=== PATIENT | female | born 1955 | race Caucasian/White ===

== ENCOUNTER → 2019-10-19 | Outpatient (CLI) | payer MEDICARE, OTHER, SELFPAY | PROVIDERS: Family Provider Family Medicine; Visit Provider Specialist | DX: M17.11 Unilateral primary osteoarthritis, right knee (principal) | CPT/HCPCS: L1812 ==

== ENCOUNTER 2019-10-28 10:49 | Outpatient (CLI) | payer MEDICARE, OTHER, SELFPAY ==
--- NOTE | 2019-10-28 10:59 | MR_ITS ---
WS: [id number] MRI RIGHT KNEE NONCONTRAST TECHNIQUE: Axial PD, coronal PD fat sat, coronal PD, sagittal PD, and sagittal PD fat-sat images obta ined. CLINICAL INFORMATION: PRIMARY OSTEOARTHRITIS RT KNEE COMPARISON: None. FINDINGS: Anterior and posterior cruciate ligaments are intact. Distal quadriceps and patella tendons are intac t. Hypertrophic patella. Normal lateral meniscus. Chronic appearing narrowing of the medial joint compartment. Moderate chondromalacia and subchondral edema in the dista l medial femoral condyle. Chronic blunting of the medial meniscus. No acute appearing meniscal tears. Hypertrophic changes along the joint line. Medial and lateral collateral ligaments are intact. Mild c hondromalacia patella. Medial and lateral patellar retinacula appear intact. MR/MR knee RT wo con* [id number] IMPRESSION: 1. Anterior and posterior cruciate ligaments are intact. 2. Chronic thinning of the medial meniscus with moderate chondromalacia involv ing the medial joint compartment with joint space narrowing. 3. Subchondral edema medial femoral condyle. 4. Normal-appearing lateral meniscus. 5. Moderate chondromalacia patella. No subchondral edema.
== END 2019-10-28 10:50 | disposition home or self-care (01) ==
LOC: RADSHAW 10:55
PROVIDERS: Family Provider Family Medicine; PCP Family Medicine; Visit Provider Specialist
DX: M17.11 Unilateral primary osteoarthritis, right knee (principal); M22.41 Chondromalacia patellae, right knee
CPT/HCPCS: 73721

== ENCOUNTER 2019-11-25 09:26 | Outpatient (RCR) | payer MEDICARE, OTHER, SELFPAY | END 2019-12-19 23:59 | disposition home or self-care (01) | LOC: SPT 09:26 | PROVIDERS: Family Provider Family Medicine; PCP Family Medicine; Referring Provider Specialist; Visit Provider Specialist | DX: M17.11 Unilateral primary osteoarthritis, right knee (principal) | CPT/HCPCS: 97110; 97161; 97530 ==

== ENCOUNTER 2019-12-20 06:00 | Outpatient (RCR) | payer MEDICARE, OTHER, SELFPAY | END 2020-01-19 23:59 | disposition home or self-care (01) | LOC: SPT 06:00 | PROVIDERS: Family Provider Family Medicine; PCP Family Medicine; Referring Provider Specialist; Visit Provider Specialist | DX: M17.11 Unilateral primary osteoarthritis, right knee (principal) | CPT/HCPCS: 97110 ==

== ENCOUNTER 2019-12-22 16:17 | Emergency (ER) | payer MEDICARE, OTHER, SELFPAY ==
[2019-12-22 16:20] VITALS: BP 131/87; PULSE 91; RESP 15; TEMP 36.9; O2SAT 99; BMI 36.8
--- NOTE | 2019-12-22 18:20 | ED_ITS ---
Entered by Cj Perez LPN, acting as scribe for Bradley Cool MD Dec 22, 2019 16:17 HPI - Abdominal Pain General: Chief Complaint: Abdominal Pain Stated Complaint: left sided abd pain Time Seen by Provider: 12/22/19 18:04 Source: patient Limitations: no limitations History of Present Illness: HPI narrative: 64 yo female presents with c/o left upper abd pain/ pain under the left ribs that started 2-3 days ago. She reports it was 10/10 on arrival to ER. She denies any n/v/d. She denies any rash. She was prescribed Zetia 5-6 weeks ago, had a bad headache the first day she took i t, then developed pain in the left abd, had that pain for about one week and stopped the Zetia. Pain improved some, then worsened again a couple days later. She had antiemetic at home that she took for nausea and it improved some. About one week ago the pain worsened again, she saw the walk in clinic and was prescribed Ranitidine, has been taking it, pain waxing and waning, now worse again for 2-3 days. She denies any chest pain or sob. Denies fever. Associated Symptoms: Reports nausea (has been nauseated, not in the last couple days. ); Denies chills, diarrhea, dysuria, fever(s) and vomiting Review of Systems Const: Denies: fever, chills, body aches or change in appetite Eyes: Denies: blurry vision or eye discomfort ENMT: Denies: throat pain or dental pain Card: Denies: chest pain Resp: Denies: shortness of breath GI: Reports: abdominal pain and nausea (has been nauseated, not in the last couple days. ); Denies: vomiting or diarrhea : Denies: painful urination Musc: Denies: neck pain or back pain Skin/Breast: Denies: rash Neuro: Denies: headache Psych: Denies: depression David/Lymph: Denies: easy bruising All/Imm: Denies: hives PFSH ED PFSH: Social History Smoking and tobacco status: never smoked Alcohol intake: never Physical Exam Const: COMMON NORMALS: no apparent distress, oriented x3 and healthy appearing HENMT: COMMON NORMALS: normocephalic and head/scalp atraumatic HEAD & SCALP: normocephalic and atraumatic Eye: COMMON NORMALS: PERRL and EOMs intact bilaterally PUPIL: Yes PERRL Neck/C-Spine: COMMON NORMALS: full ROM and supple Chest: COMMONS NORMALS: inspection of chest normal and palpation of chest normal Resp: COMMON NORMALS: normal respiratory effort, no retractions, no use of accessory muscles and clear to auscultation bilaterally AUSCULTATION: clear to auscultation bilaterally Cardio: COMMON NORMALS: regular rate, regular rhythm and no murmurs RATE: regular rate RHYTHM: regular rhythm GI: COMMON NORMALS: normal to inspection, nondistended, normoactive bowel sounds, soft to palpation and no masses PALPATION: Yes soft and Yes tender Details: LUQ Extremity: COMMON NORMALS: normal to inspection and full ROM Neuro: COMMON NORMALS: oriented x3, moves all extremities and no focal motor deficits Psych: COMMON NORMALS: mental status grossly normal, thought process normal and cooperative THOUGHT PROCESS: normal thought process Skin: COMMON NORMALS: no rashes or lesions noted and no wounds GENERAL SKIN EXAM: no rashes or lesions noted Course Vital Signs: Vital signs: Vital Signs Temperature 98.4 F 12/22/19 16:20 Pulse Rate 92 12/22/19 21:24 Respiratory Rate 18 12/22/19 21:24 Blood Pressure 127/70 12/22/19 21:24 Pulse Oximetry 98 12/22/19 21:24 MDM - Abdominal Pain MDM Narrative: Medical decision making narrative: Dionne presents with abdominal pain that is atypical in nature. CT scan here shows no acute findings. She does have a long history of IBS. Patient is stable for discharge and is to follow-up with primary care doctor in 3 to 5 days and return if worsening. Lab Data: Labs: Lab Results 12/22/19 12/22/19 12/22/19 Range/Units 18:12 18:37 18:37 WBC 10.8 H (4.0-10.0) 10^3/ uL RBC 4.48 (4.1-5.3) 10^6/u L Hgb 14.1 (11.5-15.3) g/dL Hct 42.2 (37.0-47.0) % MCV 94.2 (81-99) fL MCH 31.5 (28.0-34.0) pg MCHC 33.4 (30.0-36.0) g/dL RDW 12.8 (12.1-15.1) % Plt Count 382 (130-400) 10^3/c mm MPV 9.1 (7.4-10.4) fL Neut % (Auto) 59.5 % Lymph % (Auto) 22.7 % Glades % (Auto) 7.9 % Eos % (Auto) 8.7 % Baso % (Auto) 0.6 % Neut # (Auto) 6.4 (1.8-7.7) 10^3/u L Lymph # (Auto) 2.4 (0.8-4.8) 10^3/u L Glades # (Auto) 0.9 (0.2-0.9) 10^3/u L Eos # (Auto) 0.9 H (0.0-0.8) 10^3/u L Baso # (Auto) 0.1 (0.0-0.1) 10^3/u L Nucleated RBC % (a uto) 0 % Nucleated RBCs # 0.0 /100WBC Sodium 135 L (136-145) mmol/L Potassium 4.0 (3.5-5.1) mmol/L Chloride 95 L (98-107) mmol/L Carbon Dioxide 24 (22-29) mmol/L Anion Gap 20.0 H (5-19) BUN 13 (8-23) mg/dL Creatinine 0.8 (0.5-0.9) mg/dL GFR Calculation 72.0 L (90-130) mL/min Glucose 92 (65-115) mg/dL Calcium 9.8 (8.5-10.5) mg/dL Total Bilirubin 0.4 (0.15-1.2) mg/dL AST 49 H (0-32) U/L ALT 66 H (0-33) U/L Alkaline Phosphata se 86 (35-105) IU/L Total Protein 7.8 (6.6-8.7) g/dL Albumin 4.3 (3.5-5.2) g/dL Globulin 3.5 (1.3-4.6) g/dL Lipase 14 (13-60) U/L Urine Color Yellow (Yellow) Urine Appearance Clear (CLEAR) Urine pH 5 (5-7) Ur Specific Gravit y 1.010 (1.005-1.030) Urine Protein Neg (Negative) Urine Glucose (UA) Norm (Normal) Urine Ketones Negative (Negative) Urine Blood Neg (Negative) Urine Nitrate Negative (Negative) Urine Bilirubin Neg (NEGATIVE) Urine Urobilinogen Norm (Negative) mg/dL Ur Leukocyte Dilcia ase Negative (Negative) Imaging Data ^: CT Abd/Pel: Radiologist's impression: [address] [address] [address] Scan Report Signed Patient: Dionne Lu Unit #: [id number] : 1955 Age/Sex: 64 / F ADM Date: 12/22/19 Loc: ER Room/Bed: Attending Dr: Ordering Provider/Ordering MD: Bradley Cool MD Date of Service: 12/22/19 Procedure(s): CT abdomen pelvis w con* [id number] Accession Number(s): [id number] Report Number: [id number] PROCEDURE INFORMATION: Exam: CT Abdomen And Pelvis With Contrast Exam date and time: 12/22/2019 7:14 PM Age: 64 years old Clinical indication: Abdominal pain; Localized; Left lower quadrant (llq); Additional info: Abd pain TECHNIQUE: Imaging protocol: Computed tomography of the abdomen and pelvis with intravenous contrast. Total DLP: 1678.93 mGy-cm Radiation optimization: All CT scans at this facility use at least one of these dose optimization techniques: automated exposure control; mA and/or kV adjustment per patient size (includes targeted exams where dose is matched to clinical indication); or iterative reconstruction. Contrast material: OMNI 300; Contrast volume: 95 ml; Contrast route: RT AC; COMPARISON: MRI Hip w/o RIGHT [id number] 07/23/2018 10:26 AM FINDINGS: Lungs: Subpleural 5 mm calcified granuloma right lower lobe. Liver: Hepatomegaly at 20 cm. No mass. Gallbladder and bile ducts: Gallbladder not visualized and presumed surgically absent. No intra or extrahepatic biliary ectasia. Pancreas: Normal. No ductal dilation. Spleen: Splenic calcifications of antecedent granulomatous disease. Adrenals: Normal. No mass. Kidneys and ureters: Normal. No hydronephrosis. Stomach and bowel: Extensive diverticulosis coli primarily the sigmoid colon without evidence for acute diverticulitis. No visible evidence of epiploic appendagitis. Appendix: Appendix not visualized and presumed surgically absent. Intraperitoneal space: Unremarkable. No free air. No significant fluid collection. Vasculature: Arterial sclerosis. No abdominal aortic aneurysm. Lymph nodes: Unremarkable. No enlarged lymph nodes. Bladder: Unremarkable as visualized. Reproductive: Unremarkable as visualized. Bones/joints: Inter pedicle screw fixation L3, L4, and L5. Degenerative disease and degenerative disc disease of the spine. Spondylosis deformans. Mild levoscoliosis. Soft tissues: Unremarkable. Other findings: Calcified granulomas of antecedent histoplasmosis. CT/CT abdomen pelvis w con* [id number] IMPRESSION: 1. No visible evidence of active or acute abdominal or pelvic pathologic process. 2. Numerous non urgent, nonemergent, chronic, and age related findings detailed in text above. Radiation Dose CTDIVOL = (mGy): DLP = 1678.93 (mGy-cm) Discharge Plan Discharge Patient Disposition: Home, Self-Care Clinical Impression: Abdominal pain Qualifiers: Abdominal location: left upper quadrant Qualified Code(s): R10.12 - Left upper quadrant pain Condition: Stable Prescriptions: New Zofran 4 mg tablet 4 mg PO QID PRN (Reason: nausea and vomiting) Qty: 14 RF: 0 No Action Prempro 0.3-1.5 mg tablet 1 tab PO DAILY RF: 0 glipizide 10 mg tablet 10 mg PO DAILY RF: 0 pantoprazole [Protonix] 20 mg tablet,delayed release (DR/EC) 20 mg PO QDAY RF: 0 dicyclomine 10 mg capsule 10 mg PO TID RF: 0 metoprolol succinate 25 mg tablet extended release 24 hr 12.5 mg PO BID RF: 0 promethazine 25 mg tablet 25 mg PO BID PRNRF: 0 lisinopril-hydrochlorothiazide 10-12.5 mg tablet 1 tab PO DAILY RF: 0 Zyrtec 10 mg capsule 10 mg PO DAILY RF: 0 metformin 1,000 mg tablet 1,000 mg PO QDAY RF: 0 levothyroxine 150 mcg capsule 150 mcg PO DAILY RF: 0 cholestyramine (with sugar) 4 gram powder 4 gm PO BID RF: 0 Discharge Orders: Discharge Order (Routine); Ordered 12/22/19 Ordered By: Bradley Cool Referrals: Neel Harris MD [Primary Care Provider] - 4-7 days Discharge Diet: Advance as tolerated Discharge Activity: Resume usual activity Patient Instructions: Abdominal Pain (ED) Discharge Date/Time: 12/22/19 21:25 Coding Level of Care Code ED Painter Set for Chg Fwd Exam Comprehensive The documentation recorded by the Chris frazier Dani Elizabeth, LPN, accurately reflects the service I personally performed and the decisions made by Travon beard Korby, MD Dec 22, 2019 16:17
--- NOTE | 2019-12-22 18:24 | CTR_ITS ---
PROCEDURE INFORMATION: Exam: CT Abdomen And Pelvis With Contrast Exam date and time: 12/22/2019 7:14 PM Age: 64 years old Clinical indication: Abdominal pain; Localized; Left lower quadrant (llq); Additional info: Abd pain TECHNIQUE: Imaging protocol: Computed tomography of the abdomen and pelvis with intravenous contrast. Total DLP: 1678.93 mGy-cm Radiation optimization: All CT scans at this facility use at least one of these dose optimization techniques: automated exposure control; mA and/or kV adjustment per patient size (includes targeted exams where dose is matched to clinical indication); or iterative reconstruction. Contrast material: OMNI 300; Contrast volume: 95 ml; Contrast route: RT AC; COMPARISON: MRI Hip w/o RIGHT [id number] 07/23/2018 10:26 AM FINDINGS: Lungs: Subpleural 5 mm calcified granuloma right lower lobe. Liver: Hepatomegaly at 20 cm. No mass. Gallbladder and bile ducts: Gallbladder not visualized and presumed surgically absent. No intra or extrahepatic biliary ectasia. Pancreas: Normal. No ductal dilation. Spleen: Splenic calcifications of antecedent granulomatous disease. Adrenals: Normal. No mass. Kidneys and ureters: Normal. No hydronephrosis. Stomach and bowel: Extensive diverticulosis coli primarily the sigmoid colon without evidence for acute diverticulitis. No visible evidence of epiploic appendagitis. Appendix: Appendix not visualized and presumed surgically absent. Intraperitoneal space: Unremarkable. No free air. No significant fluid collection. Vasculature: Arterial sclerosis. No abdominal aortic aneurysm. Lymph nodes: Unremarkable. No enlarged lymph nodes. Bladder: Unremarkable as visualized. Reproductive: Unremarkable as visualized. Bones/joints: Inter pedicle screw fixation L3, L4, and L5. Degenerative disease and degenerative disc disease of the spine. Spondylosis deformans. Mild levoscoliosis. Soft tissues: Unremarkable. Other findings: Calcified granulomas of antecedent histoplasmosis. CT/CT abdomen pelvis w con* [id number] IMPRESSION: 1. No visible evidence of active or acute abdominal or pelvic pathologic process. 2. Numerous non urgent, nonemergent, chronic, and age related findings detailed in text above. Radiation Dose CTDIVOL = (mGy): DLP = 1678.93 (mGy-cm)
[2019-12-22] MEDS: sodium chloride 0.9% 1,000 ML 999 ML IV (18:34)
[2019-12-22] MEDS: morphine 4 mg/mL SDV 1 mL IVP ×2 (18:39→20:09)
[2019-12-22] MEDS: ondansetron 2 mg/ML SDV 2 mL 4 MG IVP ×2 (18:39→20:09)
[2019-12-22 18:46] LABS: Basophils # 0.1 10^3/uL (0.0-0.1); Basophils % 0.6 %; Eosinophils # 0.9 10^3/uL (0.0-0.8); Eosinophils % 8.7 %; Hematocrit 42.2 % (37.0-47.0); Hemoglobin 14.1 g/dL (11.5-15.3); Lymphocytes # 2.4 10^3/uL (0.8-4.8); Lymphocytes % 22.7 %; Mean Corpuscular HGB Conc 33.4 g/dL (30.0-36.0); Mean Corpuscular Hemoglobin 31.5 pg (28.0-34.0); Mean Corpuscular Volume 94.2 fL (81-99); Mean Platelet Volume 9.1 fL (7.4-10.4); Monocytes # 0.9 10^3/uL (0.2-0.9); Monocytes % 7.9 %; Neutrophils # 6.4 10^3/uL (1.8-7.7); Neutrophils % 59.5 %; Nucleated Red Blood Cells % 0 %; Platelet Count 382 10^3/cmm (130-400); Red Blood Count 4.48 10^6/uL (4.1-5.3); Red Cell Distribution Width 12.8 % (12.1-15.1); White Blood Count 10.8 10^3/uL (4.0-10.0)
[2019-12-22 18:46] LABS: Add Urine Microscopic? NO
[2019-12-22 18:58] LABS: Bilirubin Urine Neg (NEGATIVE); Blood Urine Neg (Negative); Glucose Urine UA Norm (Normal); Ketones Urine Negative (Negative); Leukocyte Esterase Urine Negative (Negative); Nitrate Urine Negative (Negative); Protein Urine Neg (Negative); Urine Appearance Clear (CLEAR); Urine Color Yellow (Yellow); Urobilinogen Urine Norm (Negative); pH Urine 5 (5-7)
[2019-12-22 19:02] LABS: Alanine Aminotransferase 66 U/L (0-33); Albumin Level 4.3 g/dL (3.5-5.2); Alkaline Phosphatase 86 IU/L (35-105); Blood Urea Nitrogen 13 mg/dL (8-23); Calcium 9.8 mg/dL (8.5-10.5); Carbon Dioxide 24 mmol/L (22-29); Chloride 95 mmol/L (98-107); Globulin 3.5 g/dL (1.3-4.6); Glucose 92 mg/dL (65-115); Lipase 14 U/L (13-60); Sodium 135 mmol/L (136-145); Total Bilirubin 0.4 mg/dL (0.15-1.2); Total Protein 7.8 g/dL (6.6-8.7)
[2019-12-22 19:04] LABS: Aspartate Amino Transferase 49 U/L (0-32)
[2019-12-22] MEDS: iohexol 300 mg/mL 100 mL Btl IV (19:28)
[2019-12-22 20:08] VITALS: BP 149/76; PULSE 97; RESP 18; O2SAT 99
[2019-12-22 20:09] VITALS: RESP 18; O2SAT 99
[2019-12-22] MEDS: metoclopramide 5 mg/mL SDV 2 mL IVP (20:45)
[2019-12-22] MEDS: diphenhydrAMINE 50 mg/mL SDV 1mL 25 MG IVP (20:48)
[2019-12-22 21:24] VITALS: BP 127/70; PULSE 92; RESP 18; O2SAT 98
== END 2019-12-22 21:25 | disposition home or self-care (01) ==
PROVIDERS: Emergency Provider Emergency Medicine; Family Provider Family Medicine; PCP Family Medicine
DX: R10.9 Unspecified abdominal pain (principal)
CPT/HCPCS: 36415; 74177; 80053; 81003; 83690; 85025; 96360; 96361; 96374; 96375; 96376; 99283; 99284; J1200; J2270; J2405; J2765; J7030; Q9967

== ENCOUNTER → 2020-01-04 11:05 | Outpatient (BNVA) | payer MEDICARE, OTHER, SELFPAY | PROVIDERS: Family Provider Family Medicine; PCP Family Medicine; Visit Provider Obstetrics & Gynecology | DX: C53.9 Malignant neoplasm of cervix uteri, unspecified (principal); Z78.9 Other specified health status | CPT/HCPCS: 88175 ==

== ENCOUNTER 2020-01-20 06:00 | Outpatient (RCR) | payer MEDICARE, OTHER, SELFPAY | END 2020-02-18 23:59 | disposition home or self-care (01) | LOC: SPT 06:00 | PROVIDERS: Family Provider Family Medicine; PCP Family Medicine; Referring Provider Specialist; Visit Provider Specialist | DX: M17.11 Unilateral primary osteoarthritis, right knee (principal) | CPT/HCPCS: 97110 ==

== ENCOUNTER 2020-02-19 06:00 | Outpatient (RCR) | payer MEDICARE, OTHER, SELFPAY | END 2020-03-20 23:59 | disposition home or self-care (01) | LOC: SPT 06:00 | PROVIDERS: Family Provider Family Medicine; PCP Family Medicine; Referring Provider Specialist; Visit Provider Specialist | DX: M17.11 Unilateral primary osteoarthritis, right knee (principal) | CPT/HCPCS: 97110 ==

== ENCOUNTER 2020-07-08 10:23 | Outpatient (CLI) | payer MEDICARE, OTHER, SELFPAY ==
--- NOTE | 2020-07-08 10:36 | MM_ITS ---
WS: [id number] BILATERAL DIGITAL SCREENING MAMMOGRAPHY WITH CAD CLINICAL INFORMATION: SCREENING HISTORY: Screening mammogram. No current complaints. COMPARISON: May 27, 20192017, 2015. TECHNIQUE: Bilateral CC and MLO views. FINDINGS: The breasts are composed of heterogeneous fibroglandular density tissue, which can limit the detectio n of small underlying mass lesions. Increasing asymmetric density upper outer left breast measuring 7 mm. Recommend spot compression views and ultrasound for further evaluation. A few incidental punctat e calcifications. Right breast is unchanged. MM/[place] [id number] IMPRESSION: BI-RADS: 0-Incomplete: Need additional imaging evaluation FOLLOW UP: Need Additional Imaging Recommend left diagnostic mammogram with spot compression views and ultrasound for further evaluation.
--- NOTE | 2020-08-15 10:53 | PC.NURSE ---
Spoke with Dr. Reeves nurse about pt abnormal mammo of Left breast. Biopsy recommended per radiologist. Nurse okay'd a verbal order to go ahead with biopsy as recommended. Jaron BILLS
--- NOTE | 2020-08-15 11:00 | PC.NURSE ---
Called patient regarding mammo result, recommending Bx. Patient has not seen Dr. Reeves since December. I requested the patient to see Dr. Reeves as soon as she can, so we can get the Bx done. Pt voiced understanding and will call office to schedule. Pt questions regarding Bx procedure answered, no other needs at this time. Jaron BILLS
== END 2020-07-08 10:24 | disposition home or self-care (01) ==
LOC: RADSHAW 10:27
PROVIDERS: PCP Family Medicine; Visit Provider Obstetrics & Gynecology
DX: Z12.31 Encounter for screening mammogram for malignant neoplasm of breast (principal); N64.89 Other specified disorders of breast
CPT/HCPCS: 77067

== ENCOUNTER 2020-08-12 09:13 | Outpatient (CLI) | payer MEDICARE, OTHER, SELFPAY ==
--- NOTE | 2020-08-12 09:33 | US_ITS ---
WS: [id number] LEFT DIGITAL MAMMOGRAPHY WITH CAD CLINICAL INFORMATION: LT BREAST ASYMMETRY COMPARISON: July 08, 2020 TECHNIQUE: 4 views of the left breast were obtained. FINDINGS: The left breast is composed of heterogeneous fibroglandular density tissue, which can limit the detec tion of small underlying mass lesions. A few punctate calcifications. Again seen is the 7 mm asymmetr ic density upper outer left breast. Ultrasound is pending. ULTRASOUND BREAST LEFT TECHNIQUE: Ultrasound left breast focused area of concern. CLINICAL INFORMATION: LT BREAST ASYMMETRY FINDINGS: Ultrasound left breast 1 to 3:00 position. Dense underlying parenchymal tissue. Hypoechoic lesion at the 3:00 position is not definitely cystic and may represent dilated duct or intraductal lesion. Onesimo mmend further evaluation with ultrasound-guided biopsy. US/US breast LT limited* [id number] BI-RADS: 4-Suspicious Finding-Biopsy Should Be Considered FOLLOW UP: US Guided Biopsy Recommended
--- NOTE | 2020-08-16 14:39 | PC.NURSE ---
Called patient to let her know Bx appt 08/22/20, check in at noon. Went over Bx information and instructions. Patient voiced understanding, and all questions were answered to patient satisfaction. Jaron BILLS
== END 2020-08-12 09:14 | disposition home or self-care (01) ==
LOC: RADSHAW 09:16
PROVIDERS: PCP Family Medicine; Visit Provider Obstetrics & Gynecology
DX: N64.89 Other specified disorders of breast (principal)
CPT/HCPCS: 76642; 77065

== ENCOUNTER 2020-08-22 12:18 | Outpatient (CLI) | payer MEDICARE, OTHER, SELFPAY ==
--- NOTE | 2020-08-22 13:00 | US_ITS ---
WS: [id number] ULTRASOUND-GUIDED LEFT BREAST BIOPSY CLINICAL INFORMATION: Abnormal Mammogram, Left Breast Lesion COMPARISON: None. FINDINGS: The procedure including risks, benefits, and complications were discussed with the patient who agreed to proceed. Using sterile technique patient was prepped and draped in the usual sterile fashion. Aft er 1% lidocaine utilizing real-time ultrasound guidance 5 14-gauge cores were obtained of the left br east lesion at the 3 o'clock position. Subsequently a titanium clip was placed in the biopsy cavity. No immediate complications. Pathology demonstrates Breast, left, ultrasound-guided biopsy: -Sclerosing adenosis. -No malignancy identified. US/[place] [id number] IMPRESSION: 1. Uncomplicated ultrasound-guided left breast biopsy. 2. The pathology demonstrates sclerosing adenosis. No malignancy identified. 3. Recommend 6 month follow-up left diagnostic mammography and ultrasound to c onfirm stability. BI-RADS: 2-Benign FOLLOW UP: 6 Month Follow-up
== END 2020-08-22 12:19 | disposition home or self-care (01) ==
LOC: RAD 12:22
PROVIDERS: PCP Family Medicine; Visit Provider Obstetrics & Gynecology
DX: R92.8 Other abnormal and inconclusive findings on diagnostic imaging of breast (principal); N64.89 Other specified disorders of breast; N60.22 Fibroadenosis of left breast
CPT/HCPCS: 19083; 88305

== ENCOUNTER → 2021-01-18 13:44 | Outpatient (BNVA) | payer MEDICARE, OTHER, SELFPAY | PROVIDERS: PCP Family Medicine; Visit Provider Obstetrics & Gynecology | DX: R10.31 Right lower quadrant pain (principal); Z90.722 Acquired absence of ovaries, bilateral; Z78.0 Asymptomatic menopausal state | CPT/HCPCS: 76830 ==

== ENCOUNTER 2021-03-06 10:23 | Outpatient (CLI) | payer MEDICARE, OTHER, SELFPAY ==
--- NOTE | 2021-03-06 09:30 | MM_ITS ---
WS: [id number] LEFT DIGITAL MAMMOGRAPHY WITH CAD CLINICAL INFORMATION: Z87.898 - Personal history of other specified conditions COMPARISON: August 12, 2020 TECHNIQUE: 4 views of the left breast were obtained. FINDINGS: The left breast is composed of heterogeneous fibroglandular density tissue, which can limit the detec tion of small underlying mass lesions. Punctate and clustered calcifications appear stable. Prior bio psy marker. Ultrasound is pending. ULTRASOUND BREAST LEFT TECHNIQUE: Ultrasound left breast focused area of concern. CLINICAL INFORMATION: Z87.898 - Personal history of other specified conditions FINDINGS: Ultrasound left breast at the 3:00 position. No suspicious lesions. Normal underlying breast josr aguiar is seen today. No suspicious findings. MM/[place] [id number] IMPRESSION: BI-RADS: 2-Benign FOLLOW UP: See Report Recommend return to annual screening mammography.
--- NOTE | 2021-03-06 10:15 | US_ITS ---
WS: [id number] LEFT DIGITAL MAMMOGRAPHY WITH CAD CLINICAL INFORMATION: Z87.898 - Personal history of other specified conditions COMPARISON: August 12, 2020 TECHNIQUE: 4 views of the left breast were obtained. FINDINGS: The left breast is composed of heterogeneous fibroglandular density tissue, which can limit the detec tion of small underlying mass lesions. Punctate and clustered calcifications appear stable. Prior bio psy marker. Ultrasound is pending. ULTRASOUND BREAST LEFT TECHNIQUE: Ultrasound left breast focused area of concern. CLINICAL INFORMATION: Z87.898 - Personal history of other specified conditions FINDINGS: Ultrasound left breast at the 3:00 position. No suspicious lesions. Normal underlying breast josr aguiar is seen today. No suspicious findings. US/US breast LT limited* [id number] IMPRESSION: BI-RADS: 2-Benign FOLLOW UP: See Report Recommend return to annual screening mammography.
== END 2021-03-06 10:24 | disposition home or self-care (01) ==
LOC: RADSHAW 10:25
PROVIDERS: PCP Family Medicine; Visit Provider Obstetrics & Gynecology
DX: Z87.898 Personal history of other specified conditions (principal); Z85.3 Personal history of malignant neoplasm of breast; R92.8 Other abnormal and inconclusive findings on diagnostic imaging of breast
CPT/HCPCS: 76642; 77065

== ENCOUNTER 2021-07-19 09:29 | Outpatient (RCR) | payer MEDICARE, OTHER, SELFPAY | END 2021-07-20 23:59 | disposition home or self-care (01) | LOC: SPT 09:29 | PROVIDERS: PCP Family Medicine; Referring Provider Family Medicine; Visit Provider Family Medicine | DX: M54.32 Sciatica, left side (principal) | CPT/HCPCS: 97110; 97162 ==

== ENCOUNTER 2021-07-21 06:00 | Outpatient (RCR) | payer MEDICARE, OTHER, SELFPAY | END 2021-08-20 23:59 | disposition home or self-care (01) | LOC: SPT 06:00 | PROVIDERS: PCP Family Medicine; Referring Provider Family Medicine; Visit Provider Family Medicine | DX: M54.32 Sciatica, left side (principal) | CPT/HCPCS: 97110 ==

== ENCOUNTER 2021-08-21 06:00 | Outpatient (RCR) | payer MEDICARE, OTHER, SELFPAY | END 2021-09-19 23:59 | disposition home or self-care (01) | LOC: SPT 06:00 | PROVIDERS: PCP Family Medicine; Referring Provider Family Medicine; Visit Provider Family Medicine | DX: M54.32 Sciatica, left side (principal) | CPT/HCPCS: 97110 ==

== ENCOUNTER 2021-09-20 06:00 | Outpatient (RCR) | payer MEDICARE, OTHER, SELFPAY | END 2021-09-22 23:59 | disposition home or self-care (01) | LOC: SPT 06:00 | PROVIDERS: PCP Family Medicine; Referring Provider Family Medicine; Visit Provider Family Medicine | DX: M54.2 Cervicalgia (principal) | CPT/HCPCS: 97110 ==

== ENCOUNTER 2021-10-04 11:14 | Outpatient (CLI) | payer MEDICARE, OTHER, SELFPAY ==
--- NOTE | 2021-10-04 11:30 | MM_ITS ---
WS: [id number] BILATERAL DIGITAL SCREENING MAMMOGRAPHY WITH CAD CLINICAL INFORMATION: Z12.39 - Encounter for other screening for malignant neop... HISTORY: Screening mammogram. No current complaints. COMPARISON: March 06, 2021 TECHNIQUE: Bilateral CC and MLO views. FINDINGS: Scattered fibroglandular densities bilaterally. Coarse punctate calcifications left breast similar in appearance. Biopsy marker left breast. No suspicious focal mass, asymmetry, calcifications, or archi tectural distortion. No evidence of malignancy. MM/[place] [id number] IMPRESSION: BI-RADS: 2-Benign FOLLOW UP: 1 Year Follow-up Recommend return to annual screening mammography.
== END 2021-10-04 11:15 | disposition home or self-care (01) ==
LOC: RADSHAW 11:17
PROVIDERS: PCP Family Medicine; Visit Provider Obstetrics & Gynecology
DX: Z12.31 Encounter for screening mammogram for malignant neoplasm of breast (principal)
CPT/HCPCS: 77067

== ENCOUNTER 2022-06-11 21:44 | Emergency (ER) | payer MEDICARE, OTHER, SELFPAY ==
[2022-06-11 21:50] VITALS: BMI 34.1
[2022-06-11 21:55] VITALS: BP 119/65; PULSE 108; RESP 16; TEMP 37.5; O2SAT 95
--- NOTE | 2022-06-11 22:00 | XRR_ITS ---
PROCEDURE INFORMATION: Exam: XR Chest Exam date and time: 06/11/2022 10:10 PM Age: 67 years old Clinical indication: Other: Covid positive; Additional info: Cough TECHNIQUE: Imaging protocol: Radiologic exam of the chest. Views: 1 view. COMPARISON: [facility] Chest 2 views 02/29/2016 2:50 PM FINDINGS: Lungs: Shallow inspiration with atelectasis in the left lung base. Probable mild ground-glass opacities in the peripheral lungs. No consolidation. Pleural spaces: Unremarkable. No pleural effusion. No pneumothorax. Heart/Mediastinum: Unremarkable. No cardiomegaly. Bones/joints: Unremarkable. XR/XR chest 1V portable [id number] IMPRESSION: Mild ground-glass opacities in the peripheral lungs are suspicious for pneumonia.
--- NOTE | 2022-06-11 22:15 | W.ED.HA ---
HPI - Headache General: Chief Complaint: Headache Stated Complaint: Covid Time Seen by Provider: 06/11/22 22:02 Source: patient Mode of arrival: ambulatory Limitations: no limitations History of Present Illness: 67-year-old female states of last 2 days she been having cough some slight congestion body aches low-grade fevers and a headache. States that she tested positive for COVID today her also tested positive. Patient here is in no distress she is not hypoxic states that she just has body aches. Denies any vomiting or diarrhea. Denies any worsening proving factors Associated symptoms: Reports fever(s); Deny chest pain, nausea, rash or vomiting Review of Systems Const: Reports: fever(s), chills and body aches Eyes: Denies: blurry vision or eye discomfort ENMT: Denies: throat pain or dental pain Card: Denies: chest pain Resp: Reports: non-productive cough GI: Denies: abdominal pain, nausea, vomiting or diarrhea : Denies: dysuria Musc: Denies: neck pain or back pain Skin/Breast: Denies: rash Neuro: Reports: headache(s) Psych: Denies: depression David/Lymph: Denies: easy bruising All/Imm: Denies: urticaria PFSH ED PFSH: Medical History Diabetes Hypertension Hypothyroidism Surgical History S/P arthroscopy of right shoulder 07/2007 S/P bilateral oophorectomy unknown date LSO S/P cataract extraction 2004, bilateral S/P cervical spinal fusion 06/2007 S/P cholecystectomy S/P dilatation and curettage 2001, 2011, 2016 S/P left rotator cuff repair S/P spinal fusion 07/2010 Status post hip surgery 2019- right hip abductor repair, Dr. Rodrigez Status post hysteroscopic polypectomy 10/16/2017- Performed by Dr. Reeves at [facility] in [place], [place]. Family History Grandmother Diabetes maternal Daughter No problems noted. Brother Diabetes Heart disease Hyperlipidemia Father Heart disease Hyperlipidemia Hypertension Sister Breast cancer age onset unknown Colon cancer age onset unknown Denies family history of Ovarian cancer Clotting disorder Anesthesia complication Bleeding disorder Uterine cancer Thyroid condition Stroke Social History Smoking and tobacco status: never smoked Alcohol intake: never Physical Exam Const: COMMON NORMALS: no acute distress, patient oriented x3 and healthy appearing HENMT: COMMON NORMALS: normocephalic and atraumatic HEAD & SCALP: normocephalic and atraumatic Eye: COMMON NORMALS: Equal, round and reactive pupils present and EOMs intact bilaterally PUPIL: Yes Equal, round and reactive pupils present Neck/C-Spine: COMMON NORMALS: full ROM and supple Chest: COMMONS NORMALS: normal inspection of the chest and normal palpation of entire chest wall Resp: COMMON NORMALS: normal respiratory effort, No retractions, No use of accessory muscles and clear to auscultation bilaterally AUSCULTATION: clear to auscultation bilaterally Cardio: COMMON NORMALS: regular rate, regular rhythm and No murmurs present (Cardio) RATE: regular rate RHYTHM: regular rhythm GI: COMMON NORMALS: Normal to inspection, nondistended, normoactive bowel sounds present, Soft to palpation, non-tender and no masses PALPATION: Yes Soft to palpation Extremity: COMMON NORMALS: normal to inspection and full ROM Neuro: COMMON NORMALS: patient oriented x3, moves all extremities and no focal motor deficits Psych: COMMON NORMALS: mental status grossly normal, Normal thought process present and cooperative THOUGHT PROCESS: Normal thought process present Skin: COMMON NORMALS: no rashes or lesions noted and no wounds GENERAL SKIN EXAM: no rashes or lesions noted Course Vital Signs: Vital signs: Vital Signs Temperature 99.5 F 06/11/22 21:55 Pulse Rate 108 H 06/11/22 21:55 Respiratory Rate 16 06/11/22 21:55 Blood Pressure 119/65 06/11/22 21:55 Pulse Oximetry 95 06/11/22 21:55 Oxygen Delivery Me thod 06/11/22 21:55 MDM - Headache Medical Decision Making Patient presents with symptoms consistent with COVID she is well-appearing here in no distress x-ray here is normal she is stable for discharge she is to follow-up with her PCP and return if worsening she understands agrees to plan. Discharge Plan Discharge Patient Disposition: Home Clinical Impression: COVID-19 Condition: Stable Prescriptions: New Paxlovid (EUA) 150 mg x 2- 100 mg tablet See Rx Instructions .ROUTE .COMPLEX Qty: 30 0RF Rx Instructions: take TWO 150 mg tablets of nirmatrelvir with ONE 100 mg tablet of ritonavir twice daily for 5 days No Action dicyclomine 10 mg capsule 10 mg PO TID promethazine 25 mg tablet 25 mg PO BID PRN Zyrtec 10 mg capsule 10 mg PO DAILY metoprolol succinate 25 mg tablet extended release 24 hr 25 mg PO BID levothyroxine 150 mcg capsule 200 mcg PO DAILY cholestyramine (with sugar) 4 gram powder 4 gm PO DAILY Prempro 0.3-1.5 mg tablet 1 tab PO .every other day metformin 1,000 mg tablet 1,000 mg PO BID pantoprazole [Protonix] 20 mg tablet,delayed release (DR/EC) 40 mg PO QDAY lisinopril-hydrochlorothiazide 20-12.5 mg tablet 1 tab PO DAILY glyburide 5 mg tablet 5 mg PO BID Discharge Orders: Discharge ED (Routine); Ordered 06/11/22 Ordered By: Bradley Cool Referrals: Neel Harris MD [Primary Care Provider] - 1-3 days Discharge Diet: Advance as tolerated Discharge Activity: Resume usual activity Patient Instructions: COVID-19 (Coronavirus Disease 2019) (ED) Coding Level of Care Code ED Tab Card Press Operator for Jaime Fwd Exam Comprehensive
[2022-06-11] MEDS: dexamethasone 10 mg/mL INJ IM (22:28)
== END 2022-06-11 22:31 | disposition home or self-care (01) ==
PROVIDERS: Emergency Provider Emergency Medicine; PCP Family Medicine
DX: U07.1 COVID-19 (principal); Z79.84 Long term (current) use of oral hypoglycemic drugs; E11.9 Type 2 diabetes mellitus without complications; I10 Essential (primary) hypertension
CPT/HCPCS: 71045; 96372; 99284; J1100

== ENCOUNTER 2023-02-13 12:46 | Outpatient (CLI) | payer MEDICARE, OTHER, SELFPAY ==
--- NOTE | 2023-02-13 13:05 | MM_ITS ---
WS: [id number] BILATERAL 3D TOMOSYNTHESIS DIGITAL SCREENING MAMMOGRAPHY WITH CAD CLINICAL INFORMATION: SCREENING HISTORY: Screening mammogram. No current complaints. COMPARISON: 2020 TECHNIQUE: Bilateral CC and MLO views. FINDINGS: The breasts are composed of heterogeneous fibroglandular density tissue, which can limit the detectio n of small underlying mass lesions. No suspicious mass, asymmetry, calcifications, or architectural d istortion. No evidence of malignancy. Stable heterogeneous clustered calcifications LEFT breast. Biop sy marker LEFT breast. Incidental punctate calcifications RIGHT breast. MM/[place] [id number] IMPRESSION: BI-RADS: 2-Benign FOLLOW UP: 1 Year Follow-up Recommend return to annual screening mammography.
== END 2023-02-13 12:47 | disposition home or self-care (01) ==
LOC: RAD 12:49
PROVIDERS: PCP Family Medicine; Visit Provider Obstetrics & Gynecology
DX: Z12.31 Encounter for screening mammogram for malignant neoplasm of breast (principal)
CPT/HCPCS: 77063; 77067

== ENCOUNTER 2023-05-09 19:36 | Emergency (ER) | payer MEDICARE, OTHER, SELFPAY ==
[2023-05-09 19:40] VITALS: BMI 36.8
[2023-05-09 19:42] VITALS: BP 149/78; PULSE 94; RESP 16; TEMP 37.2; O2SAT 99
--- NOTE | 2023-05-09 19:50 | ED_ITS ---
HPI - Back Pain/Injury General: Chief Complaint: Back Pain/Injury Stated Complaint: Back Pain Time Seen by Provider: 05/09/23 19:49 History of Present Illness: 68-year-old female comes in today with complaints of low back pain. Patient reports that she has had 2 fusions of her low back. Patient has had increased back pain over the last month. Patient is waiting to get into pain management and physical therapy. Today patient had went to the bathroom and could not get up off the toilet and EMS was called. Patient appears nontoxic. Patient appears no acute distress. Review of Systems General: Reports: 10 or more systems reviewed and unremarkable except in HPI and below Musc: Reports: back pain PFSH ED PFSH: Medical History Diabetes Hypertension Hypothyroidism Surgical History S/P arthroscopy of right shoulder 07/2007 S/P bilateral oophorectomy unknown date LSO S/P cataract extraction 2004, bilateral S/P cervical spinal fusion 06/2007 S/P cholecystectomy S/P dilatation and curettage 2001, 2011, 2016 S/P left rotator cuff repair S/P spinal fusion 07/2010 Status post hip surgery 2018- right hip abductor repair, Dr. Rodrigez Status post hysteroscopic polypectomy 10/16/2017- Performed by Dr. Reeves at [facility] in [place], [place]. Family History Grandmother Diabetes maternal Daughter No problems noted. Brother Diabetes Heart disease Hyperlipidemia Father Heart disease Hyperlipidemia Hypertension Sister Breast cancer age onset unknown Colon cancer age onset unknown Denies family history of Ovarian cancer Clotting disorder Anesthesia complication Bleeding disorder Uterine cancer Thyroid condition Stroke Social History Smoking and tobacco status: never smoked Alcohol intake: never Substance/Drug Use: never Physical Exam Const: COMMON NORMALS: alert HENMT: COMMON NORMALS: normocephalic HEAD & SCALP: normocephalic Neck/C-Spine: COMMON NORMALS: full ROM Resp: COMMON NORMALS: normal respiratory effort Cardio: COMMON NORMALS: regular rate and regular rhythm RATE: regular rate RHYTHM: regular rhythm Back/Pelvis: LUMBAR SPINE/LOWER BACK: Yes lumbar spinal tenderness Lumbar spinal tenderness location: L5 Extremity: COMMON NORMALS: normal to inspection Neuro: SENSORIUM/ORIENTATION: Yes alert Skin: COMMON NORMALS: turgor normal GENERAL SKIN EXAM: turgor normal Course Vital Signs: Vital signs: Vital Signs Temperature 98.9 F 05/09/23 19:42 Pulse Rate 91 05/09/23 21:51 Respiratory Rate 18 05/09/23 21:51 Blood Pressure 144/82 05/09/23 21:51 Pulse Oximetry 97 05/09/23 21:51 Oxygen Delivery Me thod Room Air 05/09/23 19:42 MDM - Back Pain/Injury Medical Decision Making 68-year-old female comes in today for complaints of increased pain to the low back for about 4 weeks. On exam patient has tenderness midline to the lumbar spine and L4 L5-S1 area. Patient has a scar to the lumbar area. No signs of redness or inflammation is noted. Vital signs are normal except for some mild elevation in blood pressure. Differential diagnosis includes but not limited to intervertebral disc disease, facet arthritis, lumbar strain. Believe this is patient's exacerbation of chronic back pain. Patient has not multiple limi tations on pain medication she can take. Most medication causes her to be nauseous or causes hives. X-ray of the back noted severe degenerative disease. Hardware and spacers remain intact from patient's prior surgeries without any damage. No acute fractures were noted. Spouse was upset due to the fact that his primary care, Dr. Harris, was supposed to have patient referred to pain management and physical therapy but has yet to be done. Patient was given 1 mg of Dilaudid and 4 mg of ondansetron. Patient had minimal relief of pain but increased nausea and vomiting after medications. I offered more medication for pain but patient refused. Patient was given 25 mg of promethazine for nausea. Case management will be requested to assist with pain management follow-up. Labs Radiology Impressions Lumbar Spine X-Ray 05/09/23 20:14 IMPRESSION: No evidence of acute disease. Discharge Plan Discharge Patient Disposition: Home Clinical Impression: Low back pain Qualifiers: Chronicity: acute Back pain laterality: midline Sciatica presence: without sciatica Qualified Code(s): M54.50 - Low back pain, unspecified Condition: Stable Prescriptions: New tramadol 50 mg tablet 50 mg PO Q6H PRN (Reason: pain (scale score 7-10)) Qty: 12 0RF ondansetron HCl 4 mg tablet 4 mg PO Q8H PRN (Reason: nausea and vomiting) Qty: 12 0RF No Action dicyclomine 10 mg capsule 10 mg PO TID promethazine 25 mg tablet 25 mg PO BID PRN Zyrtec 10 mg capsule 10 mg PO DAILY metoprolol succinate 25 mg tablet extended release 24 hr 25 mg PO BID levothyroxine 150 mcg capsule 200 mcg PO DAILY cholestyramine (with sugar) 4 gram powder 4 gm PO DAILY Prempro 0.3-1.5 mg tablet 1 tab PO .every other day metformin 1,000 mg tablet 1,000 mg PO BID pantoprazole [Protonix] 20 mg tablet,delayed release (DR/EC) 40 mg PO QDAY lisinopril-hydrochlorothiazide 20-12.5 mg tablet 1 tab PO DAILY glyburide 5 mg tablet 5 mg PO BID Paxlovid (EUA) 150 mg x 2- 100 mg tablet See Rx Instructions .ROUTE .COMPLEX Qty: 30 0RF Rx Instructions: take TWO 150 mg tablets of nirmatrelvir with ONE 100 mg tablet of ritonavir twice daily for 5 days Discharge Orders: Discharge ED (Routine); Ordered 05/09/23 Ordered By: Jimmie Koenig Referrals: Neel Harris MD [Primary Care Provider] - Discharge Diet: Usual diet Discharge Activity: Increase activity as tolerated Patient Instructions: Back Pain (ED), Opioid Safety, Pain Management Activity Restrictions/Additional Instructions: Use medication as directed. Drink plenty of water with pain medicine to help with nausea. Use ondansetron for further control of nausea while taking pain medication. Try to maintain activity as much as possible. Follow-up with primary care for further instructions. Return to ED for new concerns or worsening symptoms. Coding Level of Care Code ED [employer]fuels Processing Technician for Jaime Glass
[2023-05-09 20:10] VITALS: RESP 7
[2023-05-09] MEDS: ondansetron 2 mg/ML SDV 2 mL 4 MG IM (20:10)
[2023-05-09] MEDS: HYDROmorphone 1 mg/mL INJ 1 mL IM (20:10)
--- NOTE | 2023-05-09 20:14 | XRR_ITS ---
PROCEDURE INFORMATION: Exam: XR Lumbosacral Spine Exam date and time: 05/09/2023 8:20 PM Age: 68 years old Clinical indication: Low back pain; Prior surgery; Surgery date: 6+ months TECHNIQUE: Imaging protocol: Radiologic exam of the lumbosacral spine. Views: 2 or 3 views. COMPARISON: CT abdomen pelvis w con* [id number] 12/22/2019 7:42 PM FINDINGS: Bones/joints: Patient is status post fusion of the L3, L4 and L5 vertebral bodies. There are disc spacers in position. The hardware is intact. There are no acute fractures. There is severe degenerative disease of the spine with multiple osteophytes noted. There is a large bridging lateral osteophyte between the right side of L1 and L2 Soft tissues: Unremarkable. Vasculature: Aortic calcification is noted. XR/XR lumbar spine 2-3V* [id number] IMPRESSION: No evidence of acute disease.
--- NOTE | 2023-05-09 20:19 | PC.NURSE ---
Patient's stated, So all you guys are going to do is give her a pain shot and send her home? Nurse educated that the provider ordered pain and nausea medicine to help relieve patient's current 7/10 pain. stated, If that's all you are going to do, then I want to talk to your manager of community relations. Provider was notified; subsequent tests put in, and notified of provider's orders. appeared content with the decision at this time.
[2023-05-09] MEDS: promethazine 25 mg/mL SDV 1 mL IM (21:26)
[2023-05-09 21:51] VITALS: BP 144/82; PULSE 85; PULSE 91; RESP 18; O2SAT 96; O2SAT 97
--- NOTE | 2023-05-10 10:14 | DCPLANNER ---
manager resort had message to refer patient to pain management and physical therapy. manager resort called patient and explained that the referrals would need to come from patients primary care physician. Patients stated that the primary care physician was supposed to start the referrals but that the patient had not heard anything from the primary care. Patients primary care physician is Dr. Harris, casey saw operator called [facility] and left a message for Dr. Harris, that patient was seen in the ER and that the ER physician was wanting pain management and physical therapy for patient. manager resort was told that the office is working on both of those referrals. Clinic will call patient and update patient that they are working on those referrals.
== END 2023-05-09 21:57 | disposition home or self-care (01) ==
PROVIDERS: Emergency Provider Nurse Practitioner Family; PCP Family Medicine
DX: M54.50 Low back pain, unspecified (principal); E11.9 Type 2 diabetes mellitus without complications; I10 Essential (primary) hypertension
CPT/HCPCS: 72100; 96372; 99284; J1170; J2405; J2550

== ENCOUNTER 2023-05-12 21:31 | Emergency (ER) | payer MEDICARE, OTHER, SELFPAY ==
[2023-05-12 21:40] VITALS: BP 160/89; PULSE 102; RESP 16; TEMP 36.7; O2SAT 99; BMI 34.4
[2023-05-12 22:16] VITALS: BP 147/88; PULSE 102; RESP 18; O2SAT 96
[2023-05-12 22:42] LABS: Basophils # 0.1 10^3/uL (0.0-0.1); Basophils % 0.5 %; Eosinophils # 0.4 10^3/uL (0.0-0.8); Eosinophils % 3.9 %; Hematocrit 38.6 % (37.0-47.0); Hemoglobin 12.7 g/dL (11.5-15.3); Lymphocytes # 2.5 10^3/uL (0.8-4.8); Lymphocytes % 24.6 %; Mean Corpuscular HGB Conc 32.9 g/dL (30.0-36.0); Mean Corpuscular Hemoglobin 29.4 pg (28.0-34.0); Mean Corpuscular Volume 89.4 fl (81-99); Mean Platelet Volume 9.5 fL (7.4-10.4); Monocytes # 0.7 10^3/uL (0.2-0.9); Monocytes % 6.7 %; Neutrophils # 6.44 10^3/uL (1.8-7.7); Neutrophils % 63.9 %; Nucleated Red Blood Cells % 0 %; Platelet Count 346 10^3/cmm (130-400); Red Blood Count 4.32 10^6/uL (4.1-5.3); Red Cell Distribution Width 12.5 % (12.1-15.1); White Blood Count 10.1 10^3/uL (4.0-10.0)
[2023-05-12 23:06] LABS: Alanine Aminotransferase 35 U/L (0-33); Albumin Level 4.2 g/dL (3.5-5.2); Alkaline Phosphatase 92 U/L (35-105); Aspartate Amino Transferase 25 U/L (0-32); Blood Urea Nitrogen 13 mg/dL (8-23); Calcium 9.4 mg/dL (8.5-10.5); Carbon Dioxide 28 mmol/L (22-29); Chloride 96 mmol/L (98-107); Globulin 3.4 g/dL (1.3-4.6); Glomerular Filtration Rate 71.1 mL/min (90-130); Glucose 174 mg/dL (65-115); Lipase 17 U/L (13-60); Osmolality Calculated 284 mOsm/kg (285-295); Sodium 135 mmol/L (136-145); Total Bilirubin 0.2 mg/dL (0.15-1.2); Total Protein 7.6 g/dL (6.6-8.7)
[2023-05-12 23:16] VITALS: BP 164/94; PULSE 96; RESP 16; O2SAT 98
--- NOTE | 2023-05-12 23:16 | CTR_ITS ---
PROCEDURE INFORMATION: Exam: CT Abdomen And Pelvis With Contrast Exam date and time: 05/12/2023 11:41 PM Age: 68 years old Clinical indication: Abdominal pain; Localized; Right; Prior surgery; Surgery date: 6+ months; Surgery type: Gb. Lumbar fusion; Patient HX: RT flank/rlq and back pain. ; Additional info: Flank pain/back pain TECHNIQUE: Imaging protocol: Computed tomography of the abdomen and pelvis with contrast. Radiation optimization: All CT scans at this facility use at least one of these dose optimization techniques: automated exposure control; mA and/or kV adjustment per patient size (includes targeted exams where dose is matched to clinical indication); or iterative reconstruction. Contrast material: OMNI 350; Contrast volume: 100 ml; Contrast route: INTRAVENOUS (IV); REPORTING DATA: Count of CT and Cardiac NM exams in prior 12 months: This patient has received 0 known CTs and 0 known cardiac nuclear medicine studies in the 12 months prior to the current study. COMPARISON: CT abdomen pelvis w con* [id number] 12/22/2019 7:42 PM RADIATION DOSE METRICS: Total DLP (mGy-cm): 1062.74 FINDINGS: Lungs: Moderate lung base scarring with fibrosis. A few minute calcified lung nodules are seen incidentally. Diaphragm: Minute hiatal hernia. Liver: Unremarkable. No enhancing mass. Gallbladder and bile ducts: Absent gallbladder. Pancreas: Unremarkable with no suspicious mass. No ductal dilation. Spleen: The spleen is not enlarged. No suspicious enhancing mass is noted. Adrenal glands: Normal. No mass. Kidneys and ureters: No solid renal mass or hydronephrosis. Stomach and bowel: Moderate sigmoid diverticulosis. No small bowel dilation. Appendix: No evidence of appendicitis. Intraperitoneal space: Unremarkable. No free air. No suspicious fluid collection. Vasculature: Advanced diffuse vascular calcification noted. Small pelvic phleboliths. Lymph nodes: No enlarged lymph nodes. Urinary bladder: Unremarkable as visualized. Reproductive: Unremarkable as visualized. Bones/joints: No acute fracture. L3-5 fusion is intact. Soft tissues: No acute or suspicious finding noted. CT/CT abdomen pelvis w con* [id number] IMPRESSION: 1. No small bowel obstruction, abscess or free air. 2. No hydronephrosis. 3. Postop and other chronic findings above. Fecal filled colon.
[2023-05-12] MEDS: metoclopramide 5 mg/mL SDV 2 mL IVP (23:29)
[2023-05-12] MEDS: diphenhydrAMINE 50 mg/mL SDV 1mL 25 MG IVP (23:29)
[2023-05-12 23:30] VITALS: RESP 18
[2023-05-12] MEDS: morphine 4 mg/mL SDV 1 mL IVP (23:30)
[2023-05-12] MEDS: iohexol 350 mg/mL 500 mL Btl (per mL) IV (23:41)
--- NOTE | 2023-05-12 23:50 | ED_ITS ---
HPI - Back Pain/Injury General: Chief Complaint: Back Pain/Injury Stated Complaint: back pain Time Seen by Provider: 05/12/23 22:21 Source: patient Mode of arrival: ambulatory Limitations: no limitations History of Present Illness: 68-year-old female states she been having back pain over the last month seen here few days ago prescribed tramadol states that this made her sick to her stomach she not able to take it. States pain is in her low back rates an 8 out of 10 its been constant nature she denies any worsening improving factors. Denies any fevers or dysuria Associated symptoms: Deny abdominal pain, chills, fever(s), nausea or vomiting Review of Systems Const: Denies: fever(s), chills, body aches or change in appetite Eyes: Denies: blurry vision or eye discomfort ENMT: Denies: throat pain or dental pain Card: Denies: chest pain Resp: Denies: dyspnea GI: Denies: abdominal pain, nausea, vomiting or diarrhea Musc: Reports: back pain; Denies: neck pain Skin/Breast: Denies: rash Neuro: Denies: headache(s) Psych: Denies: depression David/Lymph: Denies: easy bruising All/Imm: Denies: urticaria PFSH ED PFSH: Medical History Diabetes Hypertension Hypothyroidism Surgical History S/P arthroscopy of right shoulder 07/2007 S/P bilateral oophorectomy unknown date LSO S/P cataract extraction 2004, bilateral S/P cervical spinal fusion 06/2007 S/P cholecystectomy S/P dilatation and curettage 2001, 2011, 2016 S/P left rotator cuff repair S/P spinal fusion 07/2010 Status post hip surgery 2019- right hip abductor repair, Dr. Rodrigez Status post hysteroscopic polypectomy 10/16/2017- Performed by Dr. Reeves at [facility] in [place], [place]. Family History Grandmother Diabetes maternal Daughter No problems noted. Brother Diabetes Heart disease Hyperlipidemia Father Heart disease Hyperlipidemia Hypertension Sister Breast cancer age onset unknown Colon cancer age onset unknown Denies family history of Ovarian cancer Clotting disorder Anesthesia complication Bleeding disorder Uterine cancer Thyroid condition Stroke Social History Smoking and tobacco status: never smoked Alcohol intake: never Substance/Drug Use: never Physical Exam Const: COMMON NORMALS: no acute distress, patient oriented x3 and healthy appearing HENMT: COMMON NORMALS: normocephalic and atraumatic HEAD & SCALP: normocephalic and atraumatic Neck/C-Spine: COMMON NORMALS: full ROM and supple Chest: COMMONS NORMALS: normal inspection of the chest and normal palpation of entire chest wall Resp: COMMON NORMALS: normal respiratory effort, No retractions, No use of accessory muscles and clear to auscultation bilaterally AUSCULTATION: clear to auscultation bilaterally Cardio: COMMON NORMALS: regular rate, regular rhythm and No murmurs present (Cardio) RATE: regular rate RHYTHM: regular rhythm GI: COMMON NORMALS: Normal to inspection, nondistended, normoactive bowel sounds present, Soft to palpation, non-tender and no masses PALPATION: Yes Soft to palpation Back/Pelvis: OTHER: Paraspinal tenderness no saddle anesthesia Extremity: COMMON NORMALS: normal to inspection and full ROM Neuro: COMMON NORMALS: patient oriented x3, moves all extremities and no focal motor deficits Psych: COMMON NORMALS: mental status grossly normal, Normal thought process present and cooperative THOUGHT PROCESS: Normal thought process present Skin: COMMON NORMALS: no rashes or lesions noted and no wounds GENERAL SKIN EXAM: no rashes or lesions noted Course Vital Signs: Vital signs: Vital Signs Temperature 98.0 F 05/12/23 21:40 Pulse Rate 99 05/13/23 00:31 Respiratory Rate 16 05/13/23 00:31 Blood Pressure 134/74 05/13/23 00:31 Pulse Oximetry 99 05/13/23 00:31 Oxygen Delivery Me thod Room Air 05/13/23 00:31 MDM - Back Pain/Injury Medical Decision Making Patient presents with back pain likely skeletal nature her CT scan and blood work are all normal she feels much improved here we will prescribe her pain meds along with nausea medicine for home she is to follow-up with spine surgeon and return if worsening Medical Records I reviewed the patient's medical records. Labs I reviewed the patient's lab results. 05/12/23 22:37 05/12/23 22:37 Radiology Impressions Abdomen/Pelvis CT 05/12/23 23:16 IMPRESSION: 1. No small bowel obstruction, abscess or free air. 2. No hydronephrosis. 3. Postop and other chronic findings above. Fecal filled colon. Laboratory Results WBC 10.1 10^3/uL (4.0-10.0) H 05/12/23 22:37 RBC 4.32 10^6/uL (4.1-5.3) 05/12/23 22:37 Hgb 12.7 g/dL (11.5-15.3) 05/12/23 22:37 Hct 38.6 % (37.0-47.0) 05/12/23 22:37 MCV 89.4 fl (81-99) 05/12/23 22:37 MCH 29.4 pg (28.0-34.0) 05/12/23 22:37 MCHC 32.9 g/dL (30.0-36.0) 05/12/23 22:37 RDW 12.5 % (12.1-15.1) 05/12/23 22:37 Plt Count 346 10^3/cmm (130-400) 05/12/23 22:37 MPV 9.5 fL (7.4-10.4) 05/12/23 22:37 Neut % (Auto) 63.9 % 05/12/23 22:37 Lymph % (Auto) 24.6 % 05/12/23 22:37 Pinal % (Auto) 6.7 % 05/12/23 22:37 Eos % (Auto) 3.9 % 05/12/23 22:37 Baso % (Auto) 0.5 % 05/12/23 22:37 Neut # (Auto) 6.44 10^3/uL (1.8-7.7) 05/12/23 22:37 Lymph # (Auto) 2.5 10^3/uL (0.8-4.8) 05/12/23 22:37 Pinal # (Auto) 0.7 10^3/uL (0.2-0.9) 05/12/23 22:37 Eos # (Auto) 0.4 10^3/uL (0.0-0.8) 05/12/23 22:37 Baso # (Auto) 0.1 10^3/uL (0.0-0.1) 05/12/23 22:37 Nucleated RBC % (auto) 0 % 05/12/23 22:37 Nucleated RBCs # 0.0 /100WBC 05/12/23 22:37 Sodium 135 mmol/L (136-145) L 05/12/23 22:37 Potassium 4.0 mmol/L (3.5-5.1) 05/12/23 22:37 Chloride 96 mmol/L (98-107) L 05/12/23 22:37 Carbon Dioxide 28 mmol/L (22-29) 05/12/23 22:37 Anion Gap 15.0 (5-19) 05/12/23 22:37 BUN 13 mg/dL (8-23) 05/12/23 22:37 Creatinine 0.8 mg/dL (0.5-0.9) 05/12/23 22:37 GFR Calculation 71.1 mL/min (90-130) L 05/12/23 22:37 Glucose 174 mg/dL (65-115) H 05/12/23 22:37 Calculated Osmolality 284 mOsm/kg (285-295) L 05/12/23 22:37 Calcium 9.4 mg/dL (8.5-10.5) 05/12/23 22:37 Total Bilirubin 0.2 mg/dL (0.15-1.2) 05/12/23 22:37 AST 25 U/L (0-32) 05/12/23 22:37 ALT 35 U/L (0-33) H 05/12/23 22:37 Alkaline Phosphatase 92 U/L (35-105) 05/12/23 22:37 Total Protein 7.6 g/dL (6.6-8.7) 05/12/23 22:37 Albumin 4.2 g/dL (3.5-5.2) 05/12/23 22:37 Globulin 3.4 g/dL (1.3-4.6) 05/12/23 22:37 Lipase 17 U/L (13-60) 05/12/23 22:37 Urine Color Colorless (Yellow) 05/13/23 00:20 Urine Appearance Clear (CLEAR) 05/13/23 00:20 Urine pH 6.5 (5-7) 05/13/23 00:20 Ur Specific Hurst 1.010 (1.005-1.030) 05/13/23 00:20 Urine Protein Neg (Negative) 05/13/23 00:20 Urine Glucose (UA) Norm (Normal) 05/13/23 00:20 Urine Ketones Negative (Negative) 05/13/23 00:20 Urine Blood Neg (Negative) 05/13/23 00:20 Urine Nitrate Negative (Negative) 05/13/23 00:20 Urine Bilirubin Neg (Negative) 05/13/23 00:20 Urine Urobilinogen Norm mg/dL (Negative) 05/13/23 00:20 Ur Leukocyte Esterase 1+ (Negative) H 05/13/23 00:20 Urine RBC None /hpf (0-2) 05/13/23 00:20 Urine WBC 5-10 /hpf (0-5) H 05/13/23 00:20 Ur Squamous Epith Cells None /hpf (0-5) 05/13/23 00:20 Amorphous Sediment Not Reportable 05/13/23 00:20 Urine Bacteria Trace /hpf (NONE) 05/13/23 00:20 Discharge Plan Discharge Patient Disposition: Home Clinical Impression: Low back pain Condition: Stable Prescriptions: New methocarbamol 750 mg tablet 750 mg PO Q6H PRN (Reason: spasms) Qty: 20 0RF Reglan 10 mg tablet 10 mg PO Q6H PRN (Reason: nausea and vomiting) Qty: 20 0RF oxycodone 5 mg tablet 5 mg PO Q8H PRN (Reason: pain) Qty: 20 0RF No Action dicyclomine 10 mg capsule 10 mg PO TID promethazine 25 mg tablet 25 mg PO BID PRN Zyrtec 10 mg capsule 10 mg PO DAILY metoprolol succinate 25 mg tablet extended release 24 hr 25 mg PO BID levothyroxine 150 mcg capsule 200 mcg PO DAILY cholestyramine (with sugar) 4 gram powder 4 gm PO DAILY Prempro 0.3-1.5 mg tablet 1 tab PO .every other day metformin 1,000 mg tablet 1,000 mg PO BID pantoprazole [Protonix] 20 mg tablet,delayed release (DR/EC) 40 mg PO QDAY lisinopril-hydrochlorothiazide 20-12.5 mg tablet 1 tab PO DAILY glyburide 5 mg tablet 5 mg PO BID Paxlovid (EUA) 150 mg x 2- 100 mg tablet See Rx Instructions .ROUTE .COMPLEX Qty: 30 0RF Rx Instructions: take TWO 150 mg tablets of nirmatrelvir with ONE 100 mg tablet of ritonavir twice daily for 5 days tramadol 50 mg tablet 50 mg PO Q6H PRN (Reason: pain (scale score 7-10)) Qty: 12 0RF ondansetron HCl 4 mg tablet 4 mg PO Q8H PRN (Reason: nausea and vomiting) Qty: 12 0RF Discharge Orders: Discharge ED (Routine); Ordered 05/13/23 Ordered By: Bradley Cool Referrals: Elliot Zuniga DO [Physician] - 1-3 days Neel Harris MD [Primary Care Provider] - Discharge Diet: Advance as tolerated Discharge Activity: Resume usual activity Patient Instructions: Back Pain (ED), Opioid Safety Coding Level of Care Code ED [employer] Developer for Jaime Glass
[2023-05-13 00:26] VITALS: RESP 16
[2023-05-13] MEDS: morphine 4 mg/mL SDV 1 mL IVP (00:26)
[2023-05-13 00:31] VITALS: BP 134/74; PULSE 99; RESP 16; O2SAT 99
[2023-05-13 00:37] LABS: Add Urine Microscopic? YES; Bilirubin Urine Neg (Negative); Blood Urine Neg (Negative); Glucose Urine UA Norm (Normal); Ketones Urine Negative (Negative); Leukocyte Esterase Urine 1+ (Negative); Nitrate Urine Negative (Negative); Protein Urine Neg (Negative); Urine Appearance Clear (CLEAR); Urine Color Colorless (Yellow); Urobilinogen Urine Norm (Negative); pH Urine 6.5 (5-7)
[2023-05-13 00:40] LABS: Bacteria Urine TRACE /hpf
[2023-05-13 01:21] VITALS: BP 151/82; PULSE 91; RESP 16; O2SAT 96
--- NOTE | 2023-05-14 14:41 | DCPLANNER ---
Addendum entered by Alicia Stevens 05/15/23 15:32: Patient had a follow up appointment scheduled for 05.15.23 at ortho - patient did attend appointment. Original Note: junior account manager had message to schedule a follow up appointment for patient with ortho. junior account manager sent patients information to the front office staff at ortho. Patients information will be printed and reviewed. Clinic will call patient with appointment information.
== END 2023-05-13 01:21 | disposition home or self-care (01) ==
PROVIDERS: Emergency Provider Emergency Medicine; PCP Family Medicine
DX: M54.50 Low back pain, unspecified (principal); Z79.84 Long term (current) use of oral hypoglycemic drugs; E11.9 Type 2 diabetes mellitus without complications; I10 Essential (primary) hypertension
CPT/HCPCS: 36415; 74177; 80053; 81001; 83690; 85025; 96374; 96375; 96376; 99285; J1200; J2270; J2765; Q9967

== ENCOUNTER → 2023-05-15 13:53 | Outpatient (BNVA) | payer MEDICARE, OTHER, SELFPAY | PROVIDERS: PCP Family Medicine; Referring Provider Emergency Medicine; Visit Provider Physician Assistant | DX: M51.36 Other intervertebral disc degeneration, lumbar region (principal); E11.9 Type 2 diabetes mellitus without complications; Z79.84 Long term (current) use of oral hypoglycemic drugs; F40.240 Claustrophobia; Z98.1 Arthrodesis status | CPT/HCPCS: 72110; 99203 ==

== ENCOUNTER 2023-05-24 15:49 | Outpatient (CLI) | payer MEDICARE, OTHER, SELFPAY ==
--- NOTE | 2023-05-24 16:00 | MR_ITS ---
WS: [id number] MRI LUMBAR SPINE NONCONTRAST TECHNIQUE: Sagittal T1, T2 and STIR imaging. Axial T1 and T2 imaging. CLINICAL INFORMATION: back pain, prior lumbar fusion COMPARISON: MRI 2014 FINDINGS: Mild lumbar curve. No acute compression. Mild disc bulging L2-L3. Postoperative changes pedicle screw fixation L3-L5 with interbody fusion grafts. L3 pedicle screw fixation is new compared to previous. L1-L2: Mild annular bulging. Moderate facet arthropathy. Spinal canal and foramen are patent. L2-L3: Mild annular bulging. Moderate facet arthropathy. Moderate central canal stenosis appears slig htly progressed compared to previous with narrowing of the RIGHT greater than LEFT subarticular reces s. Moderate facet arthropathy ligamentum flavum hypertrophy. Tiny LEFT annular fissure. Mild LEFT gre ater than RIGHT foraminal narrowing. L3-L4: Postoperative changes pedicle screw fixation with interbody fusion. Mild LEFT and no significa nt RIGHT foraminal narrowing. Slight narrowing of the LEFT subarticular recess. Moderate facet arthro brent. L4-L5: Pedicle screw fixation with interbody fusion graft. Mild central canal stenosis with narrowing of the subarticular recess. Moderate facet arthropathy. Mild RIGHT foraminal narrowing. LEFT foramen is patent. L5-S1: Mild annular bulging. Spinal canal and foramen are patent. Moderate facet arthropathy. Slight narrowing of the LEFT subarticular recess. Visualized pelvic bony structures: Normal. Paravertebral soft tissues: Normal. MR/MR lumbar spine wo con* [id number] IMPRESSION: 1. Pedicle screw fixation L3-L4 with interbody fusion graft is new compared to previous. 2. Central disc protrusion L2-L3 with moderate central canal stenosis slightly progressed compared to previous with impingement on the RIGHT greater than LEF T subarticular recess. Mild bilateral foraminal narrowing at this level with a small LEFT annular fissure. 3. Mild central canal stenosis L4-L5 with narrowing of the subarticular recess is unchanged. Mild RIGHT L4-L5 foraminal narrowing. 4. Slight narrowing of the LEFT L5-S1 subarticular recess. 5. Moderate facet arthropathy L2-L5.
== END 2023-05-24 15:50 | disposition home or self-care (01) ==
PROVIDERS: PCP Family Medicine; Visit Provider Physician Assistant
DX: M51.26 Other intervertebral disc displacement, lumbar region (principal); Z98.1 Arthrodesis status; M48.061 Spinal stenosis, lumbar region without neurogenic claudication; M47.816 Spondylosis without myelopathy or radiculopathy, lumbar region
CPT/HCPCS: 72148

== ENCOUNTER → 2023-06-06 08:43 | Outpatient (BNVA) | payer MEDICARE, OTHER, SELFPAY | PROVIDERS: PCP Family Medicine; Visit Provider Physician Assistant | DX: M47.816 Spondylosis without myelopathy or radiculopathy, lumbar region; M47.818 Spondylosis without myelopathy or radiculopathy, sacral and sacrococcygeal region; M76.9 Unspecified enthesopathy, lower limb, excluding foot; Z98.1 Arthrodesis status | CPT/HCPCS: 73502; 99214 ==

== ENCOUNTER 2023-06-19 10:23 | Outpatient (RCR) | payer MEDICARE, OTHER, SELFPAY | END 2023-06-20 23:59 | disposition home or self-care (01) | LOC: SPT 10:23 | PROVIDERS: PCP Family Medicine; Visit Provider Physician Assistant | DX: M54.9 Dorsalgia, unspecified (principal) | CPT/HCPCS: 97110; 97161 ==

== ENCOUNTER 2023-06-21 06:00 | Outpatient (RCR) | payer MEDICARE, OTHER, SELFPAY | END 2023-07-20 23:59 | disposition home or self-care (01) | LOC: SPT 06:00 | PROVIDERS: PCP Family Medicine; Visit Provider Physician Assistant | DX: M54.9 Dorsalgia, unspecified (principal) | CPT/HCPCS: 97110; G0283 ==

== ENCOUNTER → 2023-07-16 09:26 | Outpatient (BNVA) | payer MEDICARE, OTHER, SELFPAY | PROVIDERS: PCP Family Medicine; Visit Provider Anesthesiology Pain Medicine | DX: M47.818 Spondylosis without myelopathy or radiculopathy, sacral and sacrococcygeal region; M47.816 Spondylosis without myelopathy or radiculopathy, lumbar region; M51.36 Other intervertebral disc degeneration, lumbar region; Z98.1 Arthrodesis status | CPT/HCPCS: 99205 ==

== ENCOUNTER 2023-07-21 06:00 | Outpatient (RCR) | payer MEDICARE, OTHER, SELFPAY | END 2023-08-20 23:59 | disposition home or self-care (01) | LOC: SPT 06:00 | PROVIDERS: PCP Family Medicine; Visit Provider Physician Assistant | DX: M54.9 Dorsalgia, unspecified (principal) | CPT/HCPCS: 97110 ==

== ENCOUNTER → 2023-07-24 13:51 | Outpatient (BNVA) | payer MEDICARE, OTHER, SELFPAY | PROVIDERS: PCP Family Medicine; Visit Provider Anesthesiology Pain Medicine | DX: M16.11 Unilateral primary osteoarthritis, right hip (principal) | CPT/HCPCS: 20610; 77002; J1030; J3490 ==

== ENCOUNTER 2023-07-31 15:48 | Emergency (ER) | payer MEDICARE, OTHER, SELFPAY ==
[2023-07-31 16:10] VITALS: BP 157/89; PULSE 111; RESP 16; TEMP 37.1; O2SAT 98; BMI 34.1
--- NOTE | 2023-07-31 16:49 | W.ED.EXTPRO ---
HPI - Extremity Problem General: Chief complaint: Extremity Problem,Nontraumatic Stated complaint: puking when she stands Time Seen by Provider: 07/31/23 16:39 History of Present Illness: 68-year-old female presents with chronic hip pain. Is been a longstanding issue. She has no new injury. Patient was seen by pain specialist and received injections on 07/24/2023. Patient reports that she is continue to have pain. Patient presents to the ER because she is wanting something for pain. Review of Systems Musc: Reports: other (Please see HPI) PFSH ED PFSH: Medical History Diabetes Hypertension Hypothyroidism Post-menopause on HRT (hormone replacement therapy) Well woman exam with routine gynecological exam Surgical History S/P arthroscopy of right shoulder 07/2007 S/P bilateral oophorectomy unknown date LSO S/P cataract extraction 2004, bilateral S/P cervical spinal fusion 06/2007 S/P cholecystectomy S/P dilatation and curettage 2001, 2011, 2016 S/P left rotator cuff repair S/P spinal fusion 07/2010 Status post hip surgery 2019- right hip abductor repair, Dr. Rodrigez Status post hysteroscopic polypectomy 10/16/2017- Performed by Dr. Reeves at [facility] in [place], [place]. Family History Grandmother Diabetes maternal Daughter No problems noted. Brother Diabetes Heart disease Hyperlipidemia Father Heart disease Hyperlipidemia Hypertension Sister Breast cancer age onset unknown Colon cancer age onset unknown Denies family history of Ovarian cancer Clotting disorder Anesthesia complication Bleeding disorder Uterine cancer Thyroid disease Stroke Social History Smoking and tobacco/nicotine status: never used tobacco/nicotine Alcohol intake: never Substance/Drug Use: never Physical Exam Const: COMMON NORMALS: patient oriented x3 and alert Resp: COMMON NORMALS: normal respiratory effort and No use of accessory muscles Cardio: COMMON NORMALS: regular rate and regular rhythm RATE: regular rate RHYTHM: regular rhythm Neuro: COMMON NORMALS: patient oriented x3 and moves all extremities SENSORIUM/ORIENTATION: Yes alert Psych: COMMON NORMALS: mental status grossly normal and Normal thought process present THOUGHT PROCESS: Normal thought process present Course Vital Signs: Vital signs: Vital Signs Temperature 98.8 F 07/31/23 16:10 Pulse Rate 111 H 07/31/23 16:10 Respiratory Rate 16 07/31/23 16:10 Blood Pressure 157/89 07/31/23 16:10 Pulse Oximetry 98 07/31/23 16:10 Oxygen Delivery Me thod Room Air 07/31/23 16:10 MDM - Extremity (Nontraumatic) Medical Decision Making Patient with chronic hip and back pain. Is been a longstanding issue. She has had 2 MRIs that were reviewed. She was just seen on 07/24/2023 and establish care with pain management which I reviewed those notes. I had a long discussion with patient that I will not be providing her any pain medication as that will need to come from either her pain specialist or her primary care provider. Patient is allergic to tramadol, NSAIDs and Tylenol. Patient was offered muscle relaxant and Zofran as she reports she has nausea. Patient refuses Zofran stating it does not work Medical Records I reviewed the patient's medical records. 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, Chronic pain Condition: Stable Prescriptions: No Action dicyclomine 10 mg capsule 10 mg PO TID promethazine 25 mg tablet 25 mg PO BID PRN Zyrtec 10 mg capsule 10 mg PO DAILY metoprolol succinate 25 mg tablet extended release 24 hr 25 mg PO BID levothyroxine 150 mcg capsule 200 mcg PO DAILY metformin 1,000 mg tablet 1,000 mg PO BID pantoprazole [Protonix] 20 mg tablet,delayed release (DR/EC) 40 mg PO QDAY lisinopril-hydrochlorothiazide 20-12.5 mg tablet 1 tab PO DAILY glyburide 5 mg tablet 5 mg PO BID Discharge Orders: Discharge ED (Routine); Ordered 07/31/23 Ordered By: Roman Allison Referrals: Neel Harris MD [Primary Care Provider] - Discharge Diet: Usual diet Discharge Activity: Increase activity as tolerated Patient Instructions: Chronic Pain (ED), Opioid Safety, Pain Management Activity Restrictions/Additional Instructions: You will need to follow-up with your primary care provider or your pain specialist for pain and management of your chronic pain. You may also consider alternatives such as acupuncture, massage. Coding Level of Care Code ED Otolaryngology Surgeon for Jaime Glass
[2023-07-31] MEDS: orphenadrine 30 mg/mL Inj 2 mL 60 MG IM (17:16)
== END 2023-07-31 17:29 | disposition home or self-care (01) ==
PROVIDERS: Emergency Provider Student in an Organized Health Care Education/Training Program; PCP Family Medicine
DX: M47.896 Other spondylosis, lumbar region (principal); M46.1 Sacroiliitis, not elsewhere classified; G89.29 Other chronic pain; Z79.84 Long term (current) use of oral hypoglycemic drugs; E11.9 Type 2 diabetes mellitus without complications; I10 Essential (primary) hypertension
CPT/HCPCS: 96372; 99284; J2360

== ENCOUNTER → 2023-08-05 13:49 | Outpatient (BNVA) | payer MEDICARE, OTHER, SELFPAY | PROVIDERS: PCP Family Medicine; Visit Provider Anesthesiology Pain Medicine | DX: M47.818 Spondylosis without myelopathy or radiculopathy, sacral and sacrococcygeal region; M47.816 Spondylosis without myelopathy or radiculopathy, lumbar region; M51.36 Other intervertebral disc degeneration, lumbar region; Z98.1 Arthrodesis status; M25.551 Pain in right hip | CPT/HCPCS: 99215 ==

== ENCOUNTER 2023-09-03 09:56 | Outpatient (CLI) | payer MEDICARE, OTHER, SELFPAY ==
--- NOTE | 2023-09-03 | MR_ITS ---
WS: [id number] MRI RIGHT HIP WITHOUT CONTRAST. COMPARISON: Prior MRI hip 07/23/2018 and radiographs 06/06/2023 Multiplanar, multisequence imaging is performed without contrast. Significant interval change in appearance of the RIGHT hip since the prior MRI from 2018. There is ma rked increased T2 signal surrounding the hip with synovial thickening. Loss of the normal joint space and a small amount of fluid. The predominant finding of the increased T2 signal does appear to be sy novial hypertrophy with a small amount of fluid. The RIGHT hip is being encased by increased T2 signa l which also extends into the muscles surrounding the hip and over the RIGHT ilium. RIGHT hip joint is narrowed. There is a small amount of marrow edema in the inferior medial femoral h ead. Mild circumferential osteophytic ridging. Loss of the normal cartilage. No collapse of the femor al head. Additional marrow edema in the far lateral RIGHT acetabulum. A normal-appearing labrum is no t identified. Mild narrowing of the LEFT hip joint but no synovitis or soft tissue inflammatory process. IMPRESSION: 1. Markedly abnormal appearance of the RIGHT hip and RIGHT hip joint and surrounding muscles. Marked inflammatory changes involving the joint capsule with synovitis, marrow edema in the medial femoral h ead and the acetabulum and soft tissue muscle edema. Differential includes inflammatory or infectious synovitis. Septic joint needs to be excluded. 2. At this time no evidence for osteonecrosis.
== END 2023-09-03 09:57 | disposition home or self-care (01) ==
LOC: RAD 09:57
PROVIDERS: PCP Family Medicine; Visit Provider Anesthesiology Pain Medicine
DX: M25.551 Pain in right hip (principal); R93.7 Abnormal findings on diagnostic imaging of other parts of musculoskeletal system; M25.451 Effusion, right hip; M16.11 Unilateral primary osteoarthritis, right hip; Z98.1 Arthrodesis status
CPT/HCPCS: 72100; 73721; 99214

== ENCOUNTER 2023-09-04 11:00 | Outpatient (CLI) | payer MEDICARE, OTHER, SELFPAY ==
[2023-09-04 12:00] LABS: Basophils % 0.5 %; Eosinophils # 0.4 10^3/uL (0.0-0.8); Eosinophils % 5.7 %; Hematocrit 36.7 % (36-47); Lymphocytes # 1.7 10^3/uL (0.8-4.8); Lymphocytes % 23.2 %; Mean Corpuscular HGB Conc 33.2 g/dL (30-55); Mean Corpuscular Volume 90.4 fl (85-98); Mean Platelet Volume 9.1 fL (7.4-10.4); Monocytes # 0.6 10^3/uL (0.2-0.9); Monocytes % 7.5 %; Neutrophils # 4.71 10^3/uL (1.8-7.7); Neutrophils % 62.7 %; Nucleated Red Blood Cells % 0 %; Platelet Count 423 10^3/cmm (157-399); Red Blood Count 4.06 10^6/uL (3.85-5.65); Red Cell Distribution Width 12.2 % (12.1-15.1); White Blood Count 7.51 10^3/uL (3.29-11.43)
[2023-09-04 12:18] LABS: Erythrocyte Sedimentation Rate 35 mm/hr (0-15)
[2023-09-04 12:30] LABS: Procalcitonin 0.05 ng/mL (0-0.5)
[2023-09-04 12:40] LABS: C Reactive Protein 20.4 mg/L (0.0-4.9)
== END 2023-09-04 11:01 | disposition home or self-care (01) ==
PROVIDERS: PCP Family Medicine; Visit Provider Anesthesiology Pain Medicine
DX: M19.90 Unspecified osteoarthritis, unspecified site (principal)
CPT/HCPCS: 36415; 84145; 85025; 85651; 86140

== ENCOUNTER → 2023-09-05 10:26 | Outpatient (BNVA) | payer MEDICARE, OTHER, SELFPAY | PROVIDERS: PCP Family Medicine; Visit Provider Anesthesiology Pain Medicine | DX: M47.818 Spondylosis without myelopathy or radiculopathy, sacral and sacrococcygeal region; M47.816 Spondylosis without myelopathy or radiculopathy, lumbar region; M51.36 Other intervertebral disc degeneration, lumbar region; Z98.1 Arthrodesis status; M25.551 Pain in right hip | CPT/HCPCS: 99215 ==

== ENCOUNTER → 2023-09-16 14:42 | Outpatient (BNVA) | payer MEDICARE, OTHER, SELFPAY | PROVIDERS: PCP Family Medicine; Visit Provider Anesthesiology Pain Medicine | DX: M16.11 Unilateral primary osteoarthritis, right hip (principal) | CPT/HCPCS: 20610; 77002; 80503; 87070; 87075; 87205; 89050; J3490 ==

== ENCOUNTER → 2023-10-01 09:44 | Outpatient (BNVA) | payer MEDICARE, OTHER, SELFPAY | PROVIDERS: PCP Family Medicine; Visit Provider Anesthesiology Pain Medicine | DX: M47.818 Spondylosis without myelopathy or radiculopathy, sacral and sacrococcygeal region; M47.816 Spondylosis without myelopathy or radiculopathy, lumbar region; M51.36 Other intervertebral disc degeneration, lumbar region; Z98.1 Arthrodesis status; M25.551 Pain in right hip | CPT/HCPCS: 99215 ==

== ENCOUNTER → 2023-10-02 12:42 | Outpatient (BNVA) | payer MEDICARE, OTHER, SELFPAY | PROVIDERS: PCP Family Medicine; Referring Provider Anesthesiology Pain Medicine; Visit Provider Nurse Practitioner | DX: M16.11 Unilateral primary osteoarthritis, right hip; M70.61 Trochanteric bursitis, right hip; M51.36 Other intervertebral disc degeneration, lumbar region; M47.818 Spondylosis without myelopathy or radiculopathy, sacral and sacrococcygeal region | CPT/HCPCS: 73502; 99215 ==

== ENCOUNTER → 2023-10-06 11:46 | Outpatient (BNVA) | payer MEDICARE, OTHER, SELFPAY | PROVIDERS: PCP Family Medicine; Visit Provider Emergency Medicine | DX: R11.10 Vomiting, unspecified (principal); G89.29 Other chronic pain; R10.2 Pelvic and perineal pain; N10 Acute pyelonephritis; K52.9 Noninfective gastroenteritis and colitis, unspecified | CPT/HCPCS: 81000; 87077; 87086; 87184 ==

== ENCOUNTER 2023-10-30 10:37 | Outpatient (RCR) | payer MEDICARE, OTHER, SELFPAY | END 2023-11-20 23:59 | disposition home or self-care (01) | LOC: SPT 10:37 | PROVIDERS: Visit Provider Nurse Practitioner | DX: M54.42 Lumbago with sciatica, left side (principal); M54.41 Lumbago with sciatica, right side | CPT/HCPCS: 97110; 97161 ==

== ENCOUNTER 2023-11-21 06:00 | Outpatient (RCR) | payer MEDICARE, OTHER, SELFPAY | END 2023-12-19 23:59 | disposition home or self-care (01) | LOC: SPT 06:00 | PROVIDERS: PCP Family Medicine; Visit Provider Nurse Practitioner | DX: M25.562 Pain in left knee (principal); M54.50 Low back pain, unspecified; M54.32 Sciatica, left side; M54.31 Sciatica, right side | CPT/HCPCS: 97110 ==

== ENCOUNTER → 2023-12-02 09:46 | Outpatient (BNVA) | payer MEDICARE, OTHER, SELFPAY | PROVIDERS: PCP Family Medicine; Visit Provider Nurse Practitioner | DX: M17.12 Unilateral primary osteoarthritis, left knee | CPT/HCPCS: 73560; 73565; 99214 ==

== ENCOUNTER 2023-12-20 06:00 | Outpatient (RCR) | payer MEDICARE, OTHER, SELFPAY | END 2024-01-19 23:59 | disposition home or self-care (01) | LOC: SPT 06:00 | PROVIDERS: PCP Family Medicine; Visit Provider Nurse Practitioner | DX: M54.42 Lumbago with sciatica, left side (principal); M54.41 Lumbago with sciatica, right side; M17.12 Unilateral primary osteoarthritis, left knee | CPT/HCPCS: 97110 ==

== ENCOUNTER 2024-01-20 06:00 | Outpatient (RCR) | payer MEDICARE, OTHER, SELFPAY | END 2024-02-18 23:59 | disposition home or self-care (01) | LOC: SPT 06:00 | PROVIDERS: PCP Family Medicine; Visit Provider Nurse Practitioner | DX: M17.12 Unilateral primary osteoarthritis, left knee (principal); M54.89 Other dorsalgia; M25.562 Pain in left knee | CPT/HCPCS: 99213 ==

== ENCOUNTER 2024-03-04 10:09 | Outpatient (CLI) | payer MEDICARE, OTHER, SELFPAY ==
--- NOTE | 2024-03-04 10:14 | MM_ITS ---
WS: [id number] SCREENING DIGITAL BREAST TOMOSYNTHESIS MAMMOGRAM WITH CAD HISTORY: SCREENING COMPARISON: 02/13/2023, 10/04/2021 and 05/27/2019, 07/08/2020 Bilateral CC and MLO with tomosynthesis and synthetic mammography submitted. Computer aided detection analyzed. Breast composition: The breasts are heterogeneously dense, which may obscure small masses. There is a new asymmetry measuring 15 mm in the anterior lateral LEFT breast seen only on the CC projection. Th is will need further evaluation. The remaining asymmetries and calcifications are stable. MM/[place] [id number] IMPRESSION: BI-RADS: 0-Incomplete: Need additional imaging evaluation FOLLOW UP: Need Additional Imaging LEFT breast: Spot compression views (CC and MLO). True ML. Ultrasound to follow if abnormality persists.
== END 2024-03-04 10:10 | disposition home or self-care (01) ==
LOC: RAD 10:09
PROVIDERS: PCP Family Medicine; Visit Provider Family Medicine
DX: Z12.31 Encounter for screening mammogram for malignant neoplasm of breast (principal); R92.333 Mammographic heterogeneous density, bilateral breasts; N64.89 Other specified disorders of breast
CPT/HCPCS: 77063; 77067

== ENCOUNTER 2024-03-23 09:12 | Outpatient (CLI) | payer MEDICARE, OTHER, SELFPAY ==
--- NOTE | 2024-03-23 09:19 | MM_ITS ---
WS: [id number] ADDITIONAL VIEWS LEFT MAMMOGRAM WITH DIGITAL BREAST TOMOSYNTHESIS. HISTORY: ABNORMAL MAMMOGRAM COMPARISON: 10/04/2021, 03/04/2024, 08/12/2020 Spot compression views LEFT breast in CC, MLO projections and true ML submitted with digital breast t omosynthesis and SM. Asymmetry noted in the lateral LEFT breast resolves with additional imaging. Now the soft tissue is v stefani similar to studies from 2020. No persistent mass or asymmetry. MM/[place] [id number] IMPRESSION: BI-RADS: 2-Benign FOLLOW UP: 1 Year Follow-up Return to annual screening mammography.
== END 2024-03-23 09:13 | disposition home or self-care (01) ==
LOC: RAD 09:13
PROVIDERS: PCP Family Medicine; Visit Provider Family Medicine
DX: R92.8 Other abnormal and inconclusive findings on diagnostic imaging of breast (principal); Z12.31 Encounter for screening mammogram for malignant neoplasm of breast
CPT/HCPCS: 77061; G0279

== ENCOUNTER 2024-10-09 13:37 | Outpatient (CLI) | payer MEDICARE, OTHER, SELFPAY ==
--- NOTE | 2024-10-09 13:39 | CT_ITS ---
WS: [id number] CTA THORACIC AORTA WITH AND WITHOUT CONTRAST HISTORY: ABNORMAL CT TECHNIQUE: CTA imaging of the thorax is performed with and without contrast. After noncontrast imagin g is performed, CT angiogram is performed during injection of Omnipaque 350; 100 mL IV.. Sagittal and coronal reconstructions, sagittal and coronal MIP imaging is submitted. All CT scans at [facility] use at least one of these dose optimization techniques: automated exposure control; mA and/or kV adjustment per patient size (includes targeted exams where dose is matched to clinical indication) ; or iterative reconstruction. DLP: 788.76 mGy.cm COMPARISON: 09/04/2008 Pre and postcontrast imaging of the thoracic aorta. Normal size thoracic aorta. Ascending diameter of 3.1 cm. Normal descending diameter of 2.2 cm. Normal great vessels. No obstructing plaque or stenosi s. Mildly dilated pulmonary artery. No filling defects in the proximal pulmonary arteries. Heart is n ormal size. No pericardial or pleural effusions. Interstitial lung disease. Peripheral fibrosis in the upper and lower lung almanzar. Benign granuloma R IGHT lower lobe. Honeycombing at the lung bases and bronchiectasis. Mediastinal and hilar lymph nodes are enlarged. Largest RIGHT lymph node is 1.6 cm at the RIGHT hilum. Largest in the LEFT lymph node is adjacent to the LEFT pulmonary artery measuring 2.1 cm. Normal adrenal glands. Visualized liver is normal. CT/CT angio chest [id number] IMPRESSION: 1. Normal thoracic aorta. No aneurysm or dissection. 2. Mild enlarged pulmonary artery. 3. No pneumonia. 4. Changes of UIP. Pulmonary fibrosis with honeycombing and bronchiectasis. 5. Bilateral hilar lymphadenopathy. Lymph nodes have increased in size since 2 008. This may be reactive process based on interstitial lung disease. Recommend additional evaluation and follow-up of the mediastinal adenopathy.
[2024-10-09] MEDS: iohexol 350 mg/mL 500 mL Btl (per mL) IV (15:55)
== END 2024-10-09 13:38 | disposition home or self-care (01) ==
LOC: RAD 13:38
PROVIDERS: PCP Family Medicine; Visit Provider Family Medicine
DX: J84.10 Pulmonary fibrosis, unspecified (principal); J47.9 Bronchiectasis, uncomplicated; R93.89 Abnormal findings on diagnostic imaging of other specified body structures
CPT/HCPCS: 71275

== ENCOUNTER → 2025-03-25 15:57 | Outpatient (BNVA) | payer MEDICARE, OTHER, SELFPAY | PROVIDERS: PCP Family Medicine; Visit Provider Internal Medicine Cardiovascular Disease | DX: I25.10 Atherosclerotic heart disease of native coronary artery without angina pectoris (principal); E78.5 Hyperlipidemia, unspecified; D86.9 Sarcoidosis, unspecified; R94.31 Abnormal electrocardiogram [ECG] [EKG]; R06.02 Shortness of breath; R58 Hemorrhage, not elsewhere classified; R07.9 Chest pain, unspecified; I25.119 Atherosclerotic heart disease of native coronary artery with unspecified angina pectoris | CPT/HCPCS: 36415; 80048; 85025; 85610; 93005; 99204 ==

== ENCOUNTER 2025-03-31 09:42 | Outpatient (CLI) | payer MEDICARE, OTHER, SELFPAY ==
--- NOTE | 2025-03-31 | MM_ITS ---
WS: [id number] BILATERAL SCREENING DIGITAL TOMOSYNTHESIS MAMMOGRAM WITH CAD HISTORY: ANNUAL SCREENING COMPARISON: 03/23/2024, 03/04/2024, 02/13/2023 Bilateral CC and MLO views with tomosynthesis and synthetic mammography submitted. Computer aided detection analyzed. Breast composition: The breasts are heterogeneously dense, which may obscure small masses. No suspicious masses, microcalcifications or architectural distortion. Asymmetries and calcifications are stable. MM/MM scr tomosynthesis [id number] IMPRESSION: BI-RADS: 2 - Benign. FOLLOW UP: 1 Year Follow-up
== END 2025-03-31 09:43 | disposition home or self-care (01) ==
LOC: RAD 09:43
PROVIDERS: PCP Family Medicine; Visit Provider Family Medicine
DX: Z12.31 Encounter for screening mammogram for malignant neoplasm of breast (principal); R92.333 Mammographic heterogeneous density, bilateral breasts; N64.89 Other specified disorders of breast; R92.1 Mammographic calcification found on diagnostic imaging of breast
CPT/HCPCS: 77063; 77067

== ENCOUNTER 2025-04-21 05:57 | Outpatient (CLI) | payer MEDICARE, OTHER, SELFPAY ==
[2025-04-21] VITALS (20 sets, daily range): BP systolic 115–181; BP diastolic 59–88; PULSE 67–83; RESP 15–26; TEMP 36.7; O2SAT 90–98; BMI 34.7
--- NOTE | 2025-04-21 06:00 | XACV_ITS ---
Exam Room: 2 Ht: 165 cm Wt: 95 kg BSA: 2.12 m2 Gender: Female : 1955 Any Known Allergies: Other Exam Priority: Routine Procedure(s): Procedure Description: Diagnostic procedure Procedure Description: Left Heart Catheterization Procedure Description: Right Heart Catheterization Procedure Description: Left ventriculography Procedure Description: O2 saturation Procedure Description: Coronary Angiography Ferny YOON; Diagnostic Cath Status: Elective Diagnostic Findings * Left Main has no disease. * Proximal Left Anterior Descending to Mid Left Anterior Descending: severe 90% stenosis, ROYAL: 3 flow. * Mid Right Coronary Artery: obstructive 70% stenosis, ROYAL: 3 flow. * Mid Circumflex: luminal irregularities 20% stenosis, ROYAL: 3 flow. * Ramus: severe 90% stenosis, ROYAL: 3 flow. * 1st Diagonal: severe 90% stenosis, ROYAL: 3 flow. * Coronary angiography shows right dominance. Conclusions 1. There is severe coronary artery disease with three vessel disease. 2. All albrecht are normal. 3. Normal left ventricular systolic function. Ejection fraction of 55%. 4. Right heart catheterizationPulmonary capillary wedge pressure 21 mmHg PA mean 32 mm RV 48/18 mmHg RA 12 mmHgNo intracardiac shunt by saturation notedCardiac output by Randy 6 L/min Cardiac index 3 L/min/[id number] moderate pulmonary hypertension. Recommendations * 1-Return toRecovery for usual post cath care 2-Patient has been referred for CABG as an outpatient 3-Add isosorbide mononitrate 4-Statin with LDL goal of 70 mg/dl, aspirin 81 mg p.o. daily for life long 5-Follow up with Dr. Isaacs in four weeks and establish care with primary care physician. Diagnostic RX Recommendation: CABG LV EDP: 13 mmHg Ventriculography Ejection Fraction: 55.0 % Pressures Phase:Rest AO : 139 / 79 ( 107 ) @ 9:14:00 AM 119 / 89 ( 104 ) @ 9:19:00 AM 141 / 71 ( 102 ) @ 9:27:00 AM 141 / 71 ( 102 ) @ 9:27:00 AM LV : 142 / -7 / 13 @ 9:26:00 AM 150 / -5 / 17 @ 9:27:00 AM 150 / -5 / 17 @ 9:27:00 AM RV : 49 / 6 / 13 @ 9:02:00 AM PA : 48 / 18 ( 32 ) @ 9:00:00 AM RA : a wave = 15 v wave = 14 mean = 12 @ 9:03:00 AM PCW : a wave = 23 v wave = 23 mean = 21 @ 9:01:00 AM O2 Content Phase:Rest PA : O2 Content O2: 73.9 @ 9:19:00 AM Saturations Phase:Rest AO : 93 @ 9:14:00 AM RA : 74 @ 9:27:00 AM RV : 73 @ 9:27:00 AM PA : 74 @ 9:19:00 AM Cardiac Output Phase:Rest Randy : 6 @ 8:34:32 AM Randy Cardiac Index: 3 @ 8:34:32 AM Flow Phase:Rest Qp : 6 @ 8:34:32 AM Qs : 6 @ 8:34:32 AM Valves Phase:DefaultPhase AV : 10.0 @ 8:34:32 AM AV Mean Gradient: 12.0 @ 8:34:32 AM AV Flow: 217 @ 8:34:32 AM AV Area: 1.4 @ 8:34:32 AM AV Area Index: 0.70 @ 8:34:32 AM Clinical Evaluation EBL: 5mL-10mL Procedural Details Procedure Consent Obtained. Pre-Procedure Time Out. Identified patient by full name and date of as verbalized by the patient/guarantor. Does the consent match the physician's order: Yes. Accurate & Complete Informed Consent: Yes. Inpatient/Outpatient History & Physical on Chart: Yes. If H&P is completed, is and addenduem needed: No. Visualize and Verify Site with Patient/Guarantor: N/A. Relevant Radiology Images available: Yes. The risks, benefits, and alternatives of sedation and/or procedure were discussed by physician. The patient agrees to continue. Procedure started. [facility] Clinical Fraility Score: 3: Managing Well. 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 Chest Pain Symptom Assessment: Typical Angina Symptoms. Cardiovascular Instability: No. Correct patient, site and procedure confirmed by cath team. PERRLA. Strong, equal hand program instructor bilaterally. Lungs clear x 5 lobes. IV Site on Arrival: 20 gauge in the right anticubital to be used for RHC. IV Site on Arrival: 20 gauge in the left anticubital. IV Fluids: 0.9% NaCl at KVO. 0 mL infused prior to warehouse laborer. Pre Procedural Pulses: bilateral dorsalis pedis was 2+. Pre Procedural Pulses: bilateral posterior tibial was 3+. Pre Procedural Pulses: bilateral radial was 1+. Patient on room air for RHC. right groin was prepped with chloroprep then draped in the usual sterile fashion. right radial was prepped with chloroprep then draped in the usual sterile fashion. right brachial was prepped with chloroprep then draped in the usual sterile fashion. Physician notified. Baseline sample Acquired. HR: 76 BPM. Patient's family in CPRU room #3. Dr. Isaacs will update at the completion of the procedure. Equipment: 6F - Radial. Cardiac Cath Pack. ACIST Manifold Kit Model BT 2000. Heparinized Saline (2 units/mL), 1000 mL bag. Brachial drape. 6 fr Terumo sheath x 2. Physician arrived. Physician scrubbed in. Immediate Pre-Procedure Time Out. Correct Patient: Yes; Correct Procedure: Yes; Correct Site: Yes; Correct Patient Position: Yes; Correct Supplies: Yes; Dried Flammable Prep: Yes; Blood Products Available: N/A;. Micropuncture wire in through the existing 20g PIV in the right brachial vein. 20g IV cath out over the micropuncure wire. Lidocaine 1% infiltrated to the right brachial. [place] MON catheter inserted. Oximetry samples were obtained. Normal venous range: 60-85%. Normal arterial range: 95-100%. Pressure measurements obtained. [place] out. Lidocaine 1% infiltrated to the right radial. Arterial access obtained. A 5 yi Srikanth catheter in over the exchange J wire. Respiratory therapy called to run sats. Oxygen started at 2liters/min via nasal canula. Multiple views taken of left coronary artery. Catheter redirected to the RCA. Multiple views taken of right coronary artery. Catheter removed over the exchange J wire. A 5 yi Angled Pig catheter in over the exchange J wire. EDP Sample taken: LV 142/-8,13; HR: 84 BPM; SpO2: 98%. LV gram performed in TIERNEY @ 10 mL/second for a total of 30 mL. EDP Sample taken: LV 150/-6,17; HR: 86 BPM; SpO2: 98%. Pullback taken: LV 150/-6,17; AO 141/71(102); Mean: 12mmHg, Peak to Peak: 10mmHg, SEP: 26sec/min; HR: 85 BPM; SpO2: 97%. Catheter removed over the exchange J wire. Physician scrubbed out. A Manual Compression was successful obtaining hemostatsis at the Right Brachial Vein insertion site. A TR Band was successful obtaining hemostatsis at the Right Radial artery insertion site. Post Procedure: Pulses reassessed and unchanged. PERRLA. Strong, equal hand program instructor bilaterally. No VTE prophylaxis required. Medication's Wasted: Lidocaine 1% = 10 mL. Medication's Wasted: Nitro = 49.8 mg. Medication's Wasted: Heparin = 1000 units. Medication's Wasted: Other = 25 mcg. Total IV fluids: 65 mL. Post-op diagnosis: Multivessel CAD/CABG consult. Complications: none. Estimated blood loss: 5mL-10mL. Responsiveness - Normal response to verbal stimuli; alert and oriented, PERRLA. Airway - Unaffected, no intervention required; spontaneous ventilation. Circulation: W/N/L, pulses unchanged. Nausea/Vomiting: No. Vital chart was stopped. Procedure completed. Patient transferred by bed to CPRU. Access Site Site: Right Brachial Vein Sheath Size: 6 Fr Hemostasis Method: Manual Compression Hemostasis Success: Successful Site: Right Radial artery Sheath Size: 6 Fr Hemostasis Method: TR Band Hemostasis Success: Successful Procedure Medications Start: 7:41 AM Stop: 7:41 AM Medication: Fentanyl Amount: 25 mcg Route: I.V. Start: 7:41 AM Stop: 7:41 AM Medication: Zofran (ondansetron) Amount: 4 mg Route: I.V. Start: 7:43 AM Stop: 7:43 AM Medication: Versed Amount: 1 mg Route: I.V. Start: 8:06 AM Stop: 8:06 AM Medication: Versed Amount: 1 mg Route: I.V. Start: 8:09 AM Stop: 8:09 AM Medication: Nitrogylcerin Amount: 200 mcg Route: I.A. Start: 8:12 AM Stop: 8:12 AM Medication: Heparin Amount: 5000 units Route: I.V. Start: 8:13 AM Stop: 8:13 AM Medication: Fentanyl Amount: 25 mcg Route: I.V. Start: 8:19 AM Stop: 8:19 AM Medication: Fentanyl Amount: 25 mcg Route: I.V. I, the attending physician, have reviewed and verified all procedure medications. Yes, all medications given per verbal order History/Risk Factors Hypertension: Yes Dyslipidemia: Yes Peripheral Arterial Disease (PAD): No Myocardial Infarction (VA): No Obesity: Yes Renal Disease: No Tobacco Use: Never Prior Interventions PCI: No CABG: No Valve Surgery: No Report Signatures Finalized by Kehinde Isaacs MD on 04/21/2025 10:35 AM
--- NOTE | 2025-04-21 07:43 | W.PM.OPSUD ---
Surgery/Procedure H&P Update DATE OF PROCEDURE: April 21, 2025 DATE H&P PERFORMED: 03/25/25 H&P UPDATE INFORMATION: I have reviewed H&P completed within last 30 days, I have examined patient prior to procedure and No changes to prior documentation PREOP DIAGNOSIS: Unexplained shortness of breath, possible sarcoidosis, abnormal coronary CT PLANNED PROCEDURE: Operation Date: 04/21/25 07:00 Proposed Procedures p Cardiac Catheterization - RLHC w/wo LV & Nedra(Bilateral) - Kehinde Isaacs MD PATIENT REASSESSED PRIOR TO SEDATION, WITH NO CHANGE NOTED: Yes PHYSICAL EXAM: alert, oriented x 3, clear to auscultation bilaterally, regular rate & rhythm and operative site marked AIRWAY EVAL/ANESTHESIA PLAN: ASA II, Risks, benefits & alternatives of sedation and/or procedure discussed and Patient agrees to continue as planned ADDITIONAL INFORMATION: Patient has been explained all risk-benefit and alternative for the procedure. She understand 2% risk of stroke major bleed. She understand 6% risk of minor bleeding oozing infection hematoma pseudoaneurysm urgent emergent vascular or bypass surgery. Patient understand 6% risk of contrast-induced nephropathy. Patient understood and would like to proceed with that.
[2025-04-21 08:18] LABS: Arterial Blood Gas Hematocrit 39.8 % (37-47); Blood Gas Operator Identificat CAK; Blood Gas Sample Type Not specified; Carboxyhemoglobin 1.1 %THgb (0.4-20.1); Methemoglobin 1.1 % (0.4-1.5)
[2025-04-21 08:20] LABS: Arterial Blood Gas Hematocrit 47.4 % (37-47); Blood Gas Operator Identificat CAK; Blood Gas Sample Type Not specified; Carboxyhemoglobin 1.1 %THgb (0.4-20.1); Methemoglobin 0.8 % (0.4-1.5)
[2025-04-21 08:21] LABS: Arterial Blood Gas Hematocrit 44.8 % (37-47); Blood Gas Operator Identificat CAK; Blood Gas Sample Type Not specified; Carboxyhemoglobin 1.1 %THgb (0.4-20.1); Methemoglobin 0.9 % (0.4-1.5)
[2025-04-21 08:22] LABS: Arterial Blood Gas Hematocrit 59.3 % (37-47); Blood Gas Operator Identificat CAK; Blood Gas Sample Type Not specified; Carboxyhemoglobin 1.0 %THgb (0.4-20.1); Methemoglobin 0.8 % (0.4-1.5)
--- NOTE | 2025-04-21 08:52 | PC.NURSE ---
Pt arrived to CPRU post cath. Pt alert and oriented. Complains of mild discomfort to right brachial access site, otherwise denies pain. TR band to right wrist, no signs of bleeding or hematoma. Right brachial has compression dressing on, site asymptomatic. No signs of bleeding or hematoma. Pt placed on bedside cardiac cath technician. Post op Activity restrictions given to patient and her spouse , verbalizing understanding. IV fluids started at 100ml/hr until discharge per physician order. Call light in reach.
== END 2025-04-21 13:20 | disposition home or self-care (01) ==
PROVIDERS: PCP Family Medicine; Visit Provider Internal Medicine Cardiovascular Disease
DX: I25.10 Atherosclerotic heart disease of native coronary artery without angina pectoris (principal); I10 Essential (primary) hypertension; E78.5 Hyperlipidemia, unspecified; E66.9 Obesity, unspecified; Z68.34 Body mass index [BMI] 34.0-34.9, adult; E11.9 Type 2 diabetes mellitus without complications; Z79.84 Long term (current) use of oral hypoglycemic drugs
CPT/HCPCS: 36415; 82810; 93460; 96365; 99152; 99153; C1751; C1769; C1887; C1894; J1644; J2250; J2405; J3010; J3490; J7030; J9999; Q0163; Q9967

== ENCOUNTER → 2025-04-28 15:21 | Outpatient (BNVA) | payer MEDICARE, OTHER, SELFPAY | PROVIDERS: PCP Family Medicine; Visit Provider Nurse Practitioner Family | DX: I25.118 Atherosclerotic heart disease of native coronary artery with other forms of angina pectoris (principal); E78.5 Hyperlipidemia, unspecified; D86.9 Sarcoidosis, unspecified; I10 Essential (primary) hypertension; I25.10 Atherosclerotic heart disease of native coronary artery without angina pectoris | CPT/HCPCS: 36415; 80048; 83880; 85025; 99213 ==

== ENCOUNTER 2025-05-05 07:27 | Outpatient (CLI) | payer MEDICARE, OTHER, SELFPAY ==
--- NOTE | 2025-05-05 07:45 | USCV_ITS ---
Dionne Lu Age: 70 Gender: F : 1955 Exam Date: 05/05/2025 07:39 Ordering Phys: Kehinde Isaacs MD ([email or web address]) Technologist: MYRA Exam Location[place] [facility] [place] Indication: SoB BP: 157 / 79 HR: 72 Rhythm: Sinus Technical Quality: Adequate MEASUREMENTS (Male / Female) Normal Values 2D ECHO LV Diastolic Diameter PLAX 4.4 cm 4.2 - 5.9 / 3.9 - 5.3 cm IVS Diastolic Thickness 1.2 cm 0.6 - 1.0 / 0.6 - 0.9 cm IVS Systolic Thickness 2.1 cm LVPW Diastolic Thickness 1.1 cm 0.6 - 1.0 / 0.6 - 0.9 cm LVPW Systolic Thickness 1.5 cm LVOT Diameter 2.1 cm LV Ejection Fraction 2D Teich 55.3 % LV Ejection Fraction MOD 4C 58.3 % LV Ejection Fraction MOD 2C 47.2 % LV Ejection Fraction 2C AL 47.9 % LA Diameter 3.8 cm RA Systolic Volume 4C AL 19.0 ml RA Systolic Volume 4C MOD 18.5 ml LA Sys Volume AL 34.6 cm cubed LA Sys Volume Index AL 16.2 cm cubed/m squared Aorta at Sinotubular Diameter 2.6 cm M-MODE LA Ao Ratio MM 1.9 AV Cusp Separation MM 1.3 cm DOPPLER AV Peak Velocity 125.0 cm/s LVOT Peak Velocity 81.0 cm/s AV Area Cont Eq vti 2.2 cm squared AV Area Cont Eq pk 2.2 cm squared MV Peak Velocity 104.0 cm/s MV Area PHT 4.3 cm squared Mitral E to A Ratio 0.7 TR Peak Velocity 95.0 cm/s TR Peak Gradient 3.6 mmHg TV Peak E Velocity 59.0 cm/s PV Peak Velocity 137.0 cm/s FINDINGS Left Ventricle Normal left ventricular size, systolic function and wall thickness, with no regional wall motion abnormalities. Left ventricular ejection fraction is estimated at 60 %. Grade I/IV diastolic dysfunction (abnormal relaxation filling pattern), normal to mildly elevated filling pressures. Right Ventricle The right ventricle is normal in size and function. Right Atrium The right atrium is normal in size. Left Atrium The left atrium is normal in size. Mitral Valve Structurally normal mitral valve without significant stenosis or prolapse. There is no mitral regurgitation. Aortic Valve Structurally normal aortic valve without significant sclerosis or stenosis. There is no aortic regurgitation. Tricuspid Valve Structurally normal tricuspid valve without significant stenosis or regurgitation. Pulmonary artery systolic pressure is normal. Pulmonic Valve Structurally normal pulmonic valve without significant stenosis. There is no pulmonic regurgitation. Pericardium Normal pericardium without effusion. Aorta Normal ascending aorta dimension. IVC The inferior vena cava appears normal. CONCLUSIONS Normal left ventricular size, systolic function and wall thickness, with no regional wall motion abnormalities. Left ventricular ejection fraction is estimated at 60 %. Grade I/IV diastolic dysfunction (abnormal relaxation filling pattern), normal to mildly elevated filling pressures. No significant valve abnormalities. There is no pericardial effusion. Right atrial pressure is around 5 mm of mercury. Kehnide Isaacs MD (Electronically Signed) Final Date: 08 May 2025 14:19 S
== END 2025-05-05 07:28 | disposition home or self-care (01) ==
LOC: RAD 07:28
PROVIDERS: PCP Family Medicine; Visit Provider Internal Medicine Cardiovascular Disease
DX: R06.02 Shortness of breath (principal); R93.1 Abnormal findings on diagnostic imaging of heart and coronary circulation
CPT/HCPCS: 93306

== ENCOUNTER 2025-05-29 04:42 | Emergency (ER) | payer MEDICARE, OTHER, SELFPAY ==
--- OUTSIDE RECORDS SUMMARY | 2025-05-29 04:47 | XMS_ITS | Encounter Summary ---
Author Organization [facility] Address [address] [place] [address] Care Team Providers Care Plaster Foreman Name Role Phone Neel Harris MD Primary Care Provider [phone]- [phone] Encounter Details Date Type Department Care Team (Latest Contact Info) Description 02/21/2000 Outpatient Historical [facility] Carroll Hansen NO ADDRESS ON FILE Pain in joint, site unspecified (Primary Dx); Myalgia and myositis, unspecified; Other and unspecified hyperlipidemia; Unspecified essential hypertension Social History Tobacco Use Types Packs/Day Years Used Date Smoking Tobacco: Never Assessed Comments Unknown Sex and Gender Information Value Date Recorded Sex Assigned at Not on file Legal Sex Female 5:28 AM [employer] Gender Identity Not on file Sexual Orientation Not on file documented as of this encounter Plan of Treatment Not on file documented as of this encounter Visit Diagnoses Diagnosis Pain in joint, site unspecified- Primary Myalgia and myositis, unspecified Mylagia and myositis, unspecified Other and unspecified hyperlipidemia Unspecified essential hypertension documented in this encounter Care Teams Plaster Foreman Relationship Specialty Start Date End Date Neel Harris MD [address] [phone] PCP - General 06/26/06 documented as of this encounter
--- OUTSIDE RECORDS SUMMARY | 2025-05-29 04:47 | XMS_ITS | Encounter Summary ---
Author Organization [facility] Address [address] [place] [address] Care Team Providers Care Hot Mix Operator Name Role Phone Neel Harris MD Primary Care Provider +1- [phone] Encounter Details Date Type Department Care Team (Latest Contact Info) Description 10/10/1999 Outpatient Historical [facility] Carroll Hansen NO ADDRESS ON FILE Nonspecific abnormal results of liver function study (Primary Dx) Social History Tobacco Use Types Packs/Day Years Used Date Smoking Tobacco: Never Assessed Comments Unknown Sex and Gender Information Value Date Recorded Sex Assigned at Not on file Legal Sex Female 5:28 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
--- OUTSIDE RECORDS SUMMARY | 2025-05-29 04:47 | XMS_ITS | Encounter Summary ---
Author Organization [facility] Address [address] [place] [address] Care Team Providers Care Artificial Insemination Technician Name Role Phone Neel Harris MD Primary Care Provider +1- [phone] Encounter Details Date Type Department Care Team (Late st Contact Info) Description 12/14/2009 Ancillary Orders [facility] [address] [facility] [address] [place] [address] Zachary Gamino MD NO ADDRESS ON FILE Other Screening Mammogram Social History Tobacco Use Types Packs/Day Years Used Date Smoking Tobacco: Never Assessed Comments Unknown Sex and Gender Information Value Date Recorded Sex Assigned at Not on file Legal 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 This examination was reviewed with the aid of a computer-aided detection system(CAD). The breast tissue is dense. No significant new findings since the prior mammogram(s). Procedure Note Alice Richard MD - 01/22/2010 Bilateral Mammogram Reason for Exam: Screening Comparison: Comparison is made with the prior exam(s) dated 08.06.06 Findings: Bilateral CC and MLO views were obtained. This examination was reviewed with the aid of a computer-aided detectionsystem(CAD). The breast tissue is dense. No significant new findings since the prior mammogram(s). Zachary Gamino MD MAMMO ORDERABLES Final Result documented in this encounter Visit Diagnoses Diagnosis Other screening mammogram Other screening mammogram documented in this encounter Care Teams Artificial Insemination Technician Relationship Specialty Start Date End Date Neel Harris MD [address] [phone] PCP - General 06/26/06 documented as of this encounter
[2025-05-29 04:48] VITALS: BP 174/87; PULSE 97; RESP 16; TEMP 37.1; O2SAT 96; BMI 34.9
--- OUTSIDE RECORDS SUMMARY | 2025-05-29 04:48 | XMS_ITS | Encounter Summary ---
Author Organization [facility] Address [address] [place] [address] Care Team Providers Care Photography Sales Associate Name Role Phone Neel Harris MD Primary Care Provider +1- [phone] Encounter Details Date Type Department Care Team (Latest Contact Info) Description 06/05/2002 Outpatient Historical [facility] Milton Brandon Jr., MD [address] [place] [address] HYPOTHYROIDISM NOS (Primary Dx); ELEV TRANSAMINASE/LDH Social History Tobacco Use Types Packs/Day Years Used Date Smoking Tobacco: Never Assessed Comments Unknown Sex and Gender Information Value Date Recorded Sex Assigned at Not on file Legal Sex Female 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
--- OUTSIDE RECORDS SUMMARY | 2025-05-29 04:48 | XMS_ITS | Encounter Summary ---
Author Organization [facility] Address [address] [place] [address] Care Team Providers Care Child Care Associate Teacher Name Role Phone Neel Harris MD Primary Care Provider +1- [phone] Encounter Details Date Type Department Care Team (Late st Contact Info) Description 02/18/2007 Outpatient [facility] [address] [place] [phone] Social History Tobacco Use Types Packs/Day Years Used Date Smoking Tobacco: Never Assessed Comments Unknown Sex and Gender Information Value Date Recorded Sex Assigned at Not on file Legal Sex Female 5:28 AM SECURITY 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
--- OUTSIDE RECORDS SUMMARY | 2025-05-29 04:48 | XMS_ITS | Encounter Summary ---
Author Organization [facility] Address [address] [place] [address] Care Team Providers Care Substitute Crossing Guard Name Role Phone Neel Harris MD Primary Care Provider +1- [phone] Encounter Details Date Type Department Care Team (Latest Contact Info) Description 05/14/2003 [facility] [address] [place] [address] Zachary Gamino MD NO ADDRESS ON FILE SCREENING MAMM-MAILG NEOPL-OTHER (Primary Dx) Social History Tobacco Use Types Packs/Day Years Used Date Smoking Tobacco: Never Assessed Comments Unknown Sex and Gender Information Value Date Recorded Sex Assigned at Not on file Legal Sex Female 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
--- OUTSIDE RECORDS SUMMARY | 2025-05-29 04:48 | XMS_ITS | Encounter Summary ---
Author Organization [facility] Address [address] [place] [address] Care Team Providers Care Dental Services Director Name Role Phone Neel Harris MD Primary Care Provider +1- [phone] Encounter Details Date Type Department Care Team (Latest Contact Info) Description 06/11/2003 Outpatient Historical [facility] Milton Brandon Jr., MD [address] [place] [address] DIABETES UNCOMPL ADULT-TYPE II (CMS/HCC) (Primary Dx); HYPERTENSION NOS Social History Tobacco Use Types Packs/Day Years Used Date Smoking Tobacco: Never Assessed Comments Unknown Sex and Gender Information Value Date Recorded Sex Assigned at Not on file Legal Sex Female 5:28 AM STRAIGHT CUTTER Gender Identity Not on file Sexual Orientation Not on file documented as of this encounter Plan of Treatment Not on file documented as of this encounter Visit Diagnoses Diagnosis Type II or unspecified type diabetes mellitus without mention of complication, not stated as uncontrolled- Primary Unspecified essential hypertension documented in this encounter Care Teams Dental Services Director Relationship Specialty Start Date End Date Neel Harris MD [address] [place] [phone] PCP - General 06/26/06 documented as of this encounter
--- OUTSIDE RECORDS SUMMARY | 2025-05-29 04:48 | XMS_ITS | Encounter Summary ---
Author Organization [facility] Address [address] [place] [address] Care Team Providers Care Consulting Solution Director Name Role Phone Neel Harris MD Primary Care Provider +1- [phone] Encounter Details Date Type Department Care Team (Latest Contact Info) Description 10/04/2000 Outpatient Historical [facility] Carroll Hansen NO ADDRESS ON FILE Type II or unspecified type diabetes mellitus without mention of complication, uncontrolled (Primary Dx) Social History Tobacco Use Types Packs/Day Years Used Date Smoking Tobacco: Never Assessed Comments Unknown Sex and Gender Information Value Date Recorded Sex Assigned at Not on file Legal Sex Female 5:28 AM CAN RUNNER Gender Identity Not on file Sexual Orientation Not on file documented as of this encounter Plan of Treatment Not on file documented as of this encounter Visit Diagnoses Diagnosis Type II or unspecified type diabetes mellitus without mention of complication, uncontrolled- Primary documented in this encounter Care Teams Consulting Solution Director Relationship Specialty Start Date End Date Neel Harris MD [address] [place] [phone] PCP - General 06/26/06 documented as of this encounter
--- OUTSIDE RECORDS SUMMARY | 2025-05-29 04:48 | XMS_ITS | Encounter Summary ---
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) Social History Tobacco Use Types Packs/Day Years Used Date Smoking Tobacco: Never Assessed Comments Unknown Sex and Gender Information Value Date Recorded Sex Assigned at Not on file Legal Sex Female 5:[address]MINISTRATOR Gender Identity Not on file Sexual Orientation Not on file documented as of this encounter Plan of Treatment Not on file documented as of this encounter Visit Diagnoses Diagnosis Displacement of cervical intervertebral disc without myelopathy- Primary documented in this encounter Care Teams Bridge Club Manager Relationship Specialty Start Date End Date Neel Harris MD [address] [place] [phone] PCP - General 06/26/06 documented as of this encounter
--- OUTSIDE RECORDS SUMMARY | 2025-05-29 04:48 | XMS_ITS | Encounter Summary ---
Author Organization [facility] Address [address] [place] [address] Care Team Providers Care Infantryman Name Role Phone Neel Harris MD Primary Care Provider +1- [phone] Encounter Details Date Type Department Care Team (Latest Contact Info) Description 06/23/2002 Outpatient Historical [facility] Gastroenterology- [place] [address] [facility] [address] [place] [phone] Mark Seals MD [address] [facility] [address] [place] [phone] ABNORMAL LIVER FUNCTION STUDY (Primary Dx) Social History Tobacco Use Types Packs/Day Years Used Date Smoking Tobacco: Never Assessed Comments Unknown Sex and Gender Information Value Date Recorded Sex Assigned at Not on file Legal Sex Female 5:28 AM EXCHANGE ENGINEER Gender Identity Not on file Sexual Orientation Not on file documented as of this encounter Plan of Treatment Not on file documented as of this encounter Visit Diagnoses Diagnosis Nonspecific abnormal results of liver function study- Primary documented in this encounter Care Teams Infantryman Relationship Specialty Start Date End Date Neel Harris MD [address] [place] [phone] PCP - General 06/26/06 documented as of this encounter
--- OUTSIDE RECORDS SUMMARY | 2025-05-29 04:48 | XMS_ITS | Encounter Summary ---
Author Organization [facility] Address [address] Olson: [place] [address] Care Team Providers Care Partner Marketing Manager Name Role Phone Neel Harris MD Primary Care Provider +1- [phone] Encounter Details Date Type Department Care Team (Late st Contact Info) Description 05/06/2002 Inpatient Historical Edwin Ryan MD [address] [place] [phone] Social History Tobacco Use Types Packs/Day Years Used Date Smoking Tobacco: Never Assessed Comments Unknown Sex and Gender Information Value Date Recorded Sex Assigned at Not on file Legal Sex Female 5:28 AM RUG FRAME MOUNTER Gender Identity Not on file Sexual Orientation Not on file documented as of this encounter Plan of Treatment Not on file documented as of this encounter Visit Diagnoses Not on filedocumented in this encounter Care Teams Partner Marketing Manager Relationship Specialty Start Date End Date Neel Harris MD [address] [place] [phone] PCP - General 06/26/06 documented as of this encounter
--- OUTSIDE RECORDS SUMMARY | 2025-05-29 04:48 | XMS_ITS | Encounter Summary ---
Author Organization [facility] Address [address] [place] [address] Care Team Providers Care Live Truck Technician Name Role Phone Neel Harris MD Primary Care Provider +1- [phone] Encounter Details Date Type Department Care Team (Latest Contact Info) Description 08/06/2007 Outpatient Historical [facility] [address] [place] [address] Jimmie Everett III, MD [address] [place] [address] Pain in Joint, Shoulder Region (Primary Dx); Other Affections of Shoulder Region, not Elsewhere Classified; Primary Localized Osteoarthrosis, Shoulder Region; Unspecified Disorders of Bursae and Tendons in Shoulder Region Social History Tobacco Use Types Packs/Day Years Used Date Smoking Tobacco: Never Assessed Comments Unknown Sex and Gender Information Value Date Recorded Sex Assigned at Not on file Legal Sex Female 5:28 AM COMPOSITION INSTRUCTOR Gender Identity Not on file Sexual Orientation Not on file documented as of this encounter Plan of Treatment Not on file documented as of this encounter Visit Diagnoses Diagnosis Pain in joint, shoulder region- Primary Other affections of shoulder region, not elsewhere classified Primary localized osteoarthrosis, shoulder region Disorders of bursae and tendons in shoulder region, unspecified documented in this encounter Care Teams Live Truck Technician Relationship Specialty Start Date End Date Neel Harris MD [address] [place] [phone] PCP - General 06/26/06 documented as of this encounter
--- OUTSIDE RECORDS SUMMARY | 2025-05-29 04:48 | XMS_ITS | Encounter Summary ---
Author Organization [facility] Address [address] [place] [address] Care Team Providers Care Systems Programmer Name Role Phone Neel Harris MD Primary Care Provider +1- [phone] Encounter Details Date Type Department Care Team (Late st Contact Info) Description 06/23/2004 Outpatient Historical [facility] Zachary Gamino MD NO ADDRESS ON FILE Social History Tobacco Use Types Packs/Day Years Used Date Smoking Tobacco: Never Assessed Comments Unknown Sex and Gender Information Value Date Recorded Sex Assigned at Not on file Legal Sex Female 5:28 AM POLYMER SCIENTIST Gender Identity Not on file Sexual Orientation Not on file documented as of this encounter Plan of Treatment Not on file documented as of this encounter Visit Diagnoses Not on filedocumented in this encounter Care Teams Systems Programmer Relationship Specialty Start Date End Date Neel Harris MD [address] [phone] PCP - General 06/26/06 documented as of this encounter
--- OUTSIDE RECORDS SUMMARY | 2025-05-29 04:48 | XMS_ITS | Encounter Summary ---
Author Organization [facility] Address [address] [place] [address] Care Team Providers Care Air Sampler Name Role Phone Neel Harris MD Primary Care Provider +1- [phone] Encounter Details Date Type Department Care Team (Latest Contact Info) Description 09/24/2000 Outpatient Historical [facility] Carroll Hansen NO ADDRESS ON FILE Other and unspecified hyperlipidemia (Primary Dx); Nonspecific abnormal results of liver function study; Unspecified hypothyroidism; Type II or unspecified type diabetes mellitus without mention of complication, not stated as uncontrolled Social History Tobacco Use Types Packs/Day Years Used Date Smoking Tobacco: Never Assessed Comments Unknown Sex and Gender Information Value Date Recorded Sex Assigned at Not on file Legal Sex Female 5:28 AM EXTRACT OPERATOR Gender Identity Not on file Sexual Orientation Not on file documented as of this encounter Plan of Treatment Not on file documented as of this encounter Visit Diagnoses Diagnosis Other and unspecified hyperlipidemia- Primary Nonspecific abnormal results of liver function study Unspecified hypothyroidism Type II or unspecified type diabetes mellitus without mention of complication, not stated as uncontrolled documented in this encounter Care Teams Air Sampler Relationship Specialty Start Date End Date Neel Harris MD [address] [phone] PCP - General 06/26/06 documented as of this encounter
--- OUTSIDE RECORDS SUMMARY | 2025-05-29 04:48 | XMS_ITS | Encounter Summary ---
Author Organization [facility] Address [address] [place] [address] Care Team Providers Care Process Development Associate Name Role Phone Neel Harris MD Primary Care Provider +1- [phone] Encounter Details Date Type Department Care Team (Latest Contact Info) Description 10/25/2000 Outpatient Historical [facility] Carroll Hansen NO ADDRESS ON FILE Type II or unspecified type diabetes mellitus without mention of complication, uncontrolled (Primary Dx); Dietary surveil/after school counselor Social History Tobacco Use Types Packs/Day Years Used Date Smoking Tobacco: Never Assessed Comments Unknown Sex and Gender Information Value Date Recorded Sex Assigned at Not on file Legal Sex Female 5:28 AM CLIENT SERVICES ACCOUNT MANAGER Gender Identity Not on file Sexual Orientation Not on file documented as of this encounter Plan of Treatment Not on file documented as of this encounter Visit Diagnoses Diagnosis Type II or unspecified type diabetes mellitus without mention of complication, uncontrolled- Primary Dietary surveil/after school counselor Dietary surveillance and counseling documented in this encounter Care Teams Process Development Associate Relationship Specialty Start Date End Date Neel Harris MD [address] [phone] PCP - General 06/26/06 documented as of this encounter
--- OUTSIDE RECORDS SUMMARY | 2025-05-29 04:48 | XMS_ITS | Encounter Summary ---
Author Organization [facility] Address [address] [place] [address] Care Team Providers Care Process Specialist Name Role Phone Neel Harris MD Primary Care Provider +1- [phone] Encounter Details Date Type Department Care Team (Latest Contact Info) Description 05/14/2003 Outpatient Historical [facility] [address] [place] [phone] Zachary Gamino MD NO ADDRESS ON FILE POSTMENOPAUSAL BLEEDING (Primary Dx); HIRSUTISM; SCREENING MAL NEOP-CERVIX Social History Tobacco Use Types Packs/Day Years Used Date Smoking Tobacco: Never Assessed Comments Unknown Sex and Gender Information Value Date Recorded Sex Assigned at Not on file Legal Sex Female 5:28 AM ADVANCED MANUFACTURING ENGINEER Gender Identity Not on file Sexual Orientation Not on file documented as of this encounter Plan of Treatment Not on file documented as of this encounter Visit Diagnoses Diagnosis Postmenopausal bleeding- Primary Hirsutism Screening for malignant neoplasm of the cervix documented in this encounter Care Teams Process Specialist Relationship Specialty Start Date End Date Neel Harris MD [address] [phone] PCP - General 06/26/06 documented as of this encounter
--- OUTSIDE RECORDS SUMMARY | 2025-05-29 04:48 | XMS_ITS | Encounter Summary ---
Author Organization [facility] Address [address] [place] [address] Care Team Providers Care Photograph Retoucher Name Role Phone Neel Harris MD Primary Care Provider +1- [phone] Encounter Details Date Type Department Care Team (Latest Contact Info) Description 08/11/2003 Outpatient Historical [facility] Milton Brandon Jr., MD [address] [place] [address] HYPERTENSION NOS (Primary Dx); ACUTE SINUSITIS NOS; DIABETES UNCOMPL ADULT-TYPE II ([facility]); HYPOTHYROIDISM NOS; VACCINE FOR STREP PNEUMONIAE; Vaccine for influenza Social History Tobacco Use Types Packs/Day Years Used Date Smoking Tobacco: Never Assessed Comments Unknown Sex and Gender Information Value Date Recorded Sex Assigned at Not on file Legal Sex Female 5:28 AM LEATHER CUTTER Gender Identity Not on file Sexual Orientation Not on file documented as of this encounter Plan of Treatment Not on file documented as of this encounter Visit Diagnoses Diagnosis Unspecified essential hypertension- Primary Acute sinusitis, unspecified Type II or unspecified type diabetes mellitus without mention of complication, not stated as uncontrolled Unspecified hypothyroidism Need for prophylactic vaccination against Streptococcus pneumoniae (pneumococcus) Need for prophylactic vaccination against streptococcus pneumoniae (pneumococcus) Vaccine for influenza Need for prophylactic vaccination and inoculation against influenza documented in this encounter Care Teams Photograph Retoucher Relationship Specialty Start Date End Date Neel Harris MD [address] [phone] PCP - General 06/26/06 documented as of this encounter
--- OUTSIDE RECORDS SUMMARY | 2025-05-29 04:48 | XMS_ITS | Encounter Summary ---
Author Organization [facility] Address [address] [place] [address] Care Team Providers Care Machine Feller Name Role Phone Neel Harris MD Primary Care Provider +1- [phone] Encounter Details Date Type Department Care Team (Latest Contact Info) Description 06/23/2002 Outpatient Historical [facility] [address] [place] [phone] Zachary Gamino MD NO ADDRESS ON FILE PREOP EXAM OTHER SPECIFIED (Primary Dx); OVARIAN CYST NEC/NOS Social History Tobacco Use Types Packs/Day Years Used Date Smoking Tobacco: Never Assessed Comments Unknown Sex and Gender Information Value Date Recorded Sex Assigned at Not on file Legal Sex Female 5:28 AM ELECTRICAL SOLDERER Gender Identity Not on file Sexual Orientation Not on file documented as of this encounter Plan of Treatment Not on file documented as of this encounter Visit Diagnoses Diagnosis Other specified pre-operative examination- Primary Other and unspecified ovarian cyst documented in this encounter Care Teams Machine Feller Relationship Specialty Start Date End Date Neel Harris MD [address] [phone] PCP - General 06/26/06 documented as of this encounter
--- OUTSIDE RECORDS SUMMARY | 2025-05-29 04:48 | XMS_ITS | Encounter Summary ---
Author Organization [facility] Address [address] [place] [address] Care Team Providers Care Program Attendant Name Role Phone Neel Harris MD Primary Care Provider +1- [phone] Encounter Details Date Type Department Care Team (Latest Contact Info) Description 09/29/1999 Outpatient Historical HIS [facility] Carroll Hansen NO ADDRESS ON FILE Nonspecific abnormal results of liver function study (Primary Dx); Other and unspecified hyperlipidemia; Unspecified hypothyroidism Social History Tobacco Use Types Packs/Day Years Used Date Smoking Tobacco: Never Assessed Comments Unknown Sex and Gender Information Value Date Recorded Sex Assigned at Not on file Legal Sex Female 5:28 AM I O PSYCHOLOGIST Gender Identity Not on file Sexual Orientation Not on file documented as of this encounter Plan of Treatment Not on file documented as of this encounter Visit Diagnoses Diagnosis Nonspecific abnormal results of liver function study- Primary Other and unspecified hyperlipidemia Unspecified hypothyroidism documented in this encounter Care Teams Program Attendant Relationship Specialty Start Date End Date Neel Harris MD [address] [place] [phone] PCP - General 06/26/06 documented as of this encounter
--- OUTSIDE RECORDS SUMMARY | 2025-05-29 04:48 | XMS_ITS | Encounter Summary ---
Author Organization [facility] Address [address] Olson: [place] [address] Care Team Providers Care Operations Intelligence Name Role Phone Neel Harris MD Primary Care Provider +1- [phone] Encounter Details Date Type Department Care Team (Late st Contact Info) Description 07/24/2002 Outpatient Historical [facility] [address] [facility] [address] [place] [phone] Social History Tobacco Use Types Packs/Day Years Used Date Smoking Tobacco: Never Assessed Comments Unknown Sex and Gender Information Value Date Recorded Sex Assigned at Not on file Legal Sex Female 5:28 AM AMBULANCE OFFICER Gender Identity Not on file Sexual Orientation Not on file documented as of this encounter Plan of Treatment Not on file documented as of this encounter Visit Diagnoses Not on filedocumented in this encounter Care Teams Operations Intelligence Relationship Specialty Start Date End Date Neel Harris MD [address] [place] [address] [address] [place] [phone] PCP - General 06/26/06 documented as of this encounter
--- OUTSIDE RECORDS SUMMARY | 2025-05-29 04:48 | XMS_ITS | Encounter Summary ---
Author Organization [facility] Address [address] Olson: Epic Prelude ADT [place] [address] Care Team Providers Care Account Executive Sales Representative Name Role Phone Neel Harris MD Primary Care Provider +1- [phone] Encounter Details Date Type Department Care Team (Late st Contact Info) Description 04/20/2002 Outpatient Historical Zachary Gamino MD NO ADDRESS ON FILE Social History Tobacco Use Types Packs/Day Years Used Date Smoking Tobacco: Never Assessed Comments Unknown Sex and Gender Information Value Date Recorded Sex Assigned at Not on file Legal Sex Female 5:28 AM TERRA COTTA ROOFER Gender Identity Not on file Sexual Orientation Not on file documented as of this encounter Plan of Treatment Not on file documented as of this encounter Visit Diagnoses Not on filedocumented in this encounter Care Teams Account Executive Sales Representative Relationship Specialty Start Date End Date Neel Harris MD [address] [place] [phone] PCP - General 06/26/06 documented as of this encounter
--- OUTSIDE RECORDS SUMMARY | 2025-05-29 04:48 | XMS_ITS | Encounter Summary ---
Author Organization [facility] Address [address] [place] [address] Care Team Providers Care Catalyst Recovery Operator Name Role Phone Neel Harris MD Primary Care Provider +1- [phone] Encounter Details Date Type Department Care Team (Latest Contact Info) Description 04/20/2002 Outpatient Historical [facility] [place] [address] [place] [address] Alice Richard MD NO ADDRESS ON FILE SCREENING MAMM-MAILG NEOPL-OTHER (Primary Dx) Social History Tobacco Use Types Packs/Day Years Used Date Smoking Tobacco: Never Assessed Comments Unknown Sex and Gender Information Value Date Recorded Sex Assigned at Not on file Legal Sex Female 5:28 AM DIRECTOR OF TESTING Gender Identity Not on file Sexual Orientation Not on file documented as of this encounter Plan of Treatment Not on file documented as of this encounter Visit Diagnoses Diagnosis Other screening mammogram- Primary documented in this encounter Care Teams Catalyst Recovery Operator Relationship Specialty Start Date End Date Neel Harris MD [address] [place] [phone] PCP - General 06/26/06 documented as of this encounter
--- OUTSIDE RECORDS SUMMARY | 2025-05-29 04:48 | XMS_ITS | Encounter Summary ---
Author Organization [facility] Address [address] [place] [address] Care Team Providers Care Waste Picker Name Role Phone Neel Harris MD Primary Care Provider +1- [phone] Encounter Details Date Type Department Care Team (Latest Contact Info) Description 07/25/1999 Outpatient Historical [facility] Carroll Hansen NO ADDRESS ON FILE Unspecified essential hypertension (Primary Dx); Other malaise and fatigue Social History Tobacco Use Types Packs/Day Years Used Date Smoking Tobacco: Never Assessed Comments Unknown Sex and Gender Information Value Date Recorded Sex Assigned at Not on file Legal Sex Female 5:28 AM ORE DRYER Gender Identity Not on file Sexual Orientation Not on file documented as of this encounter Plan of Treatment Not on file documented as of this encounter Visit Diagnoses Diagnosis Unspecified essential hypertension- Primary Other malaise and fatigue documented in this encounter Care Teams Waste Picker Relationship Specialty Start Date End Date Neel Harris MD [address] [place] [phone] PCP - General 06/26/06 documented as of this encounter
--- OUTSIDE RECORDS SUMMARY | 2025-05-29 04:48 | XMS_ITS | Encounter Summary ---
Author Organization [facility] Address [address] [place] [address] Care Team Providers Care Pot Feeder Name Role Phone Neel Harris MD Primary Care Provider +1- [phone] Encounter Details Date Type Department Care Team (Latest Contact Info) Description 04/06/2003 Outpatient Historical [facility] Milton Brandon Jr., MD [address] [place] [address] FEVER (Primary Dx); TACHYCARDIA NOS Social History Tobacco Use Types Packs/Day Years Used Date Smoking Tobacco: Never Assessed Comments Unknown Sex and Gender Information Value Date Recorded Sex Assigned at Not on file Legal Sex Female 5:28 AM FLOOR SPACE ALLOCATOR Gender Identity Not on file Sexual Orientation Not on file documented as of this encounter Plan of Treatment Not on file documented as of this encounter Visit Diagnoses Diagnosis Fever and other physiologic disturbances of temperature regulation- Primary Tachycardia, unspecified documented in this encounter Care Teams Pot Feeder Relationship Specialty Start Date End Date Neel Harris MD [address] [phone] PCP - General 06/26/06 documented as of this encounter
--- OUTSIDE RECORDS SUMMARY | 2025-05-29 04:48 | XMS_ITS | Encounter Summary ---
Author Organization [facility] Address [address] [place] [address] Care Team Providers Care Computer Art Instructor Name Role Phone Neel Harris MD Primary Care Provider +1- [phone] Encounter Details Date Type Department Care Team (Late st Contact Info) Description 04/06/2003 Outpatient Historical HIS [facility] Milton Brandon Jr., MD [address] [place] [phone] Social History Tobacco Use Types Packs/Day Years Used Date Smoking Tobacco: Never Assessed Comments Unknown Sex and Gender Information Value Date Recorded Sex Assigned at Not on file Legal Sex Female 5:28 AM PHARMACY ACCOUNT DIRECTOR Gender Identity Not on file Sexual Orientation Not on file documented as of this encounter Plan of Treatment Not on file documented as of this encounter Visit Diagnoses Not on filedocumented in this encounter Care Teams Computer Art Instructor Relationship Specialty Start Date End Date Neel Harris MD [address] [phone] PCP - General 06/26/06 documented as of this encounter
--- OUTSIDE RECORDS SUMMARY | 2025-05-29 04:48 | XMS_ITS | Encounter Summary ---
Author Organization [facility] Address [address] [place] [address] Care Team Providers Care Welder First Class Name Role Phone Neel Harris MD Primary Care Provider +1- [phone] Encounter Details Date Type Department Care Team (Latest Contact Info) Description 02/18/2007 Outpatient Historical [facility] Pain Management Procedures [address] [place] [phone] Ian Patterson MD NO ADDRESS ON FILE Displacement of Cervical Intervertebral Disc without Myelopathy (Primary Dx) Social History Tobacco Use Types Packs/Day Years Used Date Smoking Tobacco: Never Assessed Comments Unknown Sex and Gender Information Value Date Recorded Sex Assigned at Not on file Legal Sex Female 5:28 AM ADVANCE SCOUT Gender Identity Not on file Sexual Orientation Not on file documented as of this encounter Plan of Treatment Not on file documented as of this encounter Visit Diagnoses Diagnosis Displacement of cervical intervertebral disc without myelopathy- Primary documented in this encounter Care Teams Welder First Class Relationship Specialty Start Date End Date Neel Harris MD [address] [place] [phone] PCP - General 06/26/06 documented as of this encounter
--- OUTSIDE RECORDS SUMMARY | 2025-05-29 04:48 | XMS_ITS | Encounter Summary ---
Author Organization [facility] Address [address] [place] [address] Care Team Providers Care Wafer Polishing Lead Worker Name Role Phone Neel Harris MD Primary Care Provider +1- [phone] Encounter Details Date Type Department Care Team (Latest Contact Info) Description 06/09/2001 Outpatient Historical [facility] NikitaNaldo MD [address] [facility] [address] [place] [address] Esophageal reflux (Primary Dx); Dyspepsia and other specified disorders of function of stomach Social History Tobacco Use Types Packs/Day Years Used Date Smoking Tobacco: Never Assessed Comments Unknown Sex and Gender Information Value Date Recorded Sex Assigned at Not on file Legal Sex Female 5:28 AM BREAST BUFFER Gender Identity Not on file Sexual Orientation Not on file documented as of this encounter Plan of Treatment Not on file documented as of this encounter Visit Diagnoses Diagnosis Esophageal reflux- Primary Dyspepsia and other specified disorders of function of stomach documented in this encounter Care Teams Wafer Polishing Lead Worker Relationship Specialty Start Date End Date Neel Harris MD [address] [place] [phone] PCP - General 06/26/06 documented as of this encounter
--- OUTSIDE RECORDS SUMMARY | 2025-05-29 04:48 | XMS_ITS | Encounter Summary ---
Author Organization [facility] Address [address] [place] [address] Care Team Providers Care Extrusion Supervisor Name Role Phone Neel Harris MD Primary Care Provider +1- [phone] Encounter Details Date Type Department Care Team (Latest Contact Info) Description 12/30/2000 Outpatient Historical [facility] [address] [place] [address] Zachary Gamino MD NO ADDRESS ON FILE Gynecologic examination (Primary Dx); Abdominal pain, left lower quadrant Social History Tobacco Use Types Packs/Day Years Used Date Smoking Tobacco: Never Assessed Comments Unknown Sex and Gender Information Value Date Recorded Sex Assigned at Not on file 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
--- OUTSIDE RECORDS SUMMARY | 2025-05-29 04:48 | XMS_ITS | Encounter Summary ---
Author Organization [facility] Address [address] [place] [address] Care Team Providers Care Drink Mixer Name Role Phone Neel Harris MD Primary Care Provider +1- [phone] Encounter Details Date Type Department Care Team (Late st Contact Info) Description 05/26/2025 External Device Data ST[facility] ABSTRACTION Provider, Abstract NO ADDRESS ON FILE Social History Tobacco Use Types Packs/Day Years Used Date Smoking Tobacco: Never Passive Smoke Exposure: Never Smokeless Tobacco: Never Alcohol Use Standard Drinks/Week Comments No 0 (1 standard drink = 0.6 oz pur e alcohol) Comments No Sex and Gender Information Value Date Recorded Sex Assigned at Not on file Legal Sex Female 6:02 AM METAL SASH SETTER Gender Identity Not on file Sexual Orientation Not on file documented as of this encounter Plan of Treatment Upcoming Encounters Date Type Department Care Team (Late st Contact Info) Description 01/28/2026 9:40 AM CDT [facility] [place] [address] [address] Alexander Rosas MD [address] [place] [address] 01/28/2026 10:00 AM CDT Procedure visit [facility] [place] [address] [address] documented as of this encounter Visit Diagnoses Not on filedocumented in this encounter Care Teams Drink Mixer Relationship Specialty Start Date End Date Neel Harris MD [address] [phone] PCP - General 06/26/06 documented as of this encounter
--- OUTSIDE RECORDS SUMMARY | 2025-05-29 04:48 | XMS_ITS | Encounter Summary ---
Author Organization [facility] Address [address] [place] [address] Care Team Providers Care Dietary Aide Teacher Name Role Phone Neel Harris MD Primary Care Provider +1- [phone] Encounter Details Date Type Department Care Team (Latest Contact Info) Description 07/31/2007 [facility] [address] [place] [phone] Zachary Gamino MD NO ADDRESS ON FILE Other Screening Mammogram (Primary Dx) Social History Tobacco Use Types Packs/Day Years Used Date Smoking Tobacco: Never Assessed Comments Unknown Sex and Gender Information Value Date Recorded Sex Assigned at Not on file Legal Sex Female 5:28 AM CVIR TECH Gender Identity Not on file Sexual Orientation Not on file documented as of this encounter Plan of Treatment Not on file documented as of this encounter Visit Diagnoses Diagnosis Other screening mammogram- Primary documented in this encounter Care Teams Dietary Aide Teacher Relationship Specialty Start Date End Date Neel Harris MD [address] [place] [phone] PCP - General 06/26/06 documented as of this encounter
--- OUTSIDE RECORDS SUMMARY | 2025-05-29 04:48 | XMS_ITS | Encounter Summary ---
Author Organization [facility] Address [address] [place] [address] Care Team Providers Care Paint Striping Machine Operator Name Role Phone Neel Harris MD Primary Care Provider +1- [phone] Encounter Details Date Type Department Care Team (Latest Contact Info) Description 06/23/2004 [facility]patient [facility] [address] [place] [address] Zachary Gamino MD NO ADDRESS ON FILE SCREENING MAMM-MAILG NEOPL-OTHER (Primary Dx) Social History Tobacco Use Types Packs/Day Years Used Date Smoking Tobacco: Never Assessed Comments Unknown Sex and Gender Information Value Date Recorded Sex Assigned at Not on file Legal Sex Female 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
--- OUTSIDE RECORDS SUMMARY | 2025-05-29 04:48 | XMS_ITS | Encounter Summary ---
Author Organization [facility] Address [address] [place] [address] Care Team Providers Care Cover Cutter Name Role Phone Neel Harris MD Primary Care Provider +1- [phone] Encounter Details Date Type Department Care Team (Latest Contact Info) Description 09/07/1998 Outpatient Historical [facility] Carroll Hansen NO ADDRESS ON FILE Swelling or mass of eye (Primary Dx); Urticaria, unspecified; Spasm of muscle Social History Tobacco Use Types Packs/Day Years Used Date Smoking Tobacco: Never Assessed Comments Unknown Sex and Gender Information Value Date Recorded Sex Assigned at Not on file Legal Sex Female 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
--- OUTSIDE RECORDS SUMMARY | 2025-05-29 04:48 | XMS_ITS | Encounter Summary ---
Author Organization [facility] Address [address] [place] [address] Care Team Providers Care Project Management Professor Name Role Phone Neel Harris MD Primary Care Provider +1- [phone] Encounter Details Date Type Department Care Team (Latest Contact Info) Description 07/24/2002 Outpatient Historical [facility] Gastroenterology- [place] [address] [facility] [address] [place] [address] Mark Seals MD [address] [facility] [address] [place] [phone] ABNORMAL LIVER FUNCTION STUDY (Primary Dx) Social History Tobacco Use Types Packs/Day Years Used Date Smoking Tobacco: Never Assessed Comments Unknown Sex and Gender Information Value Date Recorded Sex Assigned at Not on file Legal 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
--- OUTSIDE RECORDS SUMMARY | 2025-05-29 04:48 | XMS_ITS | Encounter Summary ---
Author Organization [facility] Address [address] [place] [address] Care Team Providers Care Machine Silver Stripper Name Role Phone Neel Harris MD Primary Care Provider +1- [phone] Encounter Details Date Type Department Care Team (Latest Contact Info) Description 11/04/2000 Outpatient Historical [facility] Carroll Hansen NO ADDRESS ON FILE Type II or unspecified type diabetes mellitus without mention of complication, not stated as uncontrolled (Primary Dx) Social History Tobacco Use Types Packs/Day Years Used Date Smoking Tobacco: Never Assessed Comments Unknown Sex and Gender Information Value Date Recorded Sex Assigned at Not on file Legal Sex Female 5: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
--- OUTSIDE RECORDS SUMMARY | 2025-05-29 04:48 | XMS_ITS | Encounter Summary ---
Author Organization [facility] Address [address] [place] [address] Care Team Providers Care Participant Administrator Name Role Phone Neel Harris MD Primary Care Provider +1- [phone] Encounter Details Date Type Department Care Team (Latest Contact Info) Description 04/15/2007 Outpatient Historical [facility] [address] [place] [address] [place] [address] Angie Escudero FNP [address] [address] [address] [place] [address] Cervicalgia (Primary Dx) Social History Tobacco Use Types Packs/Day Years Used Date Smoking Tobacco: Never Assessed Comments Unknown Sex and Gender Information Value Date Recorded Sex Assigned at Not on file Legal Sex Female 5: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
--- OUTSIDE RECORDS SUMMARY | 2025-05-29 04:48 | XMS_ITS | Encounter Summary ---
Author Organization [facility] Address [address] [place] [address] Care Team Providers Care Video Tape Editor Name Role Phone Neel Harris MD Primary Care Provider +1- [phone] Encounter Details Date Type Department Care Team (Latest Contact Info) Description 04/05/2003 Outpatient Historical [facility] Milton Brandon Jr., MD [address] [place] [address] Premenstrual tension (Primary Dx); FEVER; DIABETES UNCOMPL ADULT-TYPE II ([facility]) Social History Tobacco Use Types Packs/Day Years Used Date Smoking Tobacco: Never Assessed Comments Unknown Sex and Gender Information Value Date Recorded Sex Assigned at Not on file Legal Sex Female 5:28 AM SPECIAL EVENTS COORDINATOR Gender Identity Not on file Sexual Orientation Not on file documented as of this encounter Plan of Treatment Not on file documented as of this encounter Visit Diagnoses Diagnosis Premenstrual tension- Primary Premenstrual tension syndromes Fever and other physiologic disturbances of temperature regulation Type II or unspecified type diabetes mellitus without mention of complication, not stated as uncontrolled documented in this encounter Care Teams Video Tape Editor Relationship Specialty Start Date End Date Neel Harris MD [address] [place] [phone] PCP - General 06/26/06 documented as of this encounter
--- OUTSIDE RECORDS SUMMARY | 2025-05-29 04:48 | XMS_ITS | Encounter Summary ---
Author Organization [facility] Address [address] [place] [address] Care Team Providers Care Passenger Relations Representative Name Role Phone Neel Harris MD Primary Care Provider +1- [phone] Encounter Details Date Type Department Care Team (Latest Contact Info) Description 06/27/2001 Outpatient Historical [facility] Milton Brandon Jr., MD [address] [place] [phone] Type II or unspecified type diabetes mellitus without mention of complication, not stated as uncontrolled (Primary Dx); Unspecified adjustment reaction; Unspecified essential hypertension; Obesity, unspecified Social History Tobacco Use Types Packs/Day Years Used Date Smoking Tobacco: Never Assessed Comments Unknown Sex and Gender Information Value Date Recorded Sex Assigned at Not on file Legal Sex Female 5:28 AM MIXER AND SCALER Gender Identity Not on file Sexual Orientation Not on file documented as of this encounter Plan of Treatment Not on file documented as of this encounter Visit Diagnoses Diagnosis Type II or unspecified type diabetes mellitus without mention of complication, not stated as uncontrolled- Primary Unspecified adjustment reaction Unspecified essential hypertension Obesity, unspecified documented in this encounter Care Teams Passenger Relations Representative Relationship Specialty Start Date End Date Neel Harris MD [address] [place] [phone] PCP - General 06/26/06 documented as of this encounter
--- OUTSIDE RECORDS SUMMARY | 2025-05-29 04:48 | XMS_ITS | Encounter Summary ---
Author Organization [facility] Address [address] [place] [address] Care Team Providers Care Front Elevator Operator Name Role Phone Neel Harris MD Primary Care Provider +1- [phone] Encounter Details Date Type Department Care Team (Late st Contact Info) Description 10/02/[address] [facility] Abisai Sapp Hart [address] [place] [address] Zachary Gamino MD NO ADDRESS ON FILE Other Screening Mammogram Social History Tobacco Use Types Packs/Day Years Used Date Smoking Tobacco: Never Assessed Comments Unknown Sex and Gender Information Value Date Recorded Sex Assigned at Not on file Legal Sex Female 5:28 AM FINANCIAL ADMINISTRATION OFFICER Gender Identity Not on file Sexual Orientation Not on file documented as of this encounter Plan of Treatment Not on file documented as of this encounter Results * MAMMO SCREENING BILAT (11/11/2008 3:28 PM FINANCIAL ADMINISTRATION OFFICER) Anatomical Region Laterality Modality Breast Bilateral Mammography Narrative 11/12/2008 10:38 AM FINANCIAL ADMINISTRATION OFFICER Bilateral Mammogram Reason for Exam: Screening Comparison: Comparison is made with the prior exam(s) dated 11.06.05 Findings: Bilateral CC and MLO views were obtained. This examination was reviewed with the aid of a computer-aided detection system(CAD). The breast tissue is dense. Calcifications are noted on the left. No significant new findings since the prior mammogram(s). Procedure Note Amy Shen MD - 11/12/2008 Bilateral Mammogram Reason for Exam: Screening Comparison: Comparison is made with the prior exam(s) dated 11.06.05 Findings: Bilateral CC and MLO views were obtained. This examination was reviewed with the aid of a computer-aided detectionsystem(CAD). The breast tissue is dense. Calcifications are noted on the left. No significant new findings since the prior mammogram(s). Zachary Gamino MD MAMMO ORDERABLES Final Result documented in this encounter Visit Diagnoses Diagnosis Other screening mammogram Other screening mammogram documented in this encounter Care Teams Front Elevator Operator Relationship Specialty Start Date End Date Neel Harris MD [address] [phone] PCP - General 06/26/06 documented as of this encounter
--- OUTSIDE RECORDS SUMMARY | 2025-05-29 04:48 | XMS_ITS | Encounter Summary ---
Author Organization [facility] Address [address] [facility] Attn: Epic Prelude ADT JACQUELYN MCGRAW [address] Care Team Providers Care Fence Erector Supervisor Name Role Phone Neel Harris MD Primary Care Provider +1- [phone] Encounter Details Date Type Department Care Team (Latest Contact Info) Description 05/04/2002 Emergency Wiegers III, Edward G, DO NO ADDRESS ON FILE Social History Tobacco Use Types Packs/Day Years Used Date Smoking Tobacco: Never Assessed Comments Unknown Sex and Gender Information Value Date Recorded Sex Assigned at Not on file Legal Sex Female 5:28 AM DISK SANDER Gender Identity Not on file Sexual Orientation Not on file documented as of this encounter Plan of Treatment Not on file documented as of this encounter Visit Diagnoses Not on filedocumented in this encounter Care Teams Fence Erector Supervisor Relationship Specialty Start Date End Date Neel Harris MD [address] [place] [phone] PCP - General 06/26/06 documented as of this encounter
--- OUTSIDE RECORDS SUMMARY | 2025-05-29 04:48 | XMS_ITS | Encounter Summary ---
Author Organization [facility] Address [address] [place] [address] Care Team Providers Care Coordinator Integrated Marketing Name Role Phone Neel Harris MD Primary Care Provider +1- [phone] Encounter Details Date Type Department Care Team (Latest Contact Info) Description 01/22/[address] [facility] [address] [place] [address] Angie Escudero FNP [address] [address] [address] [place] [address] Cervical Spondylosis without Myelopathy (Primary Dx) Social History Tobacco Use Types Packs/Day Years Used Date Smoking Tobacco: Never Assessed Comments Unknown Sex and Gender Information Value Date Recorded Sex Assigned at Not on file Legal Sex Female 5:28 AM BILLET INSPECTOR Gender Identity Not on file Sexual Orientation Not on file documented as of this encounter Plan of Treatment Not on file documented as of this encounter Visit Diagnoses Diagnosis Cervical spondylosis without myelopathy- Primary documented in this encounter Care Teams Coordinator Integrated Marketing Relationship Specialty Start Date End Date Neel Harris MD [address] [place] [phone] PCP - General 06/26/06 documented as of this encounter
--- OUTSIDE RECORDS SUMMARY | 2025-05-29 04:48 | XMS_ITS | Encounter Summary ---
Author Organization [facility] Address [address] [place] [address] Care Team Providers Care Paper Bag Making Machinist Name Role Phone Neel Harris MD Primary Care Provider +1- [phone] Encounter Details Date Type Department Care Team (Latest Contact Info) Description 07/24/1999 Outpatient Historical [facility] Carroll Hansen NO ADDRESS ON FILE Other malaise and fatigue (Primary Dx); Unspecified essential hypertension; Urticaria, unspecified Social History Tobacco Use Types Packs/Day Years Used Date Smoking Tobacco: Never Assessed Comments Unknown Sex and Gender Information Value Date Recorded Sex Assigned at Not on file Legal Sex Female 5:28 AM CHIEF OF HARBOR PATROL Gender Identity Not on file Sexual Orientation Not on file documented as of this encounter Plan of Treatment Not on file documented as of this encounter Visit Diagnoses Diagnosis Other malaise and fatigue- Primary Unspecified essential hypertension Urticaria, unspecified documented in this encounter Care Teams Paper Bag Making Machinist Relationship Specialty Start Date End Date Neel Harris MD [address] [place] [phone] PCP - General 06/26/06 documented as of this encounter
--- OUTSIDE RECORDS SUMMARY | 2025-05-29 04:48 | XMS_ITS | Encounter Summary ---
Author Organization [facility] Address [address] [facility] [address] 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
--- OUTSIDE RECORDS SUMMARY | 2025-05-29 04:48 | XMS_ITS | Encounter Summary ---
Author Organization [facility] Address [address] [place] [address] Care Team Providers Care Pullman Car Clerk Name Role Phone Neel Harris MD Primary Care Provider +1- [phone] Encounter Details Date Type Department Care Team (Late st Contact Info) Description 07/31/2007 Outpatient Historical [facility] [address] [place] [phone] Amy Shen MD NO ADDRESS ON FILE Other Screening Mammogram (Primary Dx) Social History Tobacco Use Types Packs/Day Years Used Date Smoking Tobacco: Never Assessed Comments Unknown Sex and Gender Information Value Date Recorded Sex Assigned at Not on file Legal Sex Female 5:28 AM DRAFTING LAYOUT MAN Gender Identity Not on file Sexual Orientation Not on file documented as of this encounter Plan of Treatment Not on file documented as of this encounter Visit Diagnoses Diagnosis Other screening mammogram- Primary documented in this encounter Care Teams Pullman Car Clerk Relationship Specialty Start Date End Date Neel Harris MD [address] [place] [phone] PCP - General 06/26/06 documented as of this encounter
--- OUTSIDE RECORDS SUMMARY | 2025-05-29 04:48 | XMS_ITS | Patient Health Record ---
Author Organization [facility] Address [address] [place], [place] [id number] Care Team Providers Care Marketing Services Coordinator Name Role Phone Thuan Harris MD Primary Care Provider Regan Jolley MD [phone] Allergies Allergen (clinical drug ingredient) Drug/Non Drug Allergy documented on EMR Reaction Allergy Type Onset Date Status povidone-iodine betadine (uncoded) rash, hives Allergy Active narcotics (uncoded) nausea Allergy Active NSAIDS (uncoded) Unknown Allergy Act tate codeine codeine Unknown Drug Allergy Active simvastatin simvastatin Unknown Drug Allergy Act tate Avandamet Unknown Drug Allergy Active Reason For Referral No Information Medications Medication SIG (Take, Route, Frequency, Duration) Notes Start Date End Date Status glyburide-metformin 5 mg-500 mg 2 tabs orally 2 times a day; Duration: 30 day(s) Active hydrochlorothiazide-lisino pril 12.5 mg-10 mg 1 tab orally once a day; Duration: 30 day(s) Active levothyroxine 150 mcg (0.15 mg) 1 tab orally once a day; Duration: 30 day(s) Active Dexilant 60 mg 1 cap orally once a day; Duration: 30 day(s) Active chlordiazepoxide-clidinium 5 mg-2.5 mg 1 cap orally 4 TID, PRN Acti ve ZyrTEC 10 mg 1 tab orally once a day Active Premarin Vaginal 0.625 mg/g 1 g intravaginally as directed; Duration: 21 day(s) Active Combipatch 0.05 mg-0.25 mg/24 hours 1 PATCH applied topically 2 times a week; Duration: 28 day(s) Active Problems Problem Type SNOMED Code ICD Code Onset Dates Problem Status W/U Status Risk Notes Problem Spasm (91032886) Muscle spasm (728.85) Active confirmed Problem Hypersomnia (06056478) Hypersomnia (780.54) Active confirmed Problem Neck pain (02562734) Neck pain (723.1) Active confirmed Problem Displacement of lumbar intervertebral disc without myelopathy (22097634) Lumbar (w/out myelopathy) intervertebral disc disorder (722.10) Active confirmed Problem Lumbosacral spondylosis without myelopathy (03366999) Lumbosacral spondylosis without myelopathy (721.3) Active confirmed Problem Long-term drug therapy (339537341) LONG-TERM USE MEDS NEC (V58.69) Active confirmed r/o substance abuse Problem Anxiety state (576598061) Anxiety State, other, specified: procedure related (300.09) Active confirmed Problem Sacroiliitis (27997892) Sacroiliitis (720.2) Active confirmed Problem Lumbar post-laminectomy syndrome (490959045) Postlaminectomy syndrome of lumbar region (722.83) Active confirmed Problem Low back pain (481361976) Low back pain (724.2) Active confirmed Plan Of Treatment No Information Insurance Providers Payer Name Payer Address Payer Phone Subscriber Number Group Number Insured Name Patient Relationship to Insured Coverage Start Date Coverage End Date [facility] [address] [place] [address] [phone] [id number] Dionne Lu Self - patient is the insured Medical (General) History Medical History History ICD Code Back pain Gastroesophageal reflux disease Hypertension Type II diabetes Hypothyroidism Hypercholesterolemia Seasonal allergies Fatty liver Joint pain Neck pain Arm pain Shoulder pain Spondylosis, cervical Radiculopathy Spinal stenosis, lumbar Morbid obesity Diabetes mellitus Irritable bowel syndrome Arthritis Surgical History Surgery Date(Month/Year) Cervical fusion 07/04/2007 Cholecystectomy Colonoscopy Rotator cuff tear repair, right 08/2007 Oophorectomy Back surgery (L4-L5 fusion) 08/11/2010 Hospitalization History Reason Date(Month/Year) stomach pain
--- OUTSIDE RECORDS SUMMARY | 2025-05-29 04:48 | XMS_ITS | Encounter Summary ---
Author Organization [facility] Address [address] [place] [address] Care Team Providers Care Chemical Machine Tender Name Role Phone Neel Harris MD Primary Care Provider +1- [phone] Encounter Details Date Type Department Care Team (Latest Contact Info) Description 02/19/2002 Outpatient Historical [facility] Milton Brandon Jr., MD [address] [place] [address] HYPOTHYROIDISM NOS (Primary Dx); DIABETES UNCOMPL ADULT-TYPE II (CMS/HCC); HYPERLIPIDEMIA NEC/NOS; [facility] RADIO OPERATOR USE MEDICATN Social History Tobacco Use Types Packs/Day Years Used Date Smoking Tobacco: Never Assessed Comments Unknown Sex and Gender Information Value Date Recorded Sex Assigned at Not on file Legal Sex Female 5:28 AM SENIOR STATISTICIAN Gender Identity Not on file Sexual Orientation Not on file documented as of this encounter Plan of Treatment Not on file documented as of this encounter Visit Diagnoses Diagnosis Unspecified hypothyroidism- Primary Type II or unspecified type diabetes mellitus without mention of complication, not stated as uncontrolled Other and unspecified hyperlipidemia Encounter for long-term (current) use of other medications documented in this encounter Care Teams Chemical Machine Tender Relationship Specialty Start Date End Date Neel Harris MD [address] [phone] PCP - General 06/26/06 documented as of this encounter
--- OUTSIDE RECORDS SUMMARY | 2025-05-29 04:48 | XMS_ITS | Encounter Summary ---
Author Organization [facility] Address [address] [place] [address] Care Team Providers Care Supervisor Metal Placing Name Role Phone Neel Harris MD Primary Care Provider +1- [phone] Encounter Details Date Type Department Care Team (Latest Contact Info) Description 06/10/2000 Outpatient Historical [facility] Carroll Hansen NO ADDRESS ON FILE Sleep disturbance, unspecified (Primary Dx); Unspecified hypothyroidism Social History Tobacco Use Types Packs/Day Years Used Date Smoking Tobacco: Never Assessed Comments Unknown Sex and Gender Information Value Date Recorded Sex Assigned at Not on file Legal Sex Female 5:28 AM CUSTOMER 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
--- OUTSIDE RECORDS SUMMARY | 2025-05-29 04:48 | XMS_ITS | Encounter Summary ---
Author Organization [facility] Address [address] [place] [address] Care Team Providers Care Mobile Engineer Name Role Phone Neel Harris MD Primary Care Provider +1- [phone] Encounter Details Date Type Department Care Team (Latest Contact Info) Description 12/30/2000 Outpatient Historical [facility] [address] [place] [address] Albino Adair MD NO ADDRESS ON FILE Screening mammogram for high-risk patient (Primary Dx); Other specified personal history presenting hazards to health(V15.89) Social History Tobacco Use Types Packs/Day Years Used Date Smoking Tobacco: Never Assessed Comments Unknown Sex and Gender Information Value Date Recorded Sex Assigned at Not on file Legal Sex Female 5:28 AM TECHNICAL INSPECTOR Gender Identity Not on file Sexual Orientation Not on file documented as of this encounter Plan of Treatment Not on file documented as of this encounter Visit Diagnoses Diagnosis Screening mammogram for high-risk patient- Primary Other specified personal history presenting hazards to health(V15.89) Other specified personal history presenting hazards to health documented in this encounter Care Teams Mobile Engineer Relationship Specialty Start Date End Date Neel Harris MD [address] [place] [phone] PCP - General 06/26/06 documented as of this encounter
--- OUTSIDE RECORDS SUMMARY | 2025-05-29 04:48 | XMS_ITS | Encounter Summary ---
Author Organization [facility] Address [address] [place] [address] Care Team Providers Care Floor Finisher Name Role Phone Neel Harris MD Primary Care Provider +1- [phone] Encounter Details Date Type Department Care Team (Latest Contact Info) Description 05/14/2003 Outpatient [facility] [address] [place] [address] Albino Adair MD NO ADDRESS ON FILE SCREENING MAMM-MAILG NEOPL-OTHER (Primary Dx) Social History Tobacco Use Types Packs/Day Years Used Date Smoking Tobacco: Never Assessed Comments Unknown Sex and Gender Information Value Date Recorded Sex Assigned at Not on file Legal Sex Female 5:28 AM GRAIN ROASTER Gender Identity Not on file Sexual Orientation Not on file documented as of this encounter Plan of Treatment Not on file documented as of this encounter Visit Diagnoses Diagnosis Other screening mammogram- Primary documented in this encounter Care Teams Floor Finisher Relationship Specialty Start Date End Date Neel Harris MD [address] [place] [phone] PCP - General 06/26/06 documented as of this encounter
--- OUTSIDE RECORDS SUMMARY | 2025-05-29 04:48 | XMS_ITS | Encounter Summary ---
Author Organization [facility] Address [address] [place] [address] Care Team Providers Care Epic Trainer Name Role Phone Neel Harris MD Primary Care Provider +1- [phone] Encounter Details Date Type Department Care Team (Latest Contact Info) Description 01/03/2001 Outpatient Historical [facility] Carroll Hansen NO ADDRESS ON FILE Other and unspecified hyperlipidemia (Primary Dx); Unspecified hypothyroidism; Type II or unspecified type diabetes mellitus without mention of complication, not stated as uncontrolled Social History Tobacco Use Types Packs/Day Years Used Date Smoking Tobacco: Never Assessed Comments Unknown Sex and Gender Information Value Date Recorded Sex Assigned at Not on file Legal Sex Female 5:28 AM FIELD CROP GROWER Gender Identity Not on file Sexual Orientation Not on file documented as of this encounter Plan of Treatment Not on file documented as of this encounter Visit Diagnoses Diagnosis Other and unspecified hyperlipidemia- Primary Unspecified hypothyroidism Type II or unspecified type diabetes mellitus without mention of complication, not stated as uncontrolled documented in this encounter Care Teams Epic Trainer Relationship Specialty Start Date End Date Neel Harris MD [address] [phone] PCP - General 06/26/06 documented as of this encounter
--- OUTSIDE RECORDS SUMMARY | 2025-05-29 04:48 | XMS_ITS | Encounter Summary ---
Author Organization [facility] Address [address] [place] [address] Care Team Providers Care Diesel Dragline Operator Name Role Phone Neel Harris MD Primary Care Provider +1- [phone] Encounter Details Date Type Department Care Team (Latest Contact Info) Description 01/06/2001 Outpatient Historical [facility] Carroll Hansen NO ADDRESS ON FILE Type II or unspecified type diabetes mellitus without mention of complication, not stated as uncontrolled (Primary Dx); Unspecified hypothyroidism; Screening for lipoid disorders Social History Tobacco Use Types Packs/Day Years Used Date Smoking Tobacco: Never Assessed Comments Unknown Sex and Gender Information Value Date Recorded Sex Assigned at Not on file Legal Sex Female 5:28 AM SIGNALS INTELLIGENCE ANALYST Gender Identity Not on file Sexual Orientation Not on file documented as of this encounter Plan of Treatment Not on file documented as of this encounter Visit Diagnoses Diagnosis Type II or unspecified type diabetes mellitus without mention of complication, not stated as uncontrolled- Primary Unspecified hypothyroidism Screening for lipoid disorders documented in this encounter Care Teams Diesel Dragline Operator Relationship Specialty Start Date End Date Neel Harris MD [address] [phone] PCP - General 06/26/06 documented as of this encounter
--- OUTSIDE RECORDS SUMMARY | 2025-05-29 04:48 | XMS_ITS | Encounter Summary ---
Author Organization [facility] Address [address] [place] [address] Care Team Providers Care Direct Selling Counselor Name Role Phone Neel Harris MD Primary Care Provider +1- [phone] Encounter Details Date Type Department Care Team (Latest Contact Info) Description 03/04/2007 Outpatient Historical [facility] [address] [place] [address] Ian Patterson MD NO ADDRESS ON FILE Cervical Disc Displacmnt (Primary Dx); Brachial Neuritis or Radiculitis NOS; Degeneration of Cervical Intervertebral Disc Social History Tobacco Use Types Packs/Day Years Used Date Smoking Tobacco: Never Assessed Comments Unknown Sex and Gender Information Value Date Recorded Sex Assigned at Not on file Legal Sex Female 5:28 AM SET ILLUSTRATOR Gender Identity Not on file Sexual Orientation Not on file documented as of this encounter Plan of Treatment Not on file documented as of this encounter Visit Diagnoses Diagnosis Cervical disc displacmnt- Primary Displacement of cervical intervertebral disc without myelopathy Brachial neuritis or radiculitis NOS Brachial neuritis or radiculitis nos Degeneration of cervical intervertebral disc documented in this encounter Care Teams Direct Selling Counselor Relationship Specialty Start Date End Date Neel Harris MD [address] [place] [phone] PCP - General 06/26/06 documented as of this encounter
--- OUTSIDE RECORDS SUMMARY | 2025-05-29 04:48 | XMS_ITS | Encounter Summary ---
Author Organization [facility] Address [address] [place] [address] Care Team Providers Care Online Advertising Manager Name Role Phone Neel Harris MD Primary Care Provider +1- [phone] Encounter Details Date Type Department Care Team (Latest Contact Info) Description 05/06/2001 Outpatient Historical [facility] Carroll Hansen NO ADDRESS ON FILE Dyspepsia and other specified disorders of function of stomach (Primary Dx) Social History Tobacco Use Types Packs/Day Years Used Date Smoking Tobacco: Never Assessed Comments Unknown Sex and Gender Information Value Date Recorded Sex Assigned at Not on file Legal Sex Female 5:28 AM 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
--- OUTSIDE RECORDS SUMMARY | 2025-05-29 04:48 | XMS_ITS ---
Author Organization Unknown Immunizations Date Vaccine DateAdministered TimeAdministered VaccineCode Dose Strength Unit Per Diem Interpreter DueDate CptCode CvxCode ManufacturerCode LocationCode AdministeredBy 2024 12:00 :00 AM RSV, bivalent , protein subunit RSVpreF, diluent reconsti tuted, 0.5 mL, PF 07/23/2024 12:00:00 AM 0000 0.500 000 mL mL 305
--- OUTSIDE RECORDS SUMMARY | 2025-05-29 04:48 | XMS_ITS | Encounter Summary ---
Author Organization [facility] Address [address] [place] [address] Care Team Providers Care Brazing Machine Feeder Name Role Phone Neel Harris MD Primary Care Provider +1- [phone] Encounter Details Date Type Department Care Team (Late st Contact Info) Description 05/14/2003 Outpatient Historical [facility] [place] [address] [place] [address] Zachary Gamino MD NO ADDRESS ON FILE Social History Tobacco Use Types Packs/Day Years Used Date Smoking Tobacco: Never Assessed Comments Unknown Sex and Gender Information Value Date Recorded Sex Assigned at Not on file Legal Sex Female 5:28 AM HOSE SEAMER Gender Identity Not on file Sexual Orientation Not on file documented as of this encounter Plan of Treatment Not on file documented as of this encounter Visit Diagnoses Not on filedocumented in this encounter Care Teams Brazing Machine Feeder Relationship Specialty Start Date End Date Neel Harris MD [address] [place] [phone] PCP - General 06/26/06 documented as of this encounter
--- OUTSIDE RECORDS SUMMARY | 2025-05-29 04:48 | XMS_ITS | Encounter Summary ---
Author Organization [facility] Address [address] [place] [address] Care Team Providers Care Central Stores Attendant Name Role Phone Neel Harris MD Primary Care Provider +1- [phone] Encounter Details Date Type Department Care Team (Latest Contact Info) Description 04/20/2002 Outpatient Historical [facility] [address] [place] [address] Zachary Gamino MD NO ADDRESS ON FILE Gynecologic examination (Primary Dx) Social History Tobacco Use Types Packs/Day Years Used Date Smoking Tobacco: Never Assessed Comments Unknown Sex and Gender Information Value Date Recorded Sex Assigned at Not on file Legal Sex Female 5:28 AM PLATE DEVELOPER Gender Identity Not on file Sexual Orientation Not on file documented as of this encounter Plan of Treatment Not on file documented as of this encounter Visit Diagnoses Diagnosis Gynecologic examination- Primary Gynecological examination documented in this encounter Care Teams Central Stores Attendant Relationship Specialty Start Date End Date Neel Harris MD [address] [place] [phone] PCP - General 06/26/06 documented as of this encounter
--- OUTSIDE RECORDS SUMMARY | 2025-05-29 04:48 | XMS_ITS | Encounter Summary ---
Author Organization [facility] Address [address] [place] [address] Care Team Providers Care Parking Enforcement Officer Name Role Phone Neel Harris MD Primary Care Provider +1- [phone] Encounter Details Date Type Department Care Team (Latest Contact Info) Description 06/24/2002 Outpatient Historical [facility] [address] [place] [address] Zachary Gamino MD NO ADDRESS ON FILE Benign gillian ovary (Primary Dx); LIPOMA SKIN NEC Social History Tobacco Use Types Packs/Day Years Used Date Smoking Tobacco: Never Assessed Comments Unknown Sex and Gender Information Value Date Recorded Sex Assigned at Not on file Legal Sex Female 5:28 AM PLASMA PROCESSING TECHNICIAN Gender Identity Not on file Sexual Orientation Not on file documented as of this encounter Plan of Treatment Not on file documented as of this encounter Visit Diagnoses Diagnosis 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
--- OUTSIDE RECORDS SUMMARY | 2025-05-29 04:48 | XMS_ITS | Encounter Summary ---
Author Organization [facility] Address [address] [place] [address] Care Team Providers Care Nurse Outreach Case Manager Name Role Phone Neel Harris MD Primary Care Provider +1- [phone] Encounter Details Date Type Department Care Team (Latest Contact Info) Description 04/18/1999 Outpatient Historical [facility] [address] [place] [address] Zachary Gamino MD NO ADDRESS ON FILE Vaginitis and vulvovaginitis, unspecified (Primary Dx) Social History Tobacco Use Types Packs/Day Years Used Date Smoking Tobacco: Never Assessed Comments Unknown Sex and Gender Information Value Date Recorded Sex Assigned at Not on file Legal Sex Female 5:28 AM DEAD MAIL CHECKER Gender Identity Not on file Sexual Orientation Not on file documented as of this encounter Plan of Treatment Not on file documented as of this encounter Visit Diagnoses Diagnosis Vaginitis and vulvovaginitis, unspecified- Primary documented in this encounter Care Teams Nurse Outreach Case Manager Relationship Specialty Start Date End Date Neel Harris MD [address] [phone] PCP - General 06/26/06 documented as of this encounter
--- OUTSIDE RECORDS SUMMARY | 2025-05-29 04:48 | XMS_ITS | Encounter Summary ---
Author Organization [facility] Address [address] [place] [address] Care Team Providers Care Credit Union Manager Name Role Phone Neel Harris MD Primary Care Provider +1- [phone] Encounter Details Date Type Department Care Team (Latest Contact Info) Description 04/22/[address] [facility] Milton Brandon Jr., MD [address] [place] [address] SCREENING MAL NEOP-RECTUM (Primary Dx) Social History Tobacco Use Types Packs/Day Years Used Date Smoking Tobacco: Never Assessed Comments Unknown Sex and Gender Information Value Date Recorded Sex Assigned at Not on file Legal Sex Female 5:28 AM DRY FOOD PRODUCTS MIXER Gender Identity Not on file Sexual Orientation Not on file documented as of this encounter Plan of Treatment Not on file documented as of this encounter Visit Diagnoses Diagnosis Screening for malignant neoplasm of the rectum- Primary documented in this encounter Care Teams Credit Union Manager Relationship Specialty Start Date End Date Neel Harris MD [address] [phone] PCP - General 06/26/06 documented as of this encounter
--- OUTSIDE RECORDS SUMMARY | 2025-05-29 04:48 | XMS_ITS | Encounter Summary ---
Author Organization [facility] Address [address] [place] [address] Care Team Providers Care Dramatic Agent Name Role Phone Neel Harris MD Primary Care Provider +1- [phone] Encounter Details Date Type Department Care Team (Latest Contact Info) Description 03/18/2007 Outpatient Historical [facility] [address] [place] [address] Ian Patterson MD NO ADDRESS ON FILE Brachial Neuritis or Radiculitis NOS (Primary Dx); Cervicalgia; Cervical Disc Displacmnt Social History Tobacco Use Types Packs/Day Years Used Date Smoking Tobacco: Never Assessed Comments Unknown Sex and Gender Information Value Date Recorded Sex Assigned at Not on file Legal Sex Female 5:28 AM PLUG AND MOLD FINISHER Gender Identity Not on file Sexual Orientation Not on file documented as of this encounter Plan of Treatment Not on file documented as of this encounter Visit Diagnoses Diagnosis Brachial neuritis or radiculitis NOS- Primary Brachial neuritis or radiculitis nos Cervicalgia Cervical disc displacmnt Displacement of cervical intervertebral disc without myelopathy documented in this encounter Care Teams Dramatic Agent Relationship Specialty Start Date End Date Neel Harris MD [address] [place] [phone] PCP - General 06/26/06 documented as of this encounter
--- OUTSIDE RECORDS SUMMARY | 2025-05-29 04:48 | XMS_ITS | Encounter Summary ---
Author Organization [facility] Address [address] [place] [address] Care Team Providers Care Breaker Table Worker Name Role Phone Neel Harris MD Primary Care Provider +1- [phone] Encounter Details Date Type Department Care Team (Latest Contact Info) Description 05/06/2002 Outpatient Historical [facility] Milton Brandon Jr., MD [address] [place] [address] DIABETES UNCOMPL ADULT-TYPE II (CMS/HCC) (Primary Dx) Social History Tobacco Use Types Packs/Day Years Used Date Smoking Tobacco: Never Assessed Comments Unknown Sex and Gender Information Value Date Recorded Sex Assigned at Not on file Legal Sex Female 5:28 AM DESIGN ENGINEERING TECHNICIAN Gender Identity Not on file Sexual Orientation Not on file documented as of this encounter Plan of Treatment Not on file documented as of this encounter Visit Diagnoses Diagnosis Type II or unspecified type diabetes mellitus without mention of complication, not stated as uncontrolled- Primary documented in this encounter Care Teams Breaker Table Worker Relationship Specialty Start Date End Date Neel Harris MD [address] [phone] PCP - General 06/26/06 documented as of this encounter
--- OUTSIDE RECORDS SUMMARY | 2025-05-29 04:48 | XMS_ITS | Encounter Summary ---
Author Organization [facility] Address [address] [place] [address] Care Team Providers Care Gas Torch Brazier Name Role Phone Neel Harris MD Primary Care Provider +1- [phone] Encounter Details Date Type Department Care Team (Latest Contact Info) Description 05/05/2002 Outpatient Historical [facility] Milton Brandon Jr., MD [address] [place] [address] SCREENING MAL NEOP-SITE NEC (Primary Dx) Social History Tobacco Use Types Packs/Day Years Used Date Smoking Tobacco: Never Assessed Comments Unknown Sex and Gender Information Value Date Recorded Sex Assigned at Not on file Legal Sex Female 5:28 AM CLIENT RENEWAL SPECIALIST Gender Identity Not on file Sexual Orientation Not on file documented as of this encounter Plan of Treatment Not on file documented as of this encounter Visit Diagnoses Diagnosis Special screening for malignant neoplasms of other sites- Primary documented in this encounter Care Teams Gas Torch Brazier Relationship Specialty Start Date End Date Neel Harris MD [address] [place] [phone] PCP - General 06/26/06 documented as of this encounter
--- OUTSIDE RECORDS SUMMARY | 2025-05-29 04:48 | XMS_ITS | Encounter Summary ---
Author Organization [facility] Address [address] [place] [address] Care Team Providers Care Skin Tanner Name Role Phone Neel Harris MD Primary Care Provider +1- [phone] Encounter Details Date Type Department Care Team (Latest Contact Info) Description 05/22/2002 Outpatient [facility] [address] [place] [address] Zachary Gamino MD NO ADDRESS ON FILE Benign gillian ovary (Primary Dx) Social History Tobacco Use Types Packs/Day Years Used Date Smoking Tobacco: Never Assessed Comments Unknown Sex and Gender Information Value Date Recorded Sex Assigned at Not on file Legal Sex Female 5:28 AM MILL LABORER Gender Identity Not on file Sexual Orientation Not on file documented as of this encounter Plan of Treatment Not on file documented as of this encounter Visit Diagnoses Diagnosis 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
--- OUTSIDE RECORDS SUMMARY | 2025-05-29 04:48 | XMS_ITS | Encounter Summary ---
Author Organization [facility] Address [address] [place] [address] Care Team Providers Care Research And Development Specialist Name Role Phone Neel Harris MD Primary Care Provider +1- [phone] Encounter Details Date Type Department Care Team (Latest Contact Info) Description 09/09/2007 Outpatient Historical [facility] 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
--- OUTSIDE RECORDS SUMMARY | 2025-05-29 04:48 | XMS_ITS | Encounter Summary ---
Author Organization [facility] Address [address] [place] [address] Care Team Providers Care Tankage Supervisor Name Role Phone Neel Harris MD Primary Care Provider +1- [phone] Encounter Details Date Type Department Care Team (Latest Contact Info) Description 08/28/2007 Outpatient Historical [facility] [address] [place] [address] Jimmie Everett III, MD [address] [place] [address] Unspecified Disorders of Bursae and Tendons in Shoulder Region (Primary Dx) Social History Tobacco Use Types Packs/Day Years Used Date Smoking Tobacco: Never Assessed Comments Unknown Sex and Gender Information Value Date Recorded Sex Assigned at Not on file Legal Sex Female 5:28 AM DEHYDROGENATION CONVERTER OPERATOR Gender Identity Not on file Sexual Orientation Not on file documented as of this encounter Plan of Treatment Not on file documented as of this encounter Procedures Procedure Name Priority Date/Time Associated Diagnosis Comments POC GLUCOSE Routine 08/28/2007 1:25 PM DEHYDROGENATION CONVERTER OPERATOR POC GLUCOSE Routine 08/28/2007 10:15 AM DEHYDROGENATION CONVERTER OPERATOR documented in this encounter Results * (ABNORMAL) POC GLUCOSE (08/28/2007 1:25 PM DEHYDROGENATION CONVERTER OPERATOR) GLUCOSE POC 129(H) 60 - 100 mg/dL INTERFACE SYSTEM 08/28/2007 1:25 PM DEHYDROGENATION CONVERTER OPERATOR Jimmie Everett III, MD POINT OF CARE TESTING Edited Performing Organization Address City/State/[facility] Co de Phone Number INTERFACE SYSTEM Refer to clinic/hospital department * (ABNORMAL) POC GLUCOSE (08/28/2007 10:15 AM DEHYDROGENATION CONVERTER OPERATOR) GLUCOSE POC 107(H) 60 - 100 mg/dL INTERFACE SYSTEM 08/28/2007 10:1 5 AM DEHYDROGENATION CONVERTER OPERATOR Jimmie Everett III, MD POINT OF CARE TESTING Edited Performing Organization Address [facility] de Phone Number INTERFACE SYSTEM Refer to clinic/hospital department documented in this encounter Visit Diagnoses Diagnosis Disorders of bursae and tendons in shoulder region, unspecified- Primary documented in this encounter Care Teams Tankage Supervisor Relationship Specialty Start Date End Date Neel Harris MD [address] [phone] PCP - General 06/26/06 documented as of this encounter
--- OUTSIDE RECORDS SUMMARY | 2025-05-29 04:48 | XMS_ITS | Encounter Summary ---
Author Organization [facility] Address [address] [place] [address] Care Team Providers Care Plaster Caster Name Role Phone Neel Harris MD Primary Care Provider +1- [phone] Encounter Details Date Type Department Care Team (Latest Contact Info) Description 04/30/2003 Outpatient Historical [facility] Milton Brandon Jr., MD [address] [place] [address] HYPOTHYROIDISM NOS (Primary Dx); DIABETES UNCOMPL ADULT-TYPE II (CMS/HCC); ABNORMAL CLINICAL FINDING NEC; JOINT PAIN-MULT JTS Social History Tobacco Use Types Packs/Day Years Used Date Smoking Tobacco: Never Assessed Comments Unknown Sex and Gender Information Value Date Recorded Sex Assigned at Not on file Legal Sex Female 5:28 AM BOARDER HAND Gender Identity Not on file Sexual Orientation Not on file documented as of this encounter Plan of Treatment Not on file documented as of this encounter Visit Diagnoses Diagnosis Unspecified hypothyroidism- Primary Type II or unspecified type diabetes mellitus without mention of complication, not stated as uncontrolled Other abnormal clinical finding Pain in joint, multiple sites documented in this encounter Care Teams Plaster Caster Relationship Specialty Start Date End Date Neel Harris MD [address] [place] [phone] PCP - General 06/26/06 documented as of this encounter
--- OUTSIDE RECORDS SUMMARY | 2025-05-29 04:48 | XMS_ITS | Encounter Summary ---
Author Organization [facility] Address [address] [place] [address] Care Team Providers Care Anatomy And Physiology Instructor Name Role Phone Neel Harris MD Primary Care Provider +1- [phone] Encounter Details Date Type Department Care Team (Latest Contact Info) Description 04/15/2007 Outpatient Historical [facility] [address] [place] [address] Angie Escudero FNP [address] [address] Cervicalgia (Primary Dx); Brachial Neuritis or Radiculitis NOS; Cervical Spondylosis; Lumbago Social History Tobacco Use Types Packs/Day Years Used Date Smoking Tobacco: Never Assessed Comments Unknown Sex and Gender Information Value Date Recorded Sex Assigned at Not on file Legal Sex Female 5:28 AM MELTER SUPERVISOR OXYGEN FURNACE Gender Identity Not on file Sexual Orientation Not on file documented as of this encounter Plan of Treatment Not on file documented as of this encounter Visit Diagnoses Diagnosis Cervicalgia- Primary Brachial neuritis or radiculitis NOS Brachial neuritis or radiculitis nos Cervical spondylosis Cervical spondylosis without myelopathy Lumbago documented in this encounter Care Teams Anatomy And Physiology Instructor Relationship Specialty Start Date End Date Neel Harris MD [address] [place] [address] [address] [place] [phone] PCP - General 06/26/06 documented as of this encounter
--- OUTSIDE RECORDS SUMMARY | 2025-05-29 04:48 | XMS_ITS | Encounter Summary ---
Author Organization [facility] Address [address] [place] [address] Care Team Providers Care Credentialing Coordinator Name Role Phone Neel Harris MD Primary Care Provider +1- [phone] Encounter Details Date Type Department Care Team (Latest Contact Info) Description 06/05/2000 Outpatient Historical [facility] Carroll Hansen NO ADDRESS ON FILE Encounter for long-term (current) use of other medications (Primary Dx) Social History Tobacco Use Types Packs/Day Years Used Date Smoking Tobacco: Never Assessed Comments Unknown Sex and Gender Information Value Date Recorded Sex Assigned at Not on file Legal Sex Female 5:28 AM BRASS BUFFER Gender Identity Not on file Sexual Orientation Not on file documented as of this encounter Plan of Treatment Not on file documented as of this encounter Visit Diagnoses Diagnosis Encounter for long-term (current) use of other medications- Primary documented in this encounter Care Teams Credentialing Coordinator Relationship Specialty Start Date End Date Neel Harris MD [address] [place] [phone] PCP - General 06/26/06 documented as of this encounter
--- OUTSIDE RECORDS SUMMARY | 2025-05-29 04:48 | XMS_ITS | Encounter Summary ---
Author Organization [facility] Address [address] [place] [address] Care Team Providers Care Lockstitch Shoulder Joiner Name Role Phone Neel Harris MD Primary Care Provider +1- [phone] Encounter Details Date Type Department Care Team (Latest Contact Info) Description 04/04/2001 Outpatient Historical [facility] Carroll Hansen NO ADDRESS ON FILE Other and unspecified hyperlipidemia (Primary Dx); Unspecified essential hypertension; Unspecified hypothyroidism; Type II or unspecified type diabetes mellitus without mention of complication, not stated as uncontrolled Social History Tobacco Use Types Packs/Day Years Used Date Smoking Tobacco: Never Assessed Comments Unknown Sex and Gender Information Value Date Recorded Sex Assigned at Not on file Legal Sex Female 5:28 AM CATTLE SHIPPER Gender Identity Not on file Sexual Orientation Not on file documented as of this encounter Plan of Treatment Not on file documented as of this encounter Visit Diagnoses Diagnosis Other and unspecified hyperlipidemia- Primary Unspecified essential hypertension Unspecified hypothyroidism Type II or unspecified type diabetes mellitus without mention of complication, not stated as uncontrolled documented in this encounter Care Teams Lockstitch Shoulder Joiner Relationship Specialty Start Date End Date Neel Harris MD [address] [place] [phone] PCP - General 06/26/06 documented as of this encounter
--- OUTSIDE RECORDS SUMMARY | 2025-05-29 04:48 | XMS_ITS | Encounter Summary ---
Author Organization [facility] Address [address] [facility] [address] Olson: Epic Prelude ADT JACQUELYN MCGRAW [address] Care Team Providers Care Bioinformatics Programmer Name Role Phone Neel Harris MD Primary Care Provider +1- [phone] Encounter Details Date Type Department Care Team (Late st Contact Info) Description 06/24/2002 Inpatient Historical Zachary Gamino MD NO ADDRESS ON FILE Social History Tobacco Use Types Packs/Day Years Used Date Smoking Tobacco: Never Assessed Comments Unknown Sex and Gender Information Value Date Recorded Sex Assigned at Not on file Legal Sex Female 5:28 AM MANAGER PHOTO Gender Identity Not on file Sexual Orientation Not on file documented as of this encounter Plan of Treatment Not on file documented as of this encounter Visit Diagnoses Not on filedocumented in this encounter Care Teams Bioinformatics Programmer Relationship Specialty Start Date End Date Neel Harris MD [address] [place] [phone] PCP - General 06/26/06 documented as of this encounter
--- OUTSIDE RECORDS SUMMARY | 2025-05-29 04:48 | XMS_ITS | Encounter Summary ---
Author Organization [facility] Address [address] [place] [address] Care Team Providers Care Rock Mason Name Role Phone Neel Harris MD Primary Care Provider +1- [phone] Encounter Details Date Type Department Care Team (Latest Contact Info) Description 05/11/2002 Outpatient Historical [facility] Milton Brandon Jr., MD [address] [place] [address] SEBACEOUS CYST (Primary Dx); Unspecified ehrlichiosis Social History Tobacco Use Types Packs/Day Years Used Date Smoking Tobacco: Never Assessed Comments Unknown Sex and Gender Information Value Date Recorded Sex Assigned at Not on file Legal Sex Female 5:28 AM ROW BOSS Gender Identity Not on file Sexual Orientation Not on file documented as of this encounter Plan of Treatment Not on file documented as of this encounter Visit Diagnoses Diagnosis Sebaceous cyst- Primary Unspecified ehrlichiosis Ehrlichiosis, unspecified documented in this encounter Care Teams Rock Mason Relationship Specialty Start Date End Date Neel Harris MD [address] [phone] PCP - General 06/26/06 documented as of this encounter
--- OUTSIDE RECORDS SUMMARY | 2025-05-29 04:48 | XMS_ITS | Encounter Summary ---
Author Organization [facility] Address [address] [place] [address] Care Team Providers Care Derrick Boat Captain Name Role Phone Neel Harris MD Primary Care Provider +1- [phone] Encounter Details Date Type Department Care Team (Latest Contact Info) Description 07/24/2002 Outpatient [facility] [address] [place] [address] Zachary Gamino MD NO ADDRESS ON FILE SURGERY FOLLOWUP, UNSPEC (Primary Dx) Social History Tobacco Use Types Packs/Day Years Used Date Smoking Tobacco: Never Assessed Comments Unknown Sex and Gender Information Value Date Recorded Sex Assigned at Not on file Legal Sex Female 5:28 AM CHEMICAL MANAGER Gender Identity Not on file Sexual Orientation Not on file documented as of this encounter Plan of Treatment Not on file documented as of this encounter Visit Diagnoses Diagnosis Follow-up examination, following unspecified surgery- Primary documented in this encounter Care Teams Derrick Boat Captain Relationship Specialty Start Date End Date Neel Harris MD [address] [phone] PCP - General 06/26/06 documented as of this encounter
--- OUTSIDE RECORDS SUMMARY | 2025-05-29 04:48 | XMS_ITS | Encounter Summary ---
Author Organization [facility] Address [address] [place] [address] Care Team Providers Care Horse Racetrack Manager Name Role Phone Neel Harris MD Primary Care Provider +1- [phone] Encounter Details Date Type Department Care Team (Latest Contact Info) Description 10/04/1999 Outpatient Historical [facility] Carroll Hansen NO ADDRESS ON FILE Other abnormal clinical finding (Primary Dx) Social History Tobacco Use Types Packs/Day Years Used Date Smoking Tobacco: Never Assessed Comments Unknown Sex and Gender Information Value Date Recorded Sex Assigned at Not on file Legal Sex Female 5:28 AM PAINTING INSTRUCTOR Gender Identity Not on file Sexual Orientation Not on file documented as of this encounter Plan of Treatment Not on file documented as of this encounter Visit Diagnoses Diagnosis Other abnormal clinical finding- Primary documented in this encounter Care Teams Horse Racetrack Manager Relationship Specialty Start Date End Date Neel Harris MD [address] [place] [phone] PCP - General 06/26/06 documented as of this encounter
--- OUTSIDE RECORDS SUMMARY | 2025-05-29 04:48 | XMS_ITS | Encounter Summary ---
Author Organization [facility] Address [address] [place] [address] Care Team Providers Care Drink Box Mechanic Name Role Phone Neel Harris MD Primary Care Provider +1- [phone] Encounter Details Date Type Department Care Team (Latest Contact Info) Description 01/22/2007 Outpatient Historical [facility] [address] [place] [address] Angie Escudero FNP [address] [facility] [address] [place] [address] Rotator Cuff Dis NEC (Primary Dx); Adhesive Capsulit Shlder; Spinal Stenosis of Lumbar Region; Cervical Spondylosis Social History Tobacco Use Types Packs/Day Years Used Date Smoking Tobacco: Never Assessed Comments Unknown Sex and Gender Information Value Date Recorded Sex Assigned at Not on file Legal Sex Female 5:28 AM PHOTOGRAMMETRIC STEREO COMPILER Gender Identity Not on file Sexual Orientation Not on file documented as of this encounter Plan of Treatment Not on file documented as of this encounter Visit Diagnoses Diagnosis Other specified disorders of rotator cuff syndrome of shoulder and allied disorders- Primary Adhesive capsulit shlder Adhesive capsulitis of shoulder Spinal stenosis, lumbar region, without neurogenic claudication Cervical spondylosis Cervical spondylosis without myelopathy documented in this encounter Care Teams Drink Box Mechanic Relationship Specialty Start Date End Date Neel Harris MD [address]05 [facility] [address] [place] [phone] PCP - General 06/26/06 documented as of this encounter
--- OUTSIDE RECORDS SUMMARY | 2025-05-29 04:48 | XMS_ITS | Encounter Summary ---
Author Organization [facility] Address [address] [place] [address] Care Team Providers Care Safety Glass Installer Name Role Phone Neel Harris MD Primary Care Provider +1- [phone] Encounter Details Date Type Department Care Team (Latest Contact Info) Description 04/02/2002 Outpatient Historical [facility] Milton Brandon Jr., MD [address] [place] [address] Routine medical exam (Primary Dx); DIABETES UNCOMPL ADULT-TYPE II (CMS/HCC); HYPERTENSION NOS; ELEV TRANSAMINASE/LDH Social History Tobacco Use Types Packs/Day Years Used Date Smoking Tobacco: Never Assessed Comments Unknown Sex and Gender Information Value Date Recorded Sex Assigned at Not on file Legal Sex Female 5:28 AM REGIONAL RECRUITER Gender Identity Not on file Sexual Orientation Not on file documented as of this encounter Plan of Treatment Not on file documented as of this encounter Visit Diagnoses Diagnosis Routine medical exam- Primary Routine general medical examination at a health care facility Type II or unspecified type diabetes mellitus without mention of complication, not stated as uncontrolled Unspecified essential hypertension Nonspecific elevation of levels of transaminase or lactic acid dehydrogenase (LDH) documented in this encounter Care Teams Safety Glass Installer Relationship Specialty Start Date End Date Neel Harris MD [address] [phone] PCP - General 06/26/06 documented as of this encounter
--- OUTSIDE RECORDS SUMMARY | 2025-05-29 04:48 | XMS_ITS | Encounter Summary ---
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) Social History Tobacco Use Types Packs/Day Years Used Date Smoking Tobacco: Never Assessed Comments Unknown Sex and Gender Information Value Date Recorded Sex Assigned at Not on file Legal Sex Female 5:28 AM SLOTS MANAGER Gender Identity Not on file Sexual Orientation Not on file documented as of this encounter Plan of Treatment Not on file documented as of this encounter Visit Diagnoses Diagnosis Displacement of cervical intervertebral disc without myelopathy- Primary documented in this encounter Care Teams Costume Technician Relationship Specialty Start Date End Date Neel Harris MD [address] [place] [phone] PCP - General 06/26/06 documented as of this encounter
--- OUTSIDE RECORDS SUMMARY | 2025-05-29 04:48 | XMS_ITS | Encounter Summary ---
Author Organization [facility] Address [address] [place] [address] Care Team Providers Care Sheet Fed Printer Name Role Phone Neel Harris MD Primary Care Provider +1- [phone] Encounter Details Date Type Department Care Team (Latest Contact Info) Description 02/28/1999 Outpatient Historical [facility] [address] [place] [address] Zachary Gamino MD NO ADDRESS ON FILE Unspecified symptom associated with female genital organs (Primary Dx) Social History Tobacco Use Types Packs/Day Years Used Date Smoking Tobacco: Never Assessed Comments Unknown Sex and Gender Information Value Date Recorded Sex Assigned at Not on file Legal Sex Female 5:28 AM HARBOR ENGINEER Gender Identity Not on file Sexual Orientation Not on file documented as of this encounter Plan of Treatment Not on file documented as of this encounter Visit Diagnoses Diagnosis Unspecified symptom associated with female genital organs- Primary documented in this encounter Care Teams Sheet Fed Printer Relationship Specialty Start Date End Date Neel Harris MD [address] [place] [phone] PCP - General 06/26/06 documented as of this encounter
--- OUTSIDE RECORDS SUMMARY | 2025-05-29 04:49 | XMS_ITS | Encounter Summary ---
Author Organization [facility] Address [address] [place] [address] Care Team Providers Care Mangle Press Catcher Name Role Phone Neel Harris MD Primary Care Provider +1- [phone] Encounter Details Date Type Department Care Team (Late st Contact Info) Description 08/06/2006 Outpatient Historical [facility] Zachary Gamino MD NO ADDRESS ON FILE Social History Tobacco Use Types Packs/Day Years Used Date Smoking Tobacco: Never Assessed Comments Unknown Sex and Gender Information Value Date Recorded Sex Assigned at Not on file Legal Sex Female 5:28 AM SIGNAL TOWER OPERATOR Gender Identity Not on file Sexual Orientation Not on file documented as of this encounter Plan of Treatment Not on file documented as of this encounter Visit Diagnoses Not on filedocumented in this encounter Care Teams Mangle Press Catcher Relationship Specialty Start Date End Date Nele Harris MD [address] [phone] PCP - General 06/26/06 documented as of this encounter
--- OUTSIDE RECORDS SUMMARY | 2025-05-29 04:49 | XMS_ITS | Encounter Summary ---
Author Organization [facility] Address [address] [place] [address] Care Team Providers Care Tailman Name Role Phone Neel Harris MD Primary Care Provider +1- [phone] Encounter Details Date Type Department Care Team (Latest Contact Info) Description 07/10/2006 Outpatient Historical [facility] [address] [place] [address] [place] [facility] [address] [place] [phone] Ian Patterson MD NO ADDRESS ON FILE Displacement of Cervical Intervertebral Disc without Myelopathy (Primary Dx) Social History Tobacco Use Types Packs/Day Years Used Date Smoking Tobacco: Never Assessed Comments Unknown Sex and Gender Information Value Date Recorded Sex Assigned at Not on file Legal Sex Female 5:28 AM FUR MATCHER Gender Identity Not on file Sexual Orientation Not on file documented as of this encounter Plan of Treatment Not on file documented as of this encounter Visit Diagnoses Diagnosis Displacement of cervical intervertebral disc without myelopathy- Primary documented in this encounter Care Teams Tailman Relationship Specialty Start Date End Date Neel Harris MD [address] [phone] PCP - General 06/26/06 documented as of this encounter
--- OUTSIDE RECORDS SUMMARY | 2025-05-29 04:49 | XMS_ITS | Encounter Summary ---
Author Organization [facility] Address [address] [place] [address] Care Team Providers Care Medicine Assistant Name Role Phone Neel Harris MD Primary Care Provider +1- [phone] Encounter Details Date Type Department Care Team (Late st Contact Info) Description 06/26/2006 Outpatient Historical [facility] Social History Tobacco Use Types Packs/Day Years Used Date Smoking Tobacco: Never Assessed Comments Unknown Sex and Gender Information Value Date Recorded Sex Assigned at Not on file Legal Sex Female 5:28 AM CRYPTOGRAPHER Gender Identity Not on file Sexual Orientation Not on file documented as of this encounter Plan of Treatment Not on file documented as of this encounter Visit Diagnoses Not on filedocumented in this encounter Care Teams Medicine Assistant Relationship Specialty Start Date End Date Neel Harris MD [address] [phone] PCP - General 06/26/06 documented as of this encounter
--- OUTSIDE RECORDS SUMMARY | 2025-05-29 04:49 | XMS_ITS | Encounter Summary ---
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
--- OUTSIDE RECORDS SUMMARY | 2025-05-29 04:49 | XMS_ITS | Encounter Summary ---
Author Organization [facility] Address [address] [place] [address] Care Team Providers Care Airport Ramp Agent Name Role Phone Neel Harris MD Primary Care Provider +1- [phone] Encounter Details Date Type Department Care Team (Latest Contact Info) Description 08/06/2006 Outpatient Historical [facility] [address] [place] [address] Zachary Gamino MD NO ADDRESS ON FILE Encounters for Unspecified Administrative Purpose (Primary Dx) Social History Tobacco Use Types Packs/Day Years Used Date Smoking Tobacco: Never Assessed Comments Unknown Sex and Gender Information Value Date Recorded Sex Assigned at Not on file Legal Sex Female 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
--- OUTSIDE RECORDS SUMMARY | 2025-05-29 04:49 | XMS_ITS | Encounter Summary ---
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) Social History Tobacco Use Types Packs/Day Years Used Date Smoking Tobacco: Never Assessed Comments Unknown Sex and Gender Information Value Date Recorded Sex Assigned at Not on file Legal Sex Female 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
--- OUTSIDE RECORDS SUMMARY | 2025-05-29 04:49 | XMS_ITS | Encounter Summary ---
Author Organization [facility] Address [address] [place] [address] Care Team Providers Care Smart Grid Engineer Name Role Phone Neel Harris MD Primary Care Provider +1- [phone] Encounter Details Date Type Department Care Team (Latest Contact Info) Description 06/23/2004 Outpatient Historical 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
--- OUTSIDE RECORDS SUMMARY | 2025-05-29 04:49 | XMS_ITS | Encounter Summary ---
Author Organization [facility] Address [address] [place] [address] Care Team Providers Care Corrective Therapy Aide Teacher Name Role Phone Neel Harris MD Primary Care Provider +1- [phone] Encounter Details Date Type Department Care Team (Latest Contact Info) Description 10/10/2006 Outpatient Historical [facility] [address] [place] [address] [place] [place] [address] [place] [address] Angie Escudero FNP [address] [address] [address] [place] [address] Displacement of Cervical Intervertebral Disc without Myelopathy (Primary Dx) Social History Tobacco Use Types Packs/Day Years Used Date Smoking Tobacco: Never Assessed Comments Unknown Sex and Gender Information Value Date Recorded Sex Assigned at Not on file Legal Sex Female 5:28 AM HOSPITAL SCIENTIST Gender Identity Not on file Sexual Orientation Not on file documented as of this encounter Plan of Treatment Not on file documented as of this encounter Visit Diagnoses Diagnosis Displacement of cervical intervertebral disc without myelopathy- Primary documented in this encounter Care Teams Corrective Therapy Aide Teacher Relationship Specialty Start Date End Date Neel Harris MD [address] [place] [address] 1 [place] [address] PCP - General 06/26/06 documented as of this encounter
--- OUTSIDE RECORDS SUMMARY | 2025-05-29 04:49 | XMS_ITS | Encounter Summary ---
Author Organization [facility] Address [address] [place] [address] Care Team Providers Care Dry Pan Operator Name Role Phone Neel Harris MD Primary Care Provider +1- [phone] Encounter Details Date Type Department Care Team (Latest Contact Info) Description 12/04/2006 [facility] [address] [place] [address] Angie Escudero FNP [address] [place] [phone] Cervical Disc Displacmnt (Primary Dx); Cervicalgia; Cervical Spondylosis; Lumbago Social History Tobacco Use Types Packs/Day Years Used Date Smoking Tobacco: Never Assessed Comments Unknown Sex and Gender Information Value Date Recorded Sex Assigned at Not on file Legal Sex Female 5:28 AM CLASSROOM INSTRUCTOR Gender Identity Not on file Sexual Orientation Not on file documented as of this encounter Plan of Treatment Not on file documented as of this encounter Visit Diagnoses Diagnosis Cervical disc displacmnt- Primary Displacement of cervical intervertebral disc without myelopathy Cervicalgia Cervical spondylosis Cervical spondylosis without myelopathy Lumbago documented in this encounter Care Teams Dry Pan Operator Relationship Specialty Start Date End Date Neel Harris MD 805 [facility] [address] [place] [phone] PCP - General 06/26/06 documented as of this encounter
--- OUTSIDE RECORDS SUMMARY | 2025-05-29 04:49 | XMS_ITS | Encounter Summary ---
Author Organization [facility] Address [address] [place] [address] Care Team Providers Care Furnace Brazer Name Role Phone Neel Harris MD Primary Care Provider +1- [phone] Encounter Details Date Type Department Care Team (Latest Contact Info) Description 12/04/2006 Outpatient Historical [facility] [place] [address] [place] [address] [place] [address] Angie Escudero FNP [address] [address] [address] [place] [address] Displacement of Cervical Intervertebral Disc without Myelopathy (Primary Dx) Social History Tobacco Use Types Packs/Day Years Used Date Smoking Tobacco: Never Assessed Comments Unknown Sex and Gender Information Value Date Recorded Sex Assigned at Not on file Legal Sex Female 5:28 AM NURSE INSTRUCTOR Gender Identity Not on file Sexual Orientation Not on file documented as of this encounter Plan of Treatment Not on file documented as of this encounter Visit Diagnoses Diagnosis Displacement of cervical intervertebral disc without myelopathy- Primary documented in this encounter Care Teams Furnace Brazer Relationship Specialty Start Date End Date Neel Harris MD [address] [place] [address] 1 [place] [phone] PCP - General 06/26/06 documented as of this encounter
--- OUTSIDE RECORDS SUMMARY | 2025-05-29 04:49 | XMS_ITS | Encounter Summary ---
Author Organization [facility] Address [address] [place] [address] Care Team Providers Care Double Reamer Operator Name Role Phone Neel Harris MD Primary Care Provider +1- [phone] Encounter Details Date Type Department Care Team (Latest Contact Info) Description 08/20/2006 Outpatient Historical [facility] Chronic Pain [address] [place] [address] [place] [address] [facility] [address] [place] [address] Headache (Primary Dx) Social History Tobacco Use Types Packs/Day Years Used Date Smoking Tobacco: Never Assessed Comments Unknown Sex and Gender Information Value Date Recorded Sex Assigned at Not on file Legal Sex Female 5:28 AM REACTOR FUELING 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
--- OUTSIDE RECORDS SUMMARY | 2025-05-29 04:49 | XMS_ITS | Encounter Summary ---
Author Organization [facility] Address [address] [place] [address] Care Team Providers Care Candle Cutter Name Role Phone Neel Harris MD Primary Care Provider +1- [phone] Encounter Details Date Type Department Care Team (Latest Contact Info) Description 08/20/2006 Outpatient Historical [facility] Pain [facility] [address] [place] [address] Ian Patterson MD NO ADDRESS ON FILE Cervical Disc Displacmnt (Primary Dx); Cervicalgia; Brachial Neuritis or Radiculitis NOS Social History Tobacco Use Types Packs/Day Years Used Date Smoking Tobacco: Never Assessed Comments Unknown Sex and Gender Information Value Date Recorded Sex Assigned at Not on file Legal Sex Female 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
--- OUTSIDE RECORDS SUMMARY | 2025-05-29 04:49 | XMS_ITS | Encounter Summary ---
Author Organization [facility] Address [address] [place] [address] Care Team Providers Care Prehemmer Name Role Phone Neel Harris MD Primary Care Provider +1- [phone] Encounter Details Date Type Department Care Team (Latest Contact Info) Description 08/06/2006 Outpatient Historical [facility] Chronic Pain [address] [place] [address] [place] [address] [facility] [address] [place] [address] Headache (Primary Dx) Social History Tobacco Use Types Packs/Day Years Used Date Smoking Tobacco: Never Assessed Comments Unknown Sex and Gender Information Value Date Recorded Sex Assigned at Not on file Legal Sex Female 5:28 AM SUPERVISOR MATTRESS AND BOXSPRINGS Gender Identity Not on file Sexual Orientation Not on file documented as of this encounter Plan of Treatment Not on file documented as of this encounter Visit Diagnoses Diagnosis Headache(784.0)- Primary Headache documented in this encounter Care Teams Prehemmer Relationship Specialty Start Date End Date Neel Harris MD [address] [place] [phone] PCP - General 06/26/06 documented as of this encounter
--- OUTSIDE RECORDS SUMMARY | 2025-05-29 04:49 | XMS_ITS | Encounter Summary ---
Author Organization [facility] Address [address] [place] [address] Care Team Providers Care Agricultural Services Director Name Role Phone Neel Harris MD Primary Care Provider +1- [phone] Encounter Details Date Type Department Care Team (Late st Contact Info) Description 08/06/2006 Outpatient [facility] [address] [place] [address] Social History Tobacco Use Types Packs/Day Years Used Date Smoking Tobacco: Never Assessed Comments Unknown Sex and Gender Information Value Date Recorded Sex Assigned at Not on file Legal Sex Female 5:28 AM CORPORATE DIRECTOR OF PHARMACY Gender Identity Not on file Sexual Orientation Not on file documented as of this encounter Plan of Treatment Not on file documented as of this encounter Visit Diagnoses Not on filedocumented in this encounter Care Teams Agricultural Services Director Relationship Specialty Start Date End Date Neel Harris MD [address] [place] [phone] PCP - General 06/26/06 documented as of this encounter
--- OUTSIDE RECORDS SUMMARY | 2025-05-29 04:49 | XMS_ITS | Encounter Summary ---
Author Organization [facility] Address [address] [place] [address] Care Team Providers Care Public Service Representative Name Role Phone Neel Harris MD Primary Care Provider +1- [phone] Encounter Details Date Type Department Care Team (Late st Contact Info) Description 06/26/2006 Outpatient Historical [facility] [address] [place] [address] [facility] [address] [place] [phone] [place] [address] [facility] [address] [place] [address] Pain in Soft Tissues of Limb (Primary Dx) Social History Tobacco Use Types Packs/Day Years Used Date Smoking Tobacco: Never Assessed Comments Unknown Sex and Gender Information Value Date Recorded Sex Assigned at Not on file Legal Sex Female 5:28 AM SENIOR 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
--- OUTSIDE RECORDS SUMMARY | 2025-05-29 04:49 | XMS_ITS | Encounter Summary ---
Author Organization [facility] Address [address] [place] [address] Care Team Providers Care Supervisor Testing Name Role Phone Neel Harris MD Primary Care Provider +1- [phone] Encounter Details Date Type Department Care Team (Latest Contact Info) Description 10/10/2006 Outpatient Historical [facility] [place] [address] [place] [address] Angie Escudero FNP [address] [place] [address] Degeneration of Cervical Intervertebral Disc (Primary Dx); Cervical Disc Displacmnt; Cervicalgia; Unspecified Musculoskeletal Disorders and Symptoms Referable to Neck Social History Tobacco Use Types Packs/Day Years Used Date Smoking Tobacco: Never Assessed Comments Unknown Sex and Gender Information Value Date Recorded Sex Assigned at Not on file Legal Sex Female 5:28 AM JURY CONSULTANT Gender Identity Not on file Sexual Orientation Not on file documented as of this encounter Plan of Treatment Not on file documented as of this encounter Visit Diagnoses Diagnosis Degeneration of cervical intervertebral disc- Primary Cervical disc displacmnt Displacement of cervical intervertebral disc without myelopathy Cervicalgia Unspecified musculoskeletal disorders and symptoms referable to neck documented in this encounter Care Teams Supervisor Testing Relationship Specialty Start Date End Date Neel Harris MD 805 [facility] 1 [place] [phone] PCP - General 06/26/06 documented as of this encounter
--- OUTSIDE RECORDS SUMMARY | 2025-05-29 04:49 | XMS_ITS | Encounter Summary ---
Author Organization [facility] Address [address] [place] [address] Care Team Providers Care Laborer Pie Bakery Name Role Phone Neel Harris MD Primary Care Provider +1- [phone] Encounter Details Date Type Department Care Team (Latest Contact Info) Description 08/20/2006 Outpatient Historical [facility] Pain Management Procedures [address] [place] [phone] Ian Patterson MD NO ADDRESS ON FILE Displacement of Cervical Intervertebral Disc without Myelopathy (Primary Dx) Social History Tobacco Use Types Packs/Day Years Used Date Smoking Tobacco: Never Assessed Comments Unknown Sex and Gender Information Value Date Recorded Sex Assigned at Not on file Legal Sex Female 5:28 AM POWER SHOVEL OPERATOR HELPER Gender Identity Not on file Sexual Orientation Not on file documented as of this encounter Plan of Treatment Not on file documented as of this encounter Visit Diagnoses Diagnosis Displacement of cervical intervertebral disc without myelopathy- Primary documented in this encounter Care Teams Laborer Pie Bakery Relationship Specialty Start Date End Date Neel Harris MD [address] [place] [phone] PCP - General 06/26/06 documented as of this encounter
--- OUTSIDE RECORDS SUMMARY | 2025-05-29 04:49 | XMS_ITS | Encounter Summary ---
Author Organization [facility] Address [address] [place] [address] Care Team Providers Care Oil Expeller Operator Name Role Phone Neel Harris MD Primary Care Provider +1- [phone] Encounter Details Date Type Department Care Team (Latest Contact Info) Description 07/10/2006 Outpatient [facility] [address] [place] [phone] Ian Patterson MD NO ADDRESS ON FILE Degeneration of Cervical Intervertebral Disc (Primary Dx); Cervical Disc Displacmnt; Cervicalgia; Brachial Neuritis or Radiculitis NOS Social History Tobacco Use Types Packs/Day Years Used Date Smoking Tobacco: Never Assessed Comments Unknown Sex and Gender Information Value Date Recorded Sex Assigned at Not on file Legal Sex Female 5:28 AM DOT NET ARCHITECT Gender Identity Not on file Sexual Orientation Not on file documented as of this encounter Plan of Treatment Not on file documented as of this encounter Visit Diagnoses Diagnosis Degeneration of cervical intervertebral disc- Primary Cervical disc displacmnt Displacement of cervical intervertebral disc without myelopathy Cervicalgia Brachial neuritis or radiculitis NOS Brachial neuritis or radiculitis nos documented in this encounter Care Teams Oil Expeller Operator Relationship Specialty Start Date End Date Neel Harris MD [address] [place] [phone] PCP - General 06/26/06 documented as of this encounter
--- OUTSIDE RECORDS SUMMARY | 2025-05-29 04:49 | XMS_ITS | Encounter Summary ---
Author Organization [facility] Address [address] [place] [address] Care Team Providers Care Wheel Assembler Name Role Phone Neel Harris MD Primary Care Provider +1- [phone] Encounter Details Date Type Department Care Team (Latest Contact Info) Description 08/06/2006 Outpatient Historical [facility] BEEF GRINDER [address] [place] [address] Zachary Gamino MD NO ADDRESS ON FILE Routine Medical Exam (Primary Dx); Routine Gynecological Examination; Screening for Malignant Neoplasm of the Rectum Social History Tobacco Use Types Packs/Day Years Used Date Smoking Tobacco: Never Assessed Comments Unknown Sex and Gender Information Value Date Recorded Sex Assigned at Not on file Legal Sex Female 5:28 AM COTTON CONVERTER Gender Identity Not on file Sexual Orientation Not on file documented as of this encounter Plan of Treatment Not on file documented as of this encounter Visit Diagnoses Diagnosis Routine medical exam- Primary Routine general medical examination at a health care facility Routine gynecological examination Screening for malignant neoplasm of the rectum documented in this encounter Care Teams Wheel Assembler Relationship Specialty Start Date End Date Neel Harris MD [address] [phone] PCP - General 06/26/06 documented as of this encounter
--- OUTSIDE RECORDS SUMMARY | 2025-05-29 04:49 | XMS_ITS | Encounter Summary ---
Author Organization [facility] Address [address] [place] [address] Care Team Providers Care Recycler Forklift Driver Truck Driver Name Role Phone Neel Harris MD Primary Care Provider +1- [phone] Encounter Details Date Type Department Care Team (Latest Contact Info) Description 09/05/2005 Outpatient Historical [facility] RAT CULTURIST [address] [place] [address] Zachary Gamino MD NO ADDRESS ON FILE Routine medical exam (Primary Dx) Social History Tobacco Use Types Packs/Day Years Used Date Smoking Tobacco: Never Assessed Comments Unknown Sex and Gender Information Value Date Recorded Sex Assigned at Not on file Legal Sex Female 5:28 AM ASPHALT PAVING SUPERVISOR Gender Identity Not on file Sexual Orientation Not on file documented as of this encounter Plan of Treatment Not on file documented as of this encounter Visit Diagnoses Diagnosis Routine medical exam- Primary Routine general medical examination at a health care facility documented in this encounter Care Teams Recycler Forklift Driver Truck Driver Relationship Specialty Start Date End Date Neel Harris MD [address] [phone] PCP - General 06/26/06 documented as of this encounter
--- OUTSIDE RECORDS SUMMARY | 2025-05-29 04:49 | XMS_ITS | Encounter Summary ---
Author Organization [facility] Address [address] [place] [address] Care Team Providers Care Mica Sizer Name Role Phone Neel Harris MD Primary Care Provider +1- [phone] Encounter Details Date Type Department Care Team (Latest Contact Info) Description 07/03/2006 Outpatient Historical [facility] Chronic Pain [address] [place] [address] [place] [address] [facility] [address] [place] [address] Headache (Primary Dx) Social History Tobacco Use Types Packs/Day Years Used Date Smoking Tobacco: Never Assessed Comments Unknown Sex and Gender Information Value Date Recorded Sex Assigned at Not on file Legal Sex Female 5:28 AM GROUND EQUIPMENT 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
--- OUTSIDE RECORDS SUMMARY | 2025-05-29 04:49 | XMS_ITS | Clinical Summary ---
Author Organization [facility] [place] Address [address] [place] [address] Phone Care Team Providers Care Crop Setting Out Machine Operator Name Role Phone Neel Harris MD Primary Care Provider +1- [phone] Allergies Active Allergy Reactions Criticality Noted Date Comments Acetaminophen Hives High 06/10/2018 Adhesive Hives High 06/10/2018 Amlodipine Headache Low 01/28/2024 Celecoxib Hives High 06/10/2018 Hydrocodone Nausea and Vomiting Low 06/10/2018 Nsaids (Non-Steroidal Anti-Inflammatory Drug) Hives High 06/10/2018 Oxycodone Nausea and Vomiting Low 06/10/2018 Perfume Headache Low 06/10/2018 Povidone-Iodine Rash,Hives High 09/16/2023 Rosiglitazone-Metformin Headache Low 01/28/2024 Simvastatin Unknown 01/28/2024 Sitagliptin Hives High 06/10/2018 Soap DRESS (Drug Rash wit h Eosinophilia and Systemic Symptoms) High 09/16/2023 Sulfamethoxazole Diarrhea Low 09/16/2023 Tramadol Nausea and Vomiting Low 06/10/2018 Trimethoprim Diarrhea Low 09/16/2023 Medications blood sugar diagnostic (Accu-Chek Meagan Plus test strp) Strip USE 1 STRIP TO CHECK GLUCOSE ONCE DAILY (E11.65) 04/12/2020 Active pantoprazole (PROTONIX) 40 mg Tablet, Delayed Release (E.C.) 03/21/2020 Active lancets (Accu-Chek Softclix Lancets) USE 1 TO CHECK GLUCOSE ONCE DAILY (E11.8) 04/12/2020 Active metoprolol tartrate (LOPRESSOR) 25 mg tablet 01/02/2022 Active metFORMIN (GLUCOPHAGE) 1,000 mg tablet 01/02/2022 Act tate cetirizine (ZyrTEC) 10 mg tablet Take 10 mg by mouth daily. Active dicyclomine (BENTYL) 10 mg capsule Take 10 mg by mouth 2 times daily. 06/10/2018 Active lisinopriL (PRINIVIL) 20 mg tablet Take 20 mg by mouth daily. Active glyBURIDE (DIABETA) 5 mg tablet Take 10 mg by mouth 2 times daily with meals. Active levothyroxine 150 mcg tablet Take 150 mcg by mouth daily in the morning. Active promethazine (PHENERGAN) 25 mg tablet Take 1 Tablet (25 mg) by mouth every 6 hours as needed for Nausea/Emesi s. 20 Tablet 10/06/2023 Active esomeprazole (NexIUM) 40 mg Capsule, Delayed Release(E.C.) Take 1 Capsule by mouth daily. 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 Encounters Date Type Department Care Team Description 05/26/2025 External Device Data ST[facility] ABSTRACTION Provider, Abstract 03/23/2025 External Device Data ST[facility] ABSTRACTION Provider, Abstract 03/12/2025 External Device Data [facility] ABSTRACTION Provider, Abstract from Last 3 Months Immunizations Immunization Administration Dates Next Due (PNEUMOVAX 23)(50 YRS UP) PN EUMOCOCCAL POLYSACCHARIDE (PPV23) 0.5 ML, IM 08/11/2003 Influenza Seasonal Unspecified Formulation IM Family History Medical History Relation Name Comments Heart Disease Brother Heart Disease Father Diabetes Half-Brother Macular Degen Half-Sister Diabetes Maternal Grandmother Breast Cancer Neg Hx Colon Cancer Neg Hx Ovarian Cancer Neg Hx Relation Name Status Comments Brother Father Half-Brother Half-Sister Maternal Grandmother Mother Social History Tobacco Use Types Packs/Day Years Used Date Smoking Tobacco: Never Passive Smoke Exposure: Never Smokeless Tobacco: Never Tobacco Cessation:Counseling Given: No Alcohol Use Standard Drinks/Week Comments No 0 (1 standard drink = 0.6 oz pur e alcohol) Comments No Sex and Gender Information Value Date Recorded Sex Assigned at Not on file Legal Sex Female 6:02 AM MILL SUPERVISOR Gender Identity Not on file Sexual Orientation Not on file Last Filed Vital Signs Vital Sign Reading Time Taken Comments Blood Pressure 143/77 10/06/2023 10:09 PM MILL SUPERVISOR Pulse 104 10/04/2023 8:30 PM MILL SUPERVISOR Temperature 36.3 C (97.3 F) 10/06/2023 10:09 PM MILL SUPERVISOR Respiratory Rate 18 10/06/2023 10:09 PM MILL SUPERVISOR Oxygen Saturation 97% 10/06/2023 10:09 PM MILL SUPERVISOR Inhaled Oxygen Concentration - - Weight 85.7 kg (189 lb) 10/06/2023 10:09 PM MILL SUPERVISOR Height 165.1 cm (5' 5 ) 10/06/2023 10:09 PM MILL SUPERVISOR Body Mass Index 31.45 10/06/2023 10:09 PM MILL SUPERVISOR Plan of Treatment Upcoming Encounters Date Type Department Care Team (Late st Contact Info) Description 01/28/2026 9:40 AM CDT Office Visit [facility] [place] [address] [place] [phone] Alexander Rosas MD [address] [place] [phone] 01/28/2026 10:00 AM CDT Procedure visit [facility] [place] [address] [place] [phone] Health Maintenance Due Date Last Done Comments DIABETES ANNUAL FOOT EXAM 01/17/1972 DIABETES MICROALBUMIN ANNUAL SCREEN 01/17/1972 LDL CHOLESTEROL ANNUAL 01/17/1972 DTAP/TDAP/TD VACCINES (1 - Tdap) 1973 COLORECTAL SCREENING 1999 Colorectal Cancer Screening 1999 FIT-DNA Q 3 years 1999 FIT/FOBT Q 1 year 1999 Flex Sig/CT Colonography Q 5 years 1999 BREAST CANCER SCREENING 01/20/2011 01/20/2010, 11/11 ZOSTER VACCINE (2 of 3) 09/14/2015 07/20/2015 OSTEOPOROSIS SCREENING 2019 DIABETES HBA1C Q 6 MONTHS 07/24/2019 01/22/2019 COVID-19 Vaccine (3 - 2024-2 5 season) 2024 12/16/2020, 11/18/2020 INFLUENZA VACCINE (#1) 2025 , 08/29/2023, 08/29/2023, Additional history exists DIABETES ANNUAL RETINAL EXAM 01/28/202607/2025, 01/28/2025, 01/28/2025, Additional history exists RSV VACCINE (60+ or ) (1 - 1-dose 75+ series) 2029 PNEUMOCOCCAL VACCINE 50+ YEARS Completed 0 07/13/2020, 07/15/2019, 08/11/2003 Procedures Procedure Name Priority Date/Time Associated Diagnosis Comments MAMMO SCREENING BILAT Routine 01/20/2010 1:12 PM CDT Other screening mammogram from Last 3 Months or Most Recently Relevant to Health Maintenance Results * MAMMO SCREENING BILAT (01/20/2010 1:12 PM CDT) Anatomical Region Laterality Modality Breast Bilateral Other Narrative 01/22/2010 3:45 PM CDT Bilateral Mammogram Reason for Exam: Screening Comparison: Comparison is made with the prior exam(s) dated 08.06.06 Findings: Bilateral CC and MLO views were obtained. This examination was reviewed with the aid of a computer-aided detection system(CAD). The breast tissue is dense. No significant new findings since the prior mammogram(s). Procedure Note Alice Richard MD - 12/19/2022 Bilateral Mammogram Reason for Exam: Screening Comparison: Comparison is made with the prior exam(s) dated 08.06.06 Findings: Bilateral CC and MLO views were obtained. This examination was reviewed with the aid of a computer-aided detection system(CAD). The breast tissue is dense. No significant new findings since the prior mammogram(s). Zachary Gamino MD MAMMO ORDERABLES Final Result from Last 3 Months or Most Recently Relevant to Health Maintenance Insurance [address] [place] [address] MEDICARE PART [facility] Care Teams Crop Setting Out Machine Operator Relationship Specialty Start Date End Date Neel Harris MD [address] [place] [phone] PCP - General 06/26/06
--- OUTSIDE RECORDS SUMMARY | 2025-05-29 04:49 | XMS_ITS | Encounter Summary ---
Author Organization [facility] Address [address] [place] [address] Care Team Providers Care Sociology Adjunct Instructor Name Role Phone Neel Harris MD Primary Care Provider +1- [phone] Encounter Details Date Type Department Care Team (Latest Contact Info) Description 08/06/2006 Outpatient Historical [facility] [address] [place] [phone] Alice Richard MD NO ADDRESS ON FILE Other Screening Mammogram (Primary Dx) Social History Tobacco Use Types Packs/Day Years Used Date Smoking Tobacco: Never Assessed Comments Unknown Sex and Gender Information Value Date Recorded Sex Assigned at Not on file Legal Sex Female 5:28 AM 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
--- OUTSIDE RECORDS SUMMARY | 2025-05-29 04:49 | XMS_ITS | Encounter Summary ---
Author Organization [facility] Address [address] [place] [address] Care Team Providers Care Leaf Blender Name Role Phone Neel Harris MD Primary Care Provider +1- [phone] Encounter Details Date Type Department Care Team (Latest Contact Info) Description 07/18/2006 Outpatient Historical [facility] Chronic Pain [address] [place] [address] [place] [address] [facility] [address] [place] [address] Headache (Primary Dx) Social History Tobacco Use Types Packs/Day Years Used Date Smoking Tobacco: Never Assessed Comments Unknown Sex and Gender Information Value Date Recorded Sex Assigned at Not on file Legal Sex Female 5:28 AM RATING SPECIALIST Gender Identity Not on file Sexual Orientation Not on file documented as of this encounter Plan of Treatment Not on file documented as of this encounter Visit Diagnoses Diagnosis Headache(784.0)- Primary Headache documented in this encounter Care Teams Leaf Blender Relationship Specialty Start Date End Date Neel Harris MD [address] [place] [phone] PCP - General 06/26/06 documented as of this encounter
--- OUTSIDE RECORDS SUMMARY | 2025-05-29 04:49 | XMS_ITS | Encounter Summary ---
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 [place] [address] Zachary Gamino MD NO ADDRESS ON FILE Routine medical exam (Primary Dx) Social History Tobacco Use Types Packs/Day Years Used Date Smoking Tobacco: Never Assessed Comments Unknown Sex and Gender Information Value Date Recorded Sex Assigned at Not on file Legal Sex Female 5:28 AM ACTUARY CLERK Gender Identity Not on file Sexual Orientation Not on file documented as of this encounter Plan of Treatment Not on file documented as of this encounter Visit Diagnoses Diagnosis Routine medical exam- Primary Routine general medical examination at a health care facility documented in this encounter Care Teams Field Service Representative Relationship Specialty Start Date End Date Neel Harris MD [address] [phone] PCP - General 06/26/06 documented as of this encounter
--- OUTSIDE RECORDS SUMMARY | 2025-05-29 04:49 | XMS_ITS | Encounter Summary ---
Author Organization [facility] Address [address] [place] [address] Care Team Providers Care Cyber Intel Planner Name Role Phone Neel Harris MD Primary Care Provider +1- [phone] Encounter Details Date Type Department Care Team (Late st Contact Info) Description 07/10/2006 Outpatient Historical [facility] Social History Tobacco Use Types Packs/Day Years Used Date Smoking Tobacco: Never Assessed Comments Unknown Sex and Gender Information Value Date Recorded Sex Assigned at Not on file Legal Sex Female 5:28 AM BACK SEAM STITCHER Gender Identity Not on file Sexual Orientation Not on file documented as of this encounter Plan of Treatment Not on file documented as of this encounter Visit Diagnoses Not on filedocumented in this encounter Care Teams Cyber Intel Planner Relationship Specialty Start Date End Date Neel Harris MD [address] [phone] PCP - General 06/26/06 documented as of this encounter
--- OUTSIDE RECORDS SUMMARY | 2025-05-29 04:49 | XMS_ITS | Encounter Summary ---
Author Organization [facility] Address [address] [place] [address] Care Team Providers Care Preschool Lead Teacher Name Role Phone Neel Harris MD Primary Care Provider +1- [phone] Encounter Details Date Type Department Care Team (Latest Contact Info) Description 09/03/2006 Outpatient Historical [facility] [address] [place] [phone] Ian Patterson MD NO ADDRESS ON FILE Brachial Neuritis or Radiculitis NOS (Primary Dx); Cervical Disc Displacmnt; Cervicalgia Social History Tobacco Use Types Packs/Day Years Used Date Smoking Tobacco: Never Assessed Comments Unknown Sex and Gender Information Value Date Recorded Sex Assigned at Not on file Legal Sex Female 5:28 AM PREMIX CONCRETE BATCHER Gender Identity Not on file Sexual Orientation Not on file documented as of this encounter Plan of Treatment Not on file documented as of this encounter Visit Diagnoses Diagnosis Brachial neuritis or radiculitis NOS- Primary Brachial neuritis or radiculitis nos Cervical disc displacmnt Displacement of cervical intervertebral disc without myelopathy Cervicalgia documented in this encounter Care Teams Preschool Lead Teacher Relationship Specialty Start Date End Date Neel Harris MD [address] [place] [phone] PCP - General 06/26/06 documented as of this encounter
--- OUTSIDE RECORDS SUMMARY | 2025-05-29 04:49 | XMS_ITS | Encounter Summary ---
Author Organization [facility] Address [address] [place] [address] Care Team Providers Care Wireless Construction Manager Name Role Phone Neel Harris MD Primary Care Provider +1- [phone] Encounter Details Date Type Department Care Team (Latest Contact Info) Description 09/03/2006 Outpatient Historical [facility] [address] [place] [phone] Ian Patterson MD NO ADDRESS ON FILE Displacement of Cervical Intervertebral Disc without Myelopathy (Primary Dx) Social History Tobacco Use Types Packs/Day Years Used Date Smoking Tobacco: Never Assessed Comments Unknown Sex and Gender Information Value Date Recorded Sex Assigned at Not on file Legal Sex Female 5:28 AM SENIOR CREDIT ANALYST Gender Identity Not on file Sexual Orientation Not on file documented as of this encounter Plan of Treatment Not on file documented as of this encounter Visit Diagnoses Diagnosis Displacement of cervical intervertebral disc without myelopathy- Primary documented in this encounter Care Teams Wireless Construction Manager Relationship Specialty Start Date End Date Neel Harris MD [address] [place] [phone] PCP - General 06/26/06 documented as of this encounter
--- OUTSIDE RECORDS SUMMARY | 2025-05-29 04:49 | XMS_ITS | Encounter Summary ---
Author Organization [facility] Address [address] [place] [address] Care Team Providers Care Collar Sewer Name Role Phone Neel Harris MD Primary Care Provider +1- [phone] Encounter Details Date Type Department Care Team (Late st Contact Info) Description 08/20/2006 Outpatient [facility] [address] [place] [phone] Social History Tobacco Use Types Packs/Day Years Used Date Smoking Tobacco: Never Assessed Comments Unknown Sex and Gender Information Value Date Recorded Sex Assigned at Not on file Legal Sex Female 5:28 AM HOUSE SHORER Gender Identity Not on file Sexual Orientation Not on file documented as of this encounter Plan of Treatment Not on file documented as of this encounter Visit Diagnoses Not on filedocumented in this encounter Care Teams Collar Sewer Relationship Specialty Start Date End Date Neel Harris MD [address] [place] [phone] PCP - General 06/26/06 documented as of this encounter
--- OUTSIDE RECORDS SUMMARY | 2025-05-29 04:49 | XMS_ITS | Encounter Summary ---
Author Organization [facility] Address [address] [place] [address] Care Team Providers Care Care Transition Mgr Name Role Phone Neel Harris MD Primary Care Provider +1- [phone] Encounter Details Date Type Department Care Team (Late st Contact Info) Description 10/10/2006 Outpatient [facility] [address] [place] [phone] Social History Tobacco Use Types Packs/Day Years Used Date Smoking Tobacco: Never Assessed Comments Unknown Sex and Gender Information Value Date Recorded Sex Assigned at Not on file Legal Sex Female 5:28 AM WELDER APPRENTICE GAS Gender Identity Not on file Sexual Orientation Not on file documented as of this encounter Plan of Treatment Not on file documented as of this encounter Visit Diagnoses Not on filedocumented in this encounter Care Teams Care Transition Mgr Relationship Specialty Start Date End Date Neel Harris MD [address] [place] [phone] PCP - General 06/26/06 documented as of this encounter
--- OUTSIDE RECORDS SUMMARY | 2025-05-29 04:49 | XMS_ITS | Encounter Summary ---
Author Organization [facility] Address [address] [place] [address] Care Team Providers Care Chief Inspector Name Role Phone Neel Harris MD Primary Care Provider +1- [phone] Encounter Details Date Type Department Care Team (Late st Contact Info) Description 09/27/2006 Outpatient Historical [facility] [address] [facility] [address] [place] [address] [place] [address] [facility] [address] [place] [address] Other Allied Disorders of Spine (Primary Dx) Social History Tobacco Use Types Packs/Day Years Used Date Smoking Tobacco: Never Assessed Comments Unknown Sex and Gender Information Value Date Recorded Sex Assigned at Not on file Legal Sex Female 5:28 AM ASSOCIATE BUYER Gender Identity Not on file Sexual Orientation Not on file documented as of this encounter Plan of Treatment Not on file documented as of this encounter Visit Diagnoses Diagnosis Other allied disorders of spine- Primary documented in this encounter Care Teams Chief Inspector Relationship Specialty Start Date End Date Neel Harris MD [address] [phone] PCP - General 06/26/06 documented as of this encounter
--- OUTSIDE RECORDS SUMMARY | 2025-05-29 04:49 | XMS_ITS | Clinical Summary ---
Author Organization [facility] Abisai gomez Shane Address [address] [place] [address] Phone Care Team Providers Care Clinical Psychologist Licensed Name Role Phone Neel Harris MD Primary Care Provider [phone]- [phone] Allergies Active Allergy Reactions Criticality Noted Date Comments Acetaminophen Hives High 06/10/2018 Adhesive Hives High 06/10/2018 Celecoxib Hives High 06/10/2018 Hydrocodone Nausea and Vomiting Low 06/10/2018 Nsaids (Non-Steroidal Anti-Inflammatory Drug) Hives High 06/10/2018 Oxycodone Nausea and Vomiting Low 06/10/2018 Perfume Headache Low 06/10/2018 Sitagliptin Hives High 06/10/2018 Tramadol Nausea and Vomiting Low 06/10/2018 Medications dicyclomine (BENTYL) 10 mg capsule Take 10 mg by mouth 2 times daily. Active metFORMIN (GLUCOPHAGE) 1,000 mg tablet Take 1,000 mg by mouth 2 times daily with meals. Active metoprolol tartrate (LOPRESSOR) 25 mg tablet Take 25 mg by mouth 2 times daily. Active conjugated estrogens-medro xyPROGESTERone (PREMPRO) 0.45-1.5 mg Tablet Take 1 Tablet by mouth daily. Active cetirizine (ZyrTEC) 10 mg tablet Take 10 mg by mouth daily. Active promethazine (PHENERGAN) 25 mg tablet Take 25 mg by mouth every 6 hours as needed for Nausea/Emesi s. Active cholestyramine, with sugar, (QUESTRAN) 4 gram Powder in Packet Take 1 Packet by mouth 2 times daily. 180 Packet 4 10/16/2018 Active Accu-Chek Meagan Plus test strp Strip USE 1 STRIP TO CHECK GLUCOSE ONCE DAILY (E11.65) 04/12/2020 Active glipiZIDE (GLUCOTROL XL) 10 mg Extended Release 24 hour tablet Take 10 mg by mouth 2 times daily. 03/16/2020 Active Accu-Chek Softclix Lancets USE 1 TO CHECK GLUCOSE ONCE DAILY (E11.8) 04/12/2020 Active Synthroid 200 mcg tablet Take 200 mcg by mouth daily. 04/01/2020 Active lisinopril-hydr oCHLOROthiazide (ZESTORETIC) 20-12.5 mg tablet Take 20 Tablets by mouth daily. 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 Immunizations Immunization Administration Dates Next Due (PNEUMOVAX [...] Packs/Day Years Used Date Smoking Tobacco: Never Smokeless Tobacco: Never Alcohol Use Standard Drinks/Week Comments No 0 (1 standard drink = 0.6 oz pur e alcohol) Comments Unknown Sex and Gender Information Value Date Recorded Sex Assigned at Not on file Legal Sex Female 5:28 AM SINK MAKER Gender Identity Not on file Sexual Orientation Not on file Last Filed Vital Signs Vital Sign Reading Time Taken Comments Blood Pressure 137/77 07/03/2018 3:45 PM CDT Pulse 85 07/03/2018 3:45 PM CDT Temperature - - Respiratory Rate 16 07/03/2018 3:45 PM CDT Oxygen Saturation 97% 07/03/2018 3:45 PM CDT Inhaled Oxygen Concentration - - Weight 98 kg (216 lb) 06/30/2018 1:00 PM CDT Height 165.1 cm (5' 5 ) 06/30/2018 1:00 PM CDT Body Mass Index 35.94 06/30/2018 1:00 PM CDT Plan of Treatment Health Maintenance Due Date Last Done Comments DTAP/TDAP/TD VACCINES (1 - Tdap) 1973 COLORECTAL SCREENING 1999 FIT-DNA Q 3 years 1999 Flex Sig/CT Colonography Q 5 years 1999 Colorectal Cancer Screening 05/05/2003 FIT/FOBT Q 1 year 05/05/2003 05/05/2002 ZOSTER VACCINE (1 of 2) 01/17/2004 PNEUMOCOCCAL VACCINE 50+ YEA RS (2 of 2 - PCV) 08/11/2004 08/11/2003 BREAST CANCER SCREENING 01/20/2011 01/21/20 10, 11/11/2008, 07/31/2007 OSTEOPOROSIS SCREENING 2019 INFLUENZA VACCINE (#1) 2025 08/11/2003 RSV VACCINE (60+ or ) (1 - 1-dose 75+ series) 2029 Procedures Procedure Name Priority Date/Time Associated Diagnosis Comments MAMMO SCREENING BILAT Routine 01/20/2010 1:12 PM CDT Other Screening Mammogram from Last 3 Months or Most Recently [...] Most Recently Relevant to Health Maintenance Insurance [address] [place] [address] MEDICARE PART A AND B [employer] Advance Directives For more information, please contact: [phone] * Full Code (Latest Code Status on File) Date Activated Date Inactivated Comments 07/03/2018 2:31 PM 07/03/2018 6:04 PM Care Teams Clinical Psychologist Licensed Relationship Specialty Start Date End Date Neel Harris MD [address] [place] [phone] PCP - General 06/26/06
--- OUTSIDE RECORDS SUMMARY | 2025-05-29 04:49 | XMS_ITS | Encounter Summary ---
Author Organization [facility] Address [address] [place] [address] Care Team Providers Care Paper Cone Grader Name Role Phone Neel Harris MD Primary Care Provider +1- [phone] Encounter Details Date Type Department Care Team (Latest Contact Info) Description 07/10/2006 Outpatient Historical [facility] Chronic [facility] [address] [place] [address] [place] [address] [facility] [address] [place] [address] Encounters for Unspecified Administrative Purpose (Primary Dx) Social History Tobacco Use Types Packs/Day Years Used Date Smoking Tobacco: Never Assessed Comments Unknown Sex and Gender Information Value Date Recorded Sex Assigned at Not on file Legal 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
--- OUTSIDE RECORDS SUMMARY | 2025-05-29 04:49 | XMS_ITS | Encounter Summary ---
Author Organization [facility] Address [address] [place] [address] Care Team Providers Care Cutter Banana Room Name Role Phone Neel Harris MD Primary Care Provider +1- [phone] Encounter Details Date Type Department Care Team (Latest Contact Info) Description 10/10/2006 Outpatient Historical [facility] Chronic Pain [address] [place] [address] [place] [address] [facility] [address] [place] [address] Headache (Primary Dx) Social History Tobacco Use Types Packs/Day Years Used Date Smoking Tobacco: Never Assessed Comments Unknown Sex and Gender Information Value Date Recorded Sex Assigned at Not on file Legal Sex Female 5:28 AM ONLINE RETAILER Gender Identity Not on file Sexual Orientation Not on file documented as of this encounter Plan of Treatment Not on file documented as of this encounter Visit Diagnoses Diagnosis Headache(784.0)- Primary Headache documented in this encounter Care Teams Cutter Banana Room Relationship Specialty Start Date End Date Neel Harris MD [address] [place] [phone] PCP - General 06/26/06 documented as of this encounter
--- OUTSIDE RECORDS SUMMARY | 2025-05-29 04:49 | XMS_ITS | Encounter Summary ---
Author Organization [facility] Address [address] [place] [address] Care Team Providers Care Community Cultural Development Officer Name Role Phone Neel Harris MD Primary Care Provider +1- [phone] Encounter Details Date Type Department Care Team (Late st Contact Info) Description 07/03/2006 [facility] [address] [place] [id number] Social History Tobacco Use Types Packs/Day Years Used Date Smoking Tobacco: Never Assessed Comments Unknown Sex and Gender Information Value Date Recorded Sex Assigned at Not on file 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
--- OUTSIDE RECORDS SUMMARY | 2025-05-29 04:49 | XMS_ITS | Encounter Summary ---
Author Organization [facility] Address [address] [place] [address] Care Team Providers Care Legal Archivist Name Role Phone Neel Harris MD Primary Care Provider +1- [phone] Encounter Details Date Type Department Care Team (Late st Contact Info) Description 06/26/2006 Outpatient Historical [facility] [address] [place] [phone] [place] [address] [facility] [address] [place] [address] Cervicalgia (Primary Dx); Pain in Limb; Exostosis of Unspecified Site Social History Tobacco Use Types Packs/Day Years Used Date Smoking Tobacco: Never Assessed Comments Unknown Sex and Gender Information Value Date Recorded Sex Assigned at Not on file 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
--- OUTSIDE RECORDS SUMMARY | 2025-05-29 04:49 | XMS_ITS | Encounter Summary ---
Author Organization [facility] Address [address] [place] [address] Care Team Providers Care Package Lift Operator Name Role Phone Neel Harris MD Primary Care Provider +1- [phone] Encounter Details Date Type Department Care Team (Late st Contact Info) Description 09/27/2006 Outpatient Historical [facility] [address] [place] [phone] [place] [address] [facility] [address] [place] [address] Exostosis of Unspecified Site (Primary Dx) Social History Tobacco Use Types Packs/Day Years Used Date Smoking Tobacco: Never Assessed Comments Unknown Sex and Gender Information Value Date Recorded Sex Assigned at Not on file 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
--- NOTE | 2025-05-29 05:06 | W.ED.SKABFB ---
Documented by User: Zaid Arvizu MD 05/29/25 05:47 HPI - Skin/Abscess/Foreign Bdy General: Chief complaint: Skin/Abscess/Foreign Body Stated complaint: allergic reaction. rash after bypass Time Seen by Provider: 05/29/25 04:51 History of Present Illness: Patient was of severe itching on her chest where she had a triple bypass surgery. This was done in [place]. She complains of burning pain to it as well. She also has a rash ring underneath both breast. She has had trouble controlling her blood sugar. He has been below 200 but staying in the upper 100s and above 150 where she previously had better control of that before the surgery. Patient is multiple allergies and has issues with adhesive and she believes that is what caused the irritation. Related Data Home Medications ?Medication ?Instructions ?Recorded ?Confirmed cetirizine 10 mg capsule (Zyrtec) 10 mg PO DAILY 11/19/19 04/28/25 dicyclomine 10 mg capsule 10 mg PO BID 11/19/19 04/28/25 metoprolol succinate 25 mg 25 mg PO BID 01/04/20 04/28/25 tablet,extended release 24 hr glyburide 5 mg tablet 10 mg PO BID 08/16/20 04/28/25 levothyroxine 150 mcg capsule 150 mcg PO DAILY 08/16/20 04/28/25 metformin 1,000 mg tablet 1,000 mg PO BID 01/13/21 04/28/25 famotidine 40 mg tablet 40 mg PO DAILY 03/25/25 04/28/25 losartan 50 mg tablet 50 mg PO DAILY 03/25/25 04/28/25 Previous Rx's ?Medication ?Instructions ?Recorded evolocumab 140 mg/mL subcutaneous 140 mg SUBCUT .[id number] #2 mL 03/25/25 pen injector (Enmanuel Avila) isosorbide mononitrate 30 mg 30 mg PO DAILY #60 tabs 04/21/25 tablet,extended release 24 hr nystatin 100,000 unit/gram topical 1 applic topical BID #30 grams 05/29/25 powder (Klayesta) Allergies Allergy/AdvReac Type Severity Reaction Status Date / Time celecoxib (From Celebrex) Allergy Mild ALGY-Hives Verified 05/29/25 04:54 povidone-iodine (From Allergy Mild ALGY-Rash Verified 05/29/25 04:54 Betadine) saxagliptin Allergy Mild ALGY-Hives Verified 05/29/25 04:54 sitagliptin Allergy Mild ALGY-Hives Verified 05/29/25 04:54 soap (From Betadine) Allergy Mild ALGY-Rash Verified 05/29/25 04:54 sulfamethoxazole (From Allergy Mild ADR-Diarrhe Verified 05/29/25 04:54 Bactrim) a trimethoprim (From Bactrim) Allergy Mild ADR-Diarrhe Verified 05/29/25 04:54 a acetaminophen Allergy ALGY-Hives Verified 05/29/25 04:54 codeine Allergy ADR-Vomitin Verified 05/29/25 04:54 g NSAIDS (Non-Steroidal Allergy ALGY-Hives Verified 05/29/25 04:54 Anti-Inflamma tramadol Allergy ALGY-Hives Verified 05/29/25 04:54 PFSH ED PFSH: Medical History (Updated 05/29/25 @ 07:05 by Rashaun Darling MD) Localized osteoarthritis of left knee Greater trochanteric bursitis of right hip Osteoarthritis of right hip Post-menopause on HRT (hormone replacement therapy) Well woman exam with routine gynecological exam Hypertension Hypothyroidism Diabetes Surgical History Status post hysteroscopic polypectomy 10/16/2017- Performed by Dr. Reeves at [facility] in [place], [place]. S/P cataract extraction 2004, bilateral S/P left rotator cuff repair S/P spinal fusion 07/2010 S/P cervical spinal fusion 06/2007 S/P arthroscopy of right shoulder 07/2007 S/P cholecystectomy S/P bilateral oophorectomy unknown date LSO S/P dilatation and curettage 2001, 2011, 2016 Status post hip surgery 2019- right hip abductor repair, Dr. Rodrigez Family History Grandmother Diabetes maternal Daughter No problems noted. Brother Diabetes Heart disease Hyperlipidemia Father Heart disease Hyperlipidemia Hypertension Sister Breast cancer age onset unknown Colon cancer age onset unknown Denies family history of Ovarian cancer Clotting disorder Anesthesia complication Bleeding disorder Uterine cancer Thyroid disease Stroke Social History Smoking and tobacco/nicotine status: never used tobacco/nicotine Alcohol intake: never Substance/Drug Use: never Course Vital Signs: Vital signs: Vital Signs Temperature 98.7 F 05/29/25 04:48 Pulse Rate 96 05/29/25 06:00 Respiratory Rate 17 05/29/25 06:00 Blood Pressure 106/61 05/29/25 06:00 Pulse Oximetry 97 05/29/25 06:00 Oxygen Delivery Me thod Room Air 05/29/25 04:48 MDM - Skin/Abscess/Foreign Bdy Medicial Decision Making Patient with candidiasis or tinea curious underneath the breasts. Will do nystatin powder for this. Concerning patient's severe itching due to reaction to adhesive on the tape. Giving Benadryl and Vistaril. Due to shift change handing off to Dr. Cool Lab Data 05/29/25 05:00 05/29/25 05:00 Laboratory Results WBC 8.64 10^3/uL (3.29-11.43) 05/29/25 05:00 RBC 3.76 10^6/uL (3.85-5.65) L 05/29/25 05:00 Hgb 11.40 g/dL (11.27-16.99) 05/29/25 05:00 Hct 35.0 % (36-47) L 05/29/25 05:00 MCV 93.1 fl (85-98) 05/29/25 05:00 MCH 30.3 pg (27-33) 05/29/25 05:00 MCHC 32.6 g/dL (30-55) 05/29/25 05:00 RDW 13.0 % (12.1-15.1) 05/29/25 05:00 Plt Count 570 10^3/cmm (157-399) H 05/29/25 05:00 MPV 8.8 fL (7.4-10.4) 05/29/25 05:00 Neut % (Auto) 55.6 % 05/29/25 05:00 Lymph % (Auto) 24.3 % 05/29/25 05:00 [place] % (Auto) 8.7 % 05/29/25 05:00 Eos % (Auto) 10.1 % 05/29/25 05:00 Baso % (Auto) 0.8 % 05/29/25 05:00 Neut # (Auto) 4.81 10^3/uL (1.8-7.7) 05/29/25 05:00 Lymph # (Auto) 2.1 10^3/uL (0.8-4.8) 05/29/25 05:00 [place] # (Auto) 0.8 10^3/uL (0.2-0.9) 05/29/25 05:00 Eos # (Auto) 0.9 10^3/uL (0.0-0.8) H 05/29/25 05:00 Baso # (Auto) 0.1 10^3/uL (0.0-0.1) 05/29/25 05:00 Nucleated RBC % (auto) 0 % 05/29/25 05:00 Nucleated RBCs # 0.0 /100WBC 05/29/25 05:00 ESR 9 mm/hr (0-15) 05/29/25 05:00 Sodium 135 mmol/L (136-145) L 05/29/25 05:00 Potassium 3.9 mmol/L (3.5-5.1) 05/29/25 05:00 Chloride 99 mmol/L (98-107) 05/29/25 05:00 Carbon Dioxide 24 mmol/L (22-29) 05/29/25 05:00 Anion Gap 15.9 (5-19) 05/29/25 05:00 BUN 10 mg/dL (8-23) 05/29/25 05:00 Creatinine 0.7 mg/dL (0.5-0.9) 05/29/25 05:00 GFR Calculation Not Reportable 05/29/25 05:00 Glucose 223 mg/dL (65-115) H 05/29/25 05:00 Calculated Osmolality 286 mOsm/kg (285-295) 05/29/25 05:00 Calcium 9.0 mg/dL (8.5-10.5) 05/29/25 05:00 Total Bilirubin 0.3 mg/dL (0.15-1.2) 05/29/25 05:00 AST 24 U/L (0-32) 05/29/25 05:00 ALT 23 U/L (0-33) 05/29/25 05:00 Alkaline Phosphatase 113 U/L (35-105) H 05/29/25 05:00 C-Reactive Protein 5.3 mg/L (0.0-4.9) H 05/29/25 05:00 Total Protein 7.5 g/dL (6.6-8.7) 05/29/25 05:00 Albumin 3.7 g/dL (3.5-5.2) 05/29/25 05:00 Globulin 3.8 g/dL (1.3-4.6) 05/29/25 05:00 No radiology studies performed this visit Discharge Plan Discharge Patient Disposition: Home Clinical Impression: Candidal intertrigo Condition: Stable Prescriptions: New nystatin [Klayesta] 100,000 unit/gram powder 1 applic topical BID Qty: 30 0RF No Action dicyclomine 10 mg capsule 10 mg PO BID Zyrtec 10 mg capsule 10 mg PO DAILY metoprolol succinate 25 mg tablet extended release 24 hr 25 mg PO BID levothyroxine 150 mcg capsule 150 mcg PO DAILY metformin 1,000 mg tablet 1,000 mg PO BID glyburide 5 mg tablet 10 mg PO BID losartan 50 mg tablet 50 mg PO DAILY famotidine 40 mg tablet 40 mg PO DAILY Repatha SureClick 140 mg/mL pen injector 140 mg SUBCUT .[id number] Qty: 2 11RF isosorbide mononitrate 30 mg tablet extended release 24 hr 30 mg PO DAILY Qty: 60 4RF Discharge Orders: Discharge ED (Routine); Ordered 05/29/25 Ordered By: Rashaun Darling Referrals: Neel Harris MD [Primary Care Provider, [facility]] Discharge Diet: Usual diet and Diabetic Discharge Activity: Resume usual activity Patient Instructions: Opioid Safety, Pain Management, Patient Portal & Irasema Instructions Activity Restrictions/Additional Instructions: It has been a pleasure caring for you in the emergency department. Please ensure that you follow-up with your primary care physician for review of all data obtained during this encounter including any incidental findings and laboratory values. Keep in mind that if your condition worsens in any way, I strongly recommend that you return to the emergency department for repeat evaluation immediately. Print Language: Sri Lankan Coding Level of Care Code ED Last Cleaner for Chg Fwd Documented by User: Rashaun Darling MD 05/29/25 07:09 HPI - Skin/Abscess/Foreign Bdy General: Chief complaint: Skin/Abscess/Foreign Body Stated complaint: allergic reaction. rash after bypass Time Seen by Provider: 05/29/25 04:51 Related Data Home Medications ?Medication ?Instructions ?Recorded ?Confirmed cetirizine 10 mg capsule (Zyrtec) 10 mg PO DAILY 11/19/19 04/28/25 dicyclomine 10 mg capsule 10 mg PO BID 11/19/19 04/28/25 metoprolol succinate 25 mg 25 mg PO BID 01/04/20 04/28/25 tablet,extended release 24 hr glyburide 5 mg tablet 10 mg PO BID 08/16/20 04/28/25 levothyroxine 150 mcg capsule 150 mcg PO DAILY 08/16/20 04/28/25 metformin 1,000 mg tablet 1,000 mg PO BID 01/13/21 04/28/25 famotidine 40 mg tablet 40 mg PO DAILY 03/25/25 04/28/25 losartan 50 mg tablet 50 mg PO DAILY 03/25/25 04/28/25 Previous Rx's ?Medication ?Instructions ?Recorded evolocumab 140 mg/mL subcutaneous 140 mg SUBCUT .[id number] #2 mL 03/25/25 pen injector (SnowShoe Stampalanis RodriguezParents R People) isosorbide mononitrate 30 mg 30 mg PO DAILY #60 tabs 04/21/25 tablet,extended release 24 hr nystatin 100,000 unit/gram topical 1 applic topical BID #30 grams 05/29/25 powder (Klayesta) Allergies Allergy/AdvReac Type Severity Reaction Status Date / Time celecoxib (From Celebrex) Allergy Mild ALGY-Hives Verified 05/29/25 04:54 povidone-iodine (From Allergy Mild ALGY-Rash Verified 05/29/25 04:54 Betadine) saxagliptin Allergy Mild ALGY-Hives Verified 05/29/25 04:54 sitagliptin Allergy Mild ALGY-Hives Verified 05/29/25 04:54 soap (From Betadine) Allergy Mild ALGY-Rash Verified 05/29/25 04:54 sulfamethoxazole (From Allergy Mild ADR-Diarrhe Verified 05/29/25 04:54 Bactrim) a trimethoprim (From Bactrim) Allergy Mild ADR-Diarrhe Verified 05/29/25 04:54 a acetaminophen Allergy ALGY-Hives Verified 05/29/25 04:54 codeine Allergy ADR-Vomitin Verified 05/29/25 04:54 g NSAIDS (Non-Steroidal Allergy ALGY-Hives Verified 05/29/25 04:54 Anti-Inflamma tramadol Allergy ALGY-Hives Verified 05/29/25 04:54 PFSH ED PFSH: Medical History (Updated 05/29/25 @ 07:05 by Rashaun Darling MD) Localized osteoarthritis of left knee Greater trochanteric bursitis of right hip Osteoarthritis of right hip Post-menopause on HRT (hormone replacement therapy) Well woman exam with routine gynecological exam Hypertension Hypothyroidism Diabetes Surgical History Status post hysteroscopic polypectomy 10/16/2017- Performed by Dr. Reeves at [facility] in [place], [place]. S/P cataract extraction 2004, bilateral S/P left rotator cuff repair S/P spinal fusion 07/2010 S/P cervical spinal fusion 06/2007 S/P arthroscopy of right shoulder 07/2007 S/P cholecystectomy S/P bilateral oophorectomy unknown date LSO S/P dilatation and curettage 2001, 2011, 2016 Status post hip surgery 2019- right hip abductor repair, Dr. Rodrigez Family History Grandmother Diabetes maternal Daughter No problems noted. Brother Diabetes Heart disease Hyperlipidemia Father Heart disease Hyperlipidemia Hypertension Sister Breast cancer age onset unknown Colon cancer age onset unknown Denies family history of Ovarian cancer Clotting disorder Anesthesia complication Bleeding disorder Uterine cancer Thyroid disease Stroke Social History Smoking and tobacco/nicotine status: never used tobacco/nicotine Alcohol intake: never Substance/Drug Use: never Course Vital Signs: Vital signs: Vital Signs Temperature 98.7 F 05/29/25 04:48 Pulse Rate 96 05/29/25 06:00 Respiratory Rate 17 05/29/25 06:00 Blood Pressure 106/61 05/29/25 06:00 Pulse Oximetry 97 05/29/25 06:00 Oxygen Delivery Me thod Room Air 05/29/25 04:48 MDM - Skin/Abscess/Foreign Bdy Medicial Decision Making Patient with candidiasis or tinea curious underneath the breasts. Will do nystatin powder for this. Concerning patient's severe itching due to reaction to adhesive on the tape. Giving Benadryl and Vistaril. Due to shift change handing off to Dr. Darling Signout time: 0600 Pending: Labs Patient's labs overall reassuring with negative ESR, no white count. Examination of the patient shows red intertrigo in the inframammary and sternal area. Minimal tenderness to palpation. No overlying warmth. Some satellite lesions present. Considered cellulitis versus intertrigo versus postoperative infection. Patient has follow-up on Saturday with performing surgeon in [place]. Considered need for antibiotic but given characteristic appearance very Citrus trialing nystatin powder and oral fluconazole tab so as not to worsen the candidal overgrowth. Patient counseled on reasons to return to the emergency department occluding no improved in 48 hours. Patient educated about reasons to return to the emergency department including signs of ongoing or changing condition. Advised to make an appointment with primary care or to establish care with a primary care provider to review all results from this encounter. This note was written with assistance of dictation software. Contact author for any clarification of typos. Rashaun Darling MD Lab Data 05/29/25 05:00 05/29/25 05:00 Laboratory Results WBC 8.64 10^3/uL (3.29-11.43) 05/29/25 05:00 RBC 3.76 10^6/uL (3.85-5.65) L 05/29/25 05:00 Hgb 11.40 g/dL (11.27-16.99) 05/29/25 05:00 Hct 35.0 % (36-47) L 05/29/25 05:00 MCV 93.1 fl (85-98) 05/29/25 05:00 MCH 30.3 pg (27-33) 05/29/25 05:00 MCHC 32.6 g/dL (30-55) 05/29/25 05:00 RDW 13.0 % (12.1-15.1) 05/29/25 05:00 Plt Count 570 10^3/cmm (157-399) H 05/29/25 05:00 MPV 8.8 fL (7.4-10.4) 05/29/25 05:00 Neut % (Auto) 55.6 % 05/29/25 05:00 Lymph % (Auto) 24.3 % 05/29/25 05:00 [place] % (Auto) 8.7 % 05/29/25 05:00 Eos % (Auto) 10.1 % 05/29/25 05:00 Baso % (Auto) 0.8 % 05/29/25 05:00 Neut # (Auto) 4.81 10^3/uL (1.8-7.7) 05/29/25 05:00 Lymph # (Auto) 2.1 10^3/uL (0.8-4.8) 05/29/25 05:00 [place] # (Auto) 0.8 10^3/uL (0.2-0.9) 05/29/25 05:00 Eos # (Auto) 0.9 10^3/uL (0.0-0.8) H 05/29/25 05:00 Baso # (Auto) 0.1 10^3/uL (0.0-0.1) 05/29/25 05:00 Nucleated RBC % (auto) 0 % 05/29/25 05:00 Nucleated RBCs # 0.0 /100WBC 05/29/25 05:00 ESR 9 mm/hr (0-15) 05/29/25 05:00 Sodium 135 mmol/L (136-145) L 05/29/25 05:00 Potassium 3.9 mmol/L (3.5-5.1) 05/29/25 05:00 Chloride 99 mmol/L (98-107) 05/29/25 05:00 Carbon Dioxide 24 mmol/L (22-29) 05/29/25 05:00 Anion Gap 15.9 (5-19) 05/29/25 05:00 BUN 10 mg/dL (8-23) 05/29/25 05:00 Creatinine 0.7 mg/dL (0.5-0.9) 05/29/25 05:00 GFR Calculation Not Reportable 05/29/25 05:00 Glucose 223 mg/dL (65-115) H 05/29/25 05:00 Calculated Osmolality 286 mOsm/kg (285-295) 05/29/25 05:00 Calcium 9.0 mg/dL (8.5-10.5) 05/29/25 05:00 Total Bilirubin 0.3 mg/dL (0.15-1.2) 05/29/25 05:00 AST 24 U/L (0-32) 05/29/25 05:00 ALT 23 U/L (0-33) 05/29/25 05:00 Alkaline Phosphatase 113 U/L (35-105) H 05/29/25 05:00 C-Reactive Protein 5.3 mg/L (0.0-4.9) H 05/29/25 05:00 Total Protein 7.5 g/dL (6.6-8.7) 05/29/25 05:00 Albumin 3.7 g/dL (3.5-5.2) 05/29/25 05:00 Globulin 3.8 g/dL (1.3-4.6) 05/29/25 05:00 Discharge Plan Discharge Patient Disposition: Home Clinical Impression: Candidal intertrigo Condition: Stable Prescriptions: New nystatin [Klayesta] 100,000 unit/gram powder 1 applic topical BID Qty: 30 0RF No Action dicyclomine 10 mg capsule 10 mg PO BID Zyrtec 10 mg capsule 10 mg PO DAILY metoprolol succinate 25 mg tablet extended release 24 hr 25 mg PO BID levothyroxine 150 mcg capsule 150 mcg PO DAILY metformin 1,000 mg tablet 1,000 mg PO BID glyburide 5 mg tablet 10 mg PO BID losartan 50 mg tablet 50 mg PO DAILY famotidine 40 mg tablet 40 mg PO DAILY Repatha SureClick 140 mg/mL pen injector 140 mg SUBCUT .[id number] Qty: 2 11RF isosorbide mononitrate 30 mg tablet extended release 24 hr 30 mg PO DAILY Qty: 60 4RF Discharge Orders: Discharge ED (Routine); Ordered 05/29/25 Ordered By: Rashaun Darling Referrals: Neel Harris MD [Primary Care Provider, Family Practice] Discharge Diet: Usual diet and Diabetic Discharge Activity: Resume usual activity Patient Instructions: Opioid Safety, Pain Management, Patient Portal & Irasema Instructions Activity Restrictions/Additional Instructions: It has been a pleasure caring for you in the emergency department. Please ensure that you follow-up with your primary care physician for review of all data obtained during this encounter including any incidental findings and laboratory values. Keep in mind that if your condition worsens in any way, I strongly recommend that you return to the emergency department for repeat evaluation immediately. Print Language: Sri Lankan Coding Level of Care Code ED Last Cleaner for Jaime Glass
[2025-05-29 05:23] LABS: Hematocrit 35.0 % (36-47); Hemoglobin 11.40 g/dL (11.27-16.99); Mean Corpuscular HGB Conc 32.6 g/dL (30-55); Mean Corpuscular Hemoglobin 30.3 pg (27-33); Mean Corpuscular Volume 93.1 fl (85-98); Nucleated Red Blood Cells % 0 %; Platelet Count 570 10^3/cmm (157-399); Red Blood Count 3.76 10^6/uL (3.85-5.65); White Blood Count 8.64 10^3/uL (3.29-11.43)
[2025-05-29] MEDS: diphenhydrAMINE 50 mg/mL SDV 1mL 12.5 MG IVP (05:31)
[2025-05-29 05:41] LABS: Alanine Aminotransferase 23 U/L (0-33); Albumin Level 3.7 g/dL (3.5-5.2); Alkaline Phosphatase 113 U/L (35-105); Anion Gap 15.9 (5-19); Aspartate Amino Transferase 24 U/L (0-32); Blood Urea Nitrogen 10 mg/dL (8-23); Calcium 9.0 mg/dL (8.5-10.5); Carbon Dioxide 24 mmol/L (22-29); Chloride 99 mmol/L (98-107); Creatinine Clr Calc Pharmacy 73.6196; Globulin 3.8 g/dL (1.3-4.6); Glucose 223 mg/dL (65-115); Osmolality Calculated 286 mOsm/kg (285-295); Potassium 3.9 mmol/L (3.5-5.1); Sodium 135 mmol/L (136-145); Total Protein 7.5 g/dL (6.6-8.7)
[2025-05-29 06:00] VITALS: BP 106/61; PULSE 96; RESP 17; O2SAT 97
== END 2025-05-29 07:24 | disposition home or self-care (01) ==
PROVIDERS: Emergency Medicine; Emergency Provider General Practice; PCP Family Medicine
DX: L30.4 Erythema intertrigo (principal); Z79.84 Long term (current) use of oral hypoglycemic drugs; E11.9 Type 2 diabetes mellitus without complications; I10 Essential (primary) hypertension
CPT/HCPCS: 80053; 85025; 85651; 86140; 96374; 99284; J1200; J9999

== ENCOUNTER → 2025-06-07 14:06 | Outpatient (BNVA) | payer MEDICARE, OTHER, SELFPAY | PROVIDERS: PCP Family Medicine; Visit Provider Nurse Practitioner Family | DX: I25.118 Atherosclerotic heart disease of native coronary artery with other forms of angina pectoris (principal); I10 Essential (primary) hypertension; E78.5 Hyperlipidemia, unspecified; M70.61 Trochanteric bursitis, right hip; D86.9 Sarcoidosis, unspecified; J84.10 Pulmonary fibrosis, unspecified; R00.0 Tachycardia, unspecified; B37.9 Candidiasis, unspecified; Z79.02 Long term (current) use of antithrombotics/antiplatelets; Z79.82 Long term (current) use of aspirin; Z95.1 Presence of aortocoronary bypass graft; I25.2 Old myocardial infarction; R59.0 Localized enlarged lymph nodes; R93.89 Abnormal findings on diagnostic imaging of other specified body structures | CPT/HCPCS: 99213 ==

== ENCOUNTER → 2025-06-29 09:18 | Outpatient (BNVA) | payer MEDICARE, OTHER, SELFPAY | PROVIDERS: PCP Family Medicine; Visit Provider Internal Medicine | DX: R59.0 Localized enlarged lymph nodes (principal); J84.10 Pulmonary fibrosis, unspecified; J84.9 Interstitial pulmonary disease, unspecified; D86.9 Sarcoidosis, unspecified; I25.810 Atherosclerosis of coronary artery bypass graft(s) without angina pectoris; K21.9 Gastro-esophageal reflux disease without esophagitis; I10 Essential (primary) hypertension; J44.9 Chronic obstructive pulmonary disease, unspecified; R06.00 Dyspnea, unspecified | CPT/HCPCS: 36415; 82009; 85651; 86038; 86431; 86480; 99204 ==

== ENCOUNTER 2025-07-06 08:59 | Outpatient (CLI) | payer MEDICARE, OTHER, SELFPAY ==
--- NOTE | 2025-07-06 09:15 | CT_ITS ---
WS: [id number] CT CHEST TECHNIQUE: Noncontrast CT of the chest with coronal and sagittal reformatted images. CLINICAL INFORMATION: Possible malignancy, mediastinal adenopathy COMPARISON: CTA chest 10/09/2024 DLP: [id number] scans at [facility] use at least one of these dose optimization techniques: automated exposure control; mA and/or kV adjustment per patient size (includes targeted exams where dose is matched to clinical indication); or iterative reconstruction. FINDINGS: Prior sternotomy. CABG. Postoperative changes lower cervical spine. Normal caliber thoracic aorta. Calcified hilar lymph nodes. Prominent and numerous mediastinal and hilar lymph nodes similar to previous. 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 Adrenal glands are normal. Tiny esophageal hiatal hernia. Splenic granulomas. Splenic artery calcification. Thoracic kyphosis with ankylosis. CT/CT chest ION (PULM ONLY) [id number] IMPRESSION: Images obtained for navigational bronchoscopy purposes
== END 2025-07-06 09:00 | disposition home or self-care (01) ==
LOC: RAD 08:59
PROVIDERS: PCP Family Medicine; Visit Provider Internal Medicine
DX: J84.10 Pulmonary fibrosis, unspecified (principal); R06.00 Dyspnea, unspecified; R59.0 Localized enlarged lymph nodes
CPT/HCPCS: 71250

== ENCOUNTER → 2025-07-22 14:25 | Outpatient (BNVA) | payer MEDICARE, OTHER, SELFPAY | PROVIDERS: PCP Family Medicine; Visit Provider Internal Medicine Cardiovascular Disease | DX: I25.10 Atherosclerotic heart disease of native coronary artery without angina pectoris (principal); Z95.1 Presence of aortocoronary bypass graft; I10 Essential (primary) hypertension; J84.10 Pulmonary fibrosis, unspecified; E78.5 Hyperlipidemia, unspecified; F17.200 Nicotine dependence, unspecified, uncomplicated | CPT/HCPCS: 99214 ==

== ENCOUNTER 2025-08-13 10:20 | Outpatient (CLI) | payer MEDICARE, OTHER, SELFPAY ==
--- NOTE | 2025-08-13 10:30 | PETR_ITS ---
PROCEDURE INFORMATION: Exam: PET/CT Skull Base to Mid-thigh Exam date and time: 08/13/2025 11:37 AM Age: 70 years old Clinical indication: Pain: Pelvic and perineal pain; Prior surgery; Surgery date: 6+ months; Surgery type: Heart and gb; Additional info: R10.2 - pelvic and perineal pain LABS AND CLINICAL REPORTS: Glucose: 178 mg/dl Treatment strategy for malignancy (PET staging): Initial Staging (PI) TECHNIQUE: Imaging protocol: Following at least four-hour fasting and following the injection of radiopharmaceutical, low dose CT images were obtained. Then, PET images were obtained. Attenuation corrected images were constructed using the CT scan. Fused images of PET and CT were reviewed. The standardized uptake values (SUV) reported below are maximum values within a region of interest, expressed in gm/ml. Exam includes orbital meatal line to mid-thigh. SUV normalization method: BodyWeight Radiopharmaceutical: 10.05 mCi F-18 FDG (Fluorodeoxyglucose), IV. Time of imaging post radiopharmaceutical administration: 55 minutes Injection site: right forearm COMPARISON: 1. CT angio chest [id number] 10/09/2024 2:[address] chest ION (PULM ONLY) [id number] 07/06/2025 9:[address] abdomen pelvis w con* [id number] 05/12/2023 11:41 PM FINDINGS: Brain: Visualized brain has normal physiologic uptake. Pharynx: No abnormal uptake. Larynx: No abnormal uptake. Lungs, pleura and trachea: Mild low-level gravitational versus inflammatory uptake at the posterior left lung base. Stable fibrotic changes. No consolidation or mass. Right lung calcified granulomata. Heart: Normal physiologic uptake. Coronary arteries: Heavy coronary artery calcification. Status post CABG. Mediastinal space: No abnormal uptake. Liver: No abnormal uptake. Gallbladder and biliary ducts: No abnormal uptake. Prior cholecystectomy. Pancreas: No abnormal uptake. Spleen: No abnormal uptake. Calcified granulomata. Adrenal glands: No abnormal uptake. Kidneys and ureters: Normal physiologic uptake. Stomach and bowel: Diffuse FDG uptake along the colon without underlying CT abnormality is likely benign physiologic or inflammatory. Colonic diverticulosis without findings of diverticulitis. Vasculature: No abnormal uptake. Moderate systemic atherosclerotic calcification without aortic aneurysm. Lymph nodes: Low-level FDG uptake at mediastinal (index right upper paratracheal node measures 9 mm in the short axis and shows SUV max 4.2 on axial image 83) and bilateral hilar lymph nodes (index calcified right hilar node shows SUV max 3.5 on axial image 95 and left hilar uptake shows SUV max 3.8 on axial image 99 without discretely measurable lymph node), which show stable mildly prominent size and calcifications. Skeleton: Degenerative changes along the spine, shoulders and sacroiliac joints. Left humeral head suture anchor. C5-C6 ACDF. L3-5 posterior instrumented fusion hardware. Median sternotomy with associated low-level uptake likely representing postsurgical change. No adjacent soft tissue thickening or fat stranding. Soft tissues: No abnormal uptake in the visualized head, neck, chest, abdomen, pelvis, and extremities. Superficial subcutaneous 1.1 cm right upper back nodule with broad dermal interface on axial image 81 likely represents epidermal inclusion cyst. Similar smaller 0.8 cm nodule at the posterior left lower neck/upper back on axial image 65 also likely represents epidermal inclusion cyst. METRICS: Mediastinal blood pool: SUV mean 2.2 Liver uptake: SUV mean 3.3 PET/PET skull to thigh INIT [id number] IMPRESSION: 1. Grossly stable mildly FDG avid, mildly prominent mediastinal and bilateral hilar lymph nodes, some of which are calcified, are not entirely specific but favored to be benign granulomatous with possible reactive element. 2. Additional chronic and incidental findings as above.
== END 2025-08-13 10:21 | disposition home or self-care (01) ==
PROVIDERS: PCP Family Medicine; Visit Provider Internal Medicine
DX: R10.20 Pelvic and perineal pain unspecified side (principal); G89.29 Other chronic pain; R59.1 Generalized enlarged lymph nodes; R91.8 Other nonspecific abnormal finding of lung field; J84.10 Pulmonary fibrosis, unspecified; I25.10 Atherosclerotic heart disease of native coronary artery without angina pectoris; Z98.890 Other specified postprocedural states; Z90.49 Acquired absence of other specified parts of digestive tract; D73.89 Other diseases of spleen; R93.89 Abnormal findings on diagnostic imaging of other specified body structures; K57.30 Diverticulosis of large intestine without perforation or abscess without bleeding; I70.0 Atherosclerosis of aorta; M47.9 Spondylosis, unspecified; M19.011 Primary osteoarthritis, right shoulder; M19.012 Primary osteoarthritis, left shoulder; M46.1 Sacroiliitis, not elsewhere classified; Z96.89 Presence of other specified functional implants
CPT/HCPCS: 78815; A9552

== ENCOUNTER 2025-08-21 05:00 | Outpatient (RCR) | payer MEDICARE, OTHER, SELFPAY | END 2025-09-19 23:59 | disposition home or self-care (01) | LOC: SPT 05:00 | PROVIDERS: Visit Provider Family Medicine | DX: M54.31 Sciatica, right side (principal) | CPT/HCPCS: 97110; 97161 ==

== ENCOUNTER → 2025-08-30 14:11 | Outpatient (BNVA) | payer MEDICARE, OTHER, SELFPAY | PROVIDERS: Visit Provider Internal Medicine | DX: R59.0 Localized enlarged lymph nodes (principal); J84.10 Pulmonary fibrosis, unspecified; J84.9 Interstitial pulmonary disease, unspecified; D86.2 Sarcoidosis of lung with sarcoidosis of lymph nodes; I25.810 Atherosclerosis of coronary artery bypass graft(s) without angina pectoris; K21.9 Gastro-esophageal reflux disease without esophagitis | CPT/HCPCS: 99214; Q3014 ==

== ENCOUNTER 2025-09-20 05:00 | Outpatient (RCR) | payer MEDICARE, OTHER, SELFPAY | END 2025-10-20 23:59 | disposition home or self-care (01) | LOC: SPT 05:00 | PROVIDERS: Visit Provider Family Medicine | DX: M54.31 Sciatica, right side (principal) | CPT/HCPCS: 97110 ==